=== PATIENT | female | born 1980 | race Caucasian/White ===

== ENCOUNTER 2018-09-04 23:06 | Emergency (ER) | payer OTHER, SELFPAY ==
[2018-09-04 23:06] VITALS: BP 149/88; PULSE 119; RESP 20; TEMP 36.8; O2SAT 97; BMI 41.5
[2018-09-04 23:14] VITALS: PULSE 121; RESP 16; O2SAT 97
[2018-09-04 23:32] LABS: Absolute Lymphocyte Count 2.68 X10^3/ul (0.83-4.51); Absolute Neutrophil Count 6.1 X10^3/uL (2.0-7.7); Basophil# 0.04 X10^3/uL; Basophil% 0.4 % (0-1); Eosinophil# 0.09 X10^3/uL; Eosinophils% 0.9 % (0-5); Hemoglobin 12.4 g/dl (12.0-15.0); Lymphocyte # 2.68 X10^3/ul (4.0); Lymphocyte % 28.1 % (19-41); Mean Corp Hgb Conc 32.6 g/gl (32-36); Mean Corpuscular Hgb 30.8 pg (27.0-32.0); Mean Corpuscular Volume 94.5 fL (81-99); Mean Platelet Vol. 9.4 fl (6.2-12.0); Monocyte# 0.57 X10^3/uL; Neutrophil # 6.05 X10^3/uL (2.7-7.7); Neutrophil % 63.4 % (47-70); Platelet Count 493 K/mm3 (150-450); RBC Distribution Width CV 12.2 % (11.6-14.6); RBC Distribution Width SD 41.4 fl (35.1-43.9); Red Blood Count 4.02 M/mm3 (4.2-5.4); White Blood Count 9.5 K/mm3 (4.4-11.0)
[2018-09-04 23:34] LABS: POSITIVE COUNT NO; POSITIVE DIFFERENTIAL NO; POSITIVE MORPHOLOGY NO
[2018-09-04] MEDS: Ondansetron 4 MG/2 ML Vial IV (23:34)
[2018-09-04] MEDS: Morphine 4 MG/ML Syringe IV (23:34)
[2018-09-04] MEDS: 0.9% Normal Saline 1,000 ML 1000 ML IV (23:35)
[2018-09-04 23:54] LABS: ALB/GLOB Ratio 0.9 RATIO (0.9-2.4); AST(SGOT) 44 U/L (15-37); Alanine Aminotransfer ALT/SGPT 46 U/L (13-56); Albumin, Serum 3.7 g/dL (3.2-5.0); Alkaline Phosphatase 51 U/L (45-117); Anion Gap 10 (5-15); BUN 13 mg/dL (7-18); BUN/Creat Ratio 20.9 RATIO (10-20); Calcium,Total 9.1 mg/dL (8.5-10.1); Chloride 101 mmol/L (98-107); Creatinine, Serum 0.62 mg/dL (0.55-1.02); EST Glomerular Filtration Rate 116 mL/min (>60); Est Glom Filt Rate - Afr Amer 140 mL/min (>60); Estimated Creatinine Clearance 90.97 ml/min; Globulin 4.3 g/dL (2.2-4.2); Glucose 173 mg/dL (74-106); Lipase 234 U/L (73-393); Potassium 4.4 mmol/L (3.5-5.1); Sodium Level 137 mmol/L (136-145)
[2018-09-05 00:26] LABS: Mucous, Urine 0 SEEN /hpf (<or=2+); Red Blood Cells-Urine 0 SEEN /hpf (0-5); White Blood Cells 0 SEEN /hpf (0-5)
[2018-09-05 00:33] LABS: Color, Urine Straw (Yellow); Glucose, Dipstick Normal (Normal); Internal QC Validated? YES +Cl - CLEAR BKGD; Ketone-Dipstick Negative (Negative); Leukocyte Esterase-Dipstick Negative /ul (Negative); Nitrite-Dipstick Negative (Negative); Occult Blood-Urine Negative /ul (Negative); Pregnancy, Urine Negative Negative; Protein-Dipstick 30 mg/dl (Negative); Urine Bilirubin Dipstick Negative (Negative); Urine Clarity Clear (Clear); Urine Urobilinogen Normal (Normal)
[2018-09-05 00:35] LABS: Bacteria RARE /hpf (None Seen); Squamous Epithelial Cells - UA 0-5 SEEN /hpf (5-10)
--- NOTE | 2018-09-05 01:03 | ED.RN ---
with dr. mayer permission, pt took her home seizure medication.
[2018-09-05 01:11] VITALS: BP 141/105; PULSE 118; RESP 17; O2SAT 95
[2018-09-05] MEDS: Morphine 4 MG/ML Syringe IV (01:14)
--- NOTE | 2018-09-05 02:12 | ED.VISSUMM ---
- ER Visit Summary Date of Service: 09/05/18 Chief Complaint: Abdominal pain History of Present Illness: The patient is a 37 F who presents with abdominal pain. She initially developed pain 2 to 3 days ago. She complains of pain in her left lower back radiating into her left flank and left upper and lower quadrants. She describes as aching. It waxes and wanes. She currently rates it as an 8 out of 10. She also reports nausea without vomiting. She is also had diarrhea for the past 2 to 3 days. She has not checked her temperature but does report subjective fever and sweats. She is scheduled to see her primary care physician for the symptoms in 2 days but it worsened tonight so she presented here for evaluation. Her last menstrual period was 6 weeks ago. She does have a history of kidney stones and ovarian cysts. Physical Examination: Heart rate 119 vitals otherwise unremarkable Patient appears uncomfortable Moist mucous membranes Heart regular tachycardia Lungs are clear Abdomen soft nondistended she is tender in the left upper and lower quadrants she also has some CVA tenderness on the left No guarding no rebound abdomen is nondistended Alert Test Results: Labs notable for platelets 493, glucose 173, AST 44. Lipase normal. Urinalysis shows protein otherwise normal. CT of the abdomen and pelvis shows bilateral renal calculi no ureteral calculi or obstructive uropathy. The bladder was over distended. Emergency Department Course and Treatment: Work-up as above shows no clear explanation for the patient's symptoms. However she does not appear to have ureterolithiasis, clear infectious process, obstruction. She voided after CT and her postvoid residual bladder scan was 0. She does not appear to have urinary retention. She does have an appointment with her primary care physician tomorrow. She was advised to keep this appointment. She understands to return for new or worsening symptoms. She was discharged. Treatment Plan: [] Disposition: Discharge Impression: Abdominal paini This note was generated with [employer] dictation software. It may contain incorrect words, spelling, and punctuation that were not noted in review of the chart prior to signing ED Disposition - Plan for ED Patient: Referrals: Ricky Shelton MD [Primary Care Provider] -
--- NOTE | 2018-09-05 03:10 | ED.DEP ---
ED Disposition - Plan for ED Patient: Instructions: ED Flank Pain Uncertain Cause, ED Abdominal Pain Unkn Cause Referrals: Ricky Shelton MD [Primary Care Provider] -
[2018-09-05 03:20] VITALS: BP 113/71; PULSE 113; RESP 18; O2SAT 93
--- NOTE | 2018-09-05 23:24 | CT_ITS ---
HISTORY: LEFT FLANK PAIN EXAMINATION: CT Abdomen And Pelvis W/ Contrast TECHNIQUE: Helically acquired images were obtained of the abdomen and pelvis following IV contrast. A radiation dose optimization technique was used for this scan. IV Contrast dosage and agent: 100ml Isovue 300 Oral contrast: Yes COMPARISON: None FINDINGS: Large body habitus with protuberant abdomen. LOWER CHEST: Clear. No pleural effusion or pericardial effusion. Fatty liver with prominent hepatic enlargement. 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 The right hepatic lobe spans 27 cm in craniocaudal dimension. Secondary mild deformity of the right kidney. No focal hepatic lesion or biliary dilatation. Negative gallbladder. Spleen is upper normal in size. Normal pancreas. Both kidneys are normal in position. The left kidney shows an upper pole 3 mm calyceal stone and a mid pole 7 mm calyceal stone. 2 x 1 mm calyceal stone at the upper to mid pole of the right kidney. No hydronephrosis or hydroureter. Bilateral renal opacification without suspicious renal lesion or pyelonephritis. The adrenal glands are not enlarged. Normal abdominal aorta and IVC. No ascites or retroperitoneal lymph node enlargement. GI tract: No obstruction. The cecum is midline in position. The appendix is not visualized. No pericecal or pericolonic inflammatory changes. Pelvis: Anteverted uterus which is normal in size. Urinary bladder is overdistended with estimated volume of 600 cc. No bladder stones or marrow lesion. The pelvis shows no free fluid or lymph node enlargement. Bones: No acute osseous abnormality. CT/Abdomen/Pelvis WITH Contrast IMPRESSION: 1. Two left renal stones and single right renal stone. No associated hydronephrosis or obstructive uropathy. 2. Overdistention of the urinary bladder with estimated volume of 600 cc. No bladder stones. 3. Fatty liver which shows generalized prominent enlargement. Details above. 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 No ascites. Individualized dose optimization techniques were used for this CT. at 0229 Reported and signed by: Ishmael Chen MD Electronically Signed: Ishmael Chen, at 2:28 EDT Tel , Service support ,
== END 2018-09-05 03:36 | disposition home or self-care (01) ==
PROVIDERS: Emergency Provider Emergency Medicine; Family Provider Family Medicine; PCP Family Medicine
DX: R10.9 Unspecified abdominal pain (principal); M54.5 Low back pain; R11.0 Nausea; R19.7 Diarrhea, unspecified; R61 Generalized hyperhidrosis; N20.0 Calculus of kidney; J45.909 Unspecified asthma, uncomplicated; F41.9 Anxiety disorder, unspecified; G40.909 Epilepsy, unspecified, not intractable, without status epilepticus; Z87.442 Personal history of urinary calculi; Z87.42 Personal history of other diseases of the female genital tract; Z79.899 Other long term (current) drug therapy
CPT/HCPCS: 74177; 80053; 81001; 81025; 83690; 85025; 96361; 96374; 96375; 96376; 99284; J7030; Q9967; A4216; J2405

== ENCOUNTER 2019-03-20 22:32 | Emergency (ER) | payer OTHER, SELFPAY ==
[2019-03-20 22:33] VITALS: BP 132/88; PULSE 121; RESP 16; TEMP 37.2; O2SAT 97; BMI 39.2
--- NOTE | 2019-03-20 22:49 | RAD_ITS ---
HISTORY: SLIPPED ON SPILLED LIQUID EXAMINATION/TECHNIQUE: XR: Right humerus 3 views COMPARISON: None FINDINGS: No fracture, dislocation, or bony abnormality. No radiopaque foreign body. As visualized, the soft tissues are negative. RAD/Humerus min 2 Views IMPRESSION: Negative exam. No fracture or acute osseous abnormality. at 6014 Reported and signed by: Ishmael Chen MD Electronically Signed: Ishmael Chen, at 23:23 EST Tel , Service support ,
--- NOTE | 2019-03-20 22:49 | ED.DCSUM_ITS ---
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 She states her feet went out from underneath her and she landed on her right side. She did not strike her head. She has pain throughout her entire right arm. She did break her right wrist a year ago, but never required surgery. She complains of some mild pain to the right leg but is able to ambulate without difficulty. She did take Tylenol prior to arrival. She complains of some mild nausea. - Past Medical History (1) Seizures Status: Chronic Past Medical History - Allergies and Home Meds Allergies/Adverse Reactions: Allergies Penicillins Allergy (Verified 03/20/19 22:38) Hives tramadol Allergy (Verified 03/20/19 22:38) Hives Primary Care Physician: Ricky Shelton MD [Primary Care Provider] - Prior records reviewed: Yes Past Medical History: - - Reviewed Surgical History: - - Knee surgery Smoking Status: Never smoker Review of Systems General: Denies: Chills, Fever Eyes: Denies: Visual changes - bilaterally ENT: Denies: Bilateral ear pain, Sore throat Cardiovascular: Denies: Chest pain, Palpitations Respiratory: Denies: Dyspnea, Cough Gastrointestinal: Reports: Nausea, Vomiting - Vomited after taking her Keppra. Denies: Abdominal pain, Diarrhea Genitourinary: Denies: Dysuria, Hematuria Musculoskeletal: Reports: Extremity Pain. Denies: Neck pain, Swelling Skin: Denies: Rash, Abrasions Neurological: Denies: Headache, Weakness, Parasthesia Hematologic: Denies: Easy bruising, Easy bleeding Allergy: Denies: Uticaria Physical Exam Vital Signs/Narrative: Vital Signs Temp Pulse Resp BP Pulse Ox 03/20/19 22:33 99.0 F 121 H 16 132/88 H 97 Inital Vital Signs reviewed: Yes General: Well nourished, Well developed Head: Normocephalic, Atraumatic Eyes: Perrl, EOMI ENT: Moist mucous membranes Neck: Supple Cardiovascular: Regular rate, Regular rhythm Respiratory: No distress, CTA bilaterally Abdomen: Soft, Nontender Back: Nontender Extremities: - - Mild tenderness along the proximal right forearm and throughout the posterior humerus. No deformity noted. No tenderness along the clavicle. Good range of motion and strong distal pulses. Skin: Normal color Neurological: Alert, Oriented x3, Normal Strength, Normal Sensation Psychological: Normal affect Diagnostic/Tx/Re-eval Impressions Humerus X-Ray 03/20/19 22:49 IMPRESSION: Negative exam. No fracture or acute osseous abnormality. at 2324 Reported and signed by: Ishmael Chen MD Electronically Signed: Ishmael Chen, at 23:23 EST Tel , Service support , Forearm X-Ray 03/20/19 23:03 IMPRESSION: Negative exam. No fracture or acute osseous abnormality. at 2321 Reported and signed by: Ishmael Chen MD Electronically Signed: Ishmael Chen, at 23:20 EST Tel , Service support , 03/20/19 22:49 Xray Humerus [Humerus min 2 Views] [RAD] Stat 03/20/19 23:03 Forearm 2 Views [RAD] Stat - Medical Decision Making Patient was given Zofran and naproxen here for pain. Test results are discussed with her. She will be given a sling that she can wear for comfort. She will follow-up with [facility]. ED Disposition - Plan for ED Patient: Disposition: Home or Assisted Living Diagnosis: Sprain of right upper arm Instructions: FALL, Mechanical, Sprain Elbow Prescriptions: Naproxen [Naprosyn] 500 mg PO BID PRN PRN #20 tablet PRN Reason: Pain Score 1-10/10 [facility] - 3-5 Days
[2019-03-20] MEDS: Ondansetron ODT 4 MG Tablet PO (22:57)
[2019-03-20] MEDS: Naproxen 500 MG Tablet PO (22:57)
--- NOTE | 2019-03-20 23:03 | RAD_ITS ---
HISTORY: SLIPPED ON SPILLED LIQUID EXAMINATION/TECHNIQUE: XR right forearm 2 views COMPARISON: Right humerus 03/20/2019 FINDINGS: No fracture, dislocation, or bony abnormality. No radiopaque foreign body. As visualized, the soft tissues are negative. RAD/Forearm 2 Views IMPRESSION: Negative exam. No fracture or acute osseous abnormality. at 2321 Reported and signed by: Ishmael Chen MD Electronically Signed: Ishmael Chen, at 23:20 EST Tel , Service support ,
[2019-03-20 23:46] VITALS: PULSE 74; RESP 20; O2SAT 99
--- NOTE | 2019-03-20 23:47 | ED.RN ---
THIS NURSE REVIEWED D/C INSTRUCTIONS WITH PT. PT VERBALIZED UNDERSTANDING OF INSTRUCTIONS
== END 2019-03-20 23:49 | disposition home or self-care (01) ==
PROVIDERS: Emergency Provider Emergency Medicine; Family Provider Family Medicine; PCP Family Medicine
DX: S53.401A Unspecified sprain of right elbow, initial encounter (principal); R11.0 Nausea; M79.604 Pain in right leg; W19.XXXA Unspecified fall, initial encounter; Y93.9 Activity, unspecified; Y92.9 Unspecified place or not applicable; G40.909 Epilepsy, unspecified, not intractable, without status epilepticus; Z79.899 Other long term (current) drug therapy
CPT/HCPCS: 73060; 73090; 99284

== ENCOUNTER 2019-04-28 07:05 | Emergency (ER) | payer OTHER, SELFPAY ==
[2019-03-27 08:33] VITALS: BMI 39.2
[2019-04-28 07:06] VITALS: BP 117/87; PULSE 220; RESP 16; TEMP 37.2; O2SAT 97; BMI 40.6
[2019-04-28] MEDS: Adenosine 6 MG/2 ML Syringe IV (07:17)
[2019-04-28 07:18] VITALS: BP 129/85; PULSE 131; RESP 18; O2SAT 99
--- NOTE | 2019-04-28 07:23 | RAD_ITS ---
STUDY: X-RAY CHEST REASON FOR EXAM: Female, 38 years old. C/O HEART RACING AND SHORTNESS OF BREATH TECHNIQUE: 2 AP portable views COMPARISON: 2015 FINDINGS: EKG leads overlie the chest The lungs are clear and expanded. There is no demonstrated pleural abnormality. Normal size heart. Normal mediastinum and melisa. Normal visualized pulmonary arteries. Normal visualized aortic arch and descending thoracic aorta. There are diffuse degenerative changes of the visualized thoracic spine. Normal visualized ribs, clavicles, and shoulders. There is no demonstrated abnormality of the visualized soft tissue structures of the upper abdomen. RAD/Chest 1 View (Portable) IMPRESSION: No acute pulmonary process Electronically Signed: Gary Lima MD at 8:13 EST , Service support ,
--- NOTE | 2019-04-28 07:23 | EKG12_ITS ---
Test Reason : TACHY Blood Pressure : / mmHG Vent. Rate : 131 BPM Atrial Rate : 131 BPM P-R Int : 148 ms QRS Dur : 080 ms QT Int : 308 ms P-R-T Axes : 065 054 071 degrees QTc Int : 454 ms Sinus tachycardia Otherwise normal ECG Confirmed by MEEK TAVERAS, ARPIT ([id number]), acquisitions editor ARELI CASANOVA ([id number]) on 04/30/2019 8:51:58 AM Referred By: JORDY Confirmed By:ARPIT EDEN MD
[2019-04-28 07:25] VITALS: O2SAT 99
[2019-04-28] MEDS: Aspirin 81 MG TAB.CHEW 324 MG PO (07:25)
--- NOTE | 2019-04-28 07:25 | ED.VISSUMM ---
- ER Visit Summary Date of Service: 04/28/19 Chief Complaint: High heart rate, palpitations History of Present Illness: The patient is a 38 F who has a high heart rate and palpitations. It started this morning. She feels like her heart is racing. She has never had anything like this before. She denies any chest pain but she does feel short of breath. She states that she has had URI-like symptoms recently but no other illnesses. No history of any cardiac disease. She is a history of asthma but this feels different. Denies any other symptoms. Physical Examination: Vital signs reviewed. HEENT exam unremarkable. Heart is extremely tachycardic and regular without murmurs. Lungs are clear to auscultation. Abdomen is soft and nontender. Extremities reveal no edema. Peripheral pulses are equal. Skin exam normal. Neurologic exam normal. Test Results: The patient's initial EKG was in SVT with a rate of about 216. There are nonspecific changes likely due to rate. Laboratory studies show a white blood cell count of 12.9. Troponin normal. TSH, magnesium and potassium are normal. Chest x-ray normal Emergency Department Course and Treatment: The patient was given adenosine 6 mg fast IV push. This converted her to a sinus tachycardia. She states that her resting heart rate is about 100-110. Her repeat heart rate was 119 and still in sinus rhythm when I reevaluated her about 1 hour later. Her labs are all unremarkable. She feels much better and would like to go home. At this point I do not feel she needs any medications. This is her first episode of SVT. She will monitor this at home. I will give her cardiology follow-up Treatment Plan: [] Disposition: Discharge Impression: SVT Critical care time 30 minutes which included close monitoring of a potentially life-threatening illness that necessitated close monitoring and myself at the bedside and included history taken, interpretation of laboratory studies and radiologic studies. This note was generated with [employer] software. It may contain incorrect words, spelling, and punctuation that were not noted in review of the chart prior to signing ED Disposition - Plan for ED Patient: Referrals: Ricky Shelton MD [Primary Care Provider] -
--- NOTE | 2019-04-28 07:32 | EKG12_ITS ---
Test Reason : TACHY Blood Pressure : / mmHG Vent. Rate : 216 BPM Atrial Rate : 220 BPM P-R Int : 000 ms QRS Dur : 082 ms QT Int : 214 ms P-R-T Axes : 000 064 053 degrees QTc Int : 405 ms Supraventricular tachycardia Marked ST abnormality, possible inferior subendocardial injury Abnormal ECG Reconfirmed by MEEK TAVERAS, ARPIT ([id number]), online content editor SOPHIE ANTON ([id number]) on 04/30/2019 1:02:40 PM Referred By: JORDY Confirmed By:ARPIT EDEN MD
[2019-04-28 07:41] VITALS: BP 129/85; PULSE 121; RESP 15; O2SAT 98
[2019-04-28 07:46] LABS: Absolute Neutrophil Count 7.3 X10^3/uL (2.0-7.7); Basophil% 0.8 % (0-1); Eosinophil# 0.14 X10^3/uL; Eosinophils% 1.1 % (0-5); Hematocrit 41.3 % (37-47); Hemoglobin 13.1 g/dL (12.0-15.0); Lymphocyte % 34.1 % (19-41); Mean Corp Hgb Conc 31.7 g/dL (32-36); Mean Corpuscular Volume 94.7 fL (81-99); Mean Platelet Vol. 10.3 fl (6.2-12.0); Monocyte# 0.79 X10^3/uL; Monocyte% 6.1 % (0-10); NRBC Flagged by Analyzer 0 % (0-5); Neutrophil # 7.28 X10^3/uL (2.7-7.7); Neutrophil % 56.5 % (47-70); POSITIVE MORPHOLOGY YES; Platelet Count 547 K/mm3 (150-450); RBC Distribution Width CV 12.3 % (11.6-14.6); RBC Distribution Width SD 42.9 fl (35.1-43.9); Red Blood Count 4.36 M/mm3 (4.2-5.4); White Blood Count 12.9 K/mm3 (4.4-11.0)
[2019-04-28 07:49] LABS: Differential Indicated SCAN CRITERIA MET
[2019-04-28 08:02] LABS: Anion Gap 10 (5-15); BUN 8 mg/dL (7-18); BUN/Creat Ratio 10.3 RATIO (10-20); Calcium,Total 8.3 mg/dL (8.5-10.1); Chloride 107 mmol/L (98-107); Creatinine, Serum 0.77 mg/dL (0.55-1.02); EST Glomerular Filtration Rate 89 mL/min (>60); Est Glom Filt Rate - Afr Amer 108 mL/min (>60); Estimated Creatinine Clearance 76.22 ml/min; Glucose 210 mg/dL (74-106); Magnesium 1.8 mg/dL (1.6-2.6); Potassium 3.9 mmol/L (3.5-5.1); Sodium Level 138 mmol/L (136-145); Thyroid Stim Hormone (TSH) 3.59 uIU/mL (0.358-3.74)
[2019-04-28 08:14] VITALS: BP 130/87; PULSE 123; RESP 13; O2SAT 99
[2019-04-28 08:23] LABS: Platelet Estimate SLT INC (ADEQ)
--- NOTE | 2019-04-28 08:23 | ED.DEP ---
ED Disposition - Plan for ED Patient: Disposition: Home or Assisted Living Instructions: Palpitations Referrals: Ricky Shelton MD [Primary Care Provider] - Nasim Person MD [STAFF PHYSICIAN] -
[2019-04-28 08:26] VITALS: BP 130/87; PULSE 123; RESP 18; O2SAT 99
== END 2019-04-28 08:26 | disposition home or self-care (01) ==
PROVIDERS: Emergency Provider Emergency Medicine; Family Provider Family Medicine; PCP Family Medicine
DX: I47.1 Supraventricular tachycardia (principal); J45.909 Unspecified asthma, uncomplicated
CPT/HCPCS: 71045; 80048; 83735; 84443; 84484; 85025; 93005; 96374; 99285; J7030; A4216; J0153

== ENCOUNTER 2019-06-20 15:42 | Emergency (ER) | payer OTHER, SELFPAY ==
[2019-06-20 15:43] VITALS: BP 127/91; PULSE 223; RESP 18; TEMP 36.9; O2SAT 96; BMI 37.6
--- NOTE | 2019-06-20 15:52 | EKG12_ITS ---
Test Reason : SOB Blood Pressure : / mmHG Vent. Rate : 222 BPM Atrial Rate : 222 BPM P-R Int : 000 ms QRS Dur : 108 ms QT Int : 186 ms P-R-T Axes : 000 111 -03 degrees QTc Int : 357 ms Supraventricular tachycardia Right axis deviation Incomplete right bundle branch block Right ventricular hypertrophy Nonspecific ST and T wave abnormality Abnormal ECG Confirmed by VINNIE TAVERAS, ERINN ([id number]), advertising editor ARELI CASANOVA ([id number]) on 06/24/2019 8:53:16 AM Referred By: STEVEN Confirmed By:SCOUT BIRMINGHAM MD
[2019-06-20 16:06] LABS: Absolute Lymphocyte Count 3.11 X10^3/uL (0.83-4.51); Absolute Neutrophil Count 8.3 X10^3/uL (2.0-7.7); Basophil# 0.11 X10^3/uL; Basophil% 0.9 % (0-1); Eosinophil# 0.13 X10^3/uL; Hemoglobin 13.2 g/dL (12.0-15.0); Lymphocyte # 3.11 X10^3/ul (4.0); Lymphocyte % 24.8 % (19-41); Mean Corp Hgb Conc 32.2 g/dL (32-36); Mean Corpuscular Hgb 29.5 pg (27.0-32.0); Mean Corpuscular Volume 91.7 fL (81-99); Mean Platelet Vol. 10.3 fl (6.2-12.0); Monocyte# 0.72 X10^3/uL; Monocyte% 5.8 % (0-10); NRBC Flagged by Analyzer 0 % (0-5); Neutrophil # 8.28 X10^3/uL (2.7-7.7); Neutrophil % 66.1 % (47-70); Platelet Count 485 K/mm3 (150-450); RBC Distribution Width CV 13.1 % (11.6-14.6); RBC Distribution Width SD 43.5 fl (35.1-43.9); Red Blood Count 4.47 M/mm3 (4.2-5.4); White Blood Count 12.5 K/mm3 (4.4-11.0)
--- NOTE | 2019-06-20 16:08 | EKG12_ITS ---
Test Reason : REPEAT Blood Pressure : / mmHG Vent. Rate : 124 BPM Atrial Rate : 124 BPM P-R Int : 148 ms QRS Dur : 082 ms QT Int : 314 ms P-R-T Axes : 053 044 063 degrees QTc Int : 451 ms Sinus tachycardia Otherwise normal ECG Confirmed by DOLLY TAVERAS, GIOVANY ([id number]), food editor ARELI CASANOVA ([id number]) on 06/24/2019 9:49:39 AM Referred By: NATAN Confirmed By:GIOVANY ALBERTO MD
--- NOTE | 2019-06-20 16:09 | ED.DCSUM_ITS ---
History of Present Illness Chief Complaint: Palpitations Informant: Patient Onset: Hours - less than 1 Context: Sudden Onset - nonexertional; started at random Timing: Continuous Quality: racing heartbeat Location: chest Current Severity: Severe Maximum Severity: Severe Worsened by: nothing Relieved by: nothing Associated Symptoms: mildly lightheaded. no acute cp, sob, leg pain or swelling. Narrative: Patient recently had bronchitis that she went to urgent care several times, she was treated with prednisone and antibiotics, partially for her asthma exacerbation, it helped her asthma but not her cough which eventually went away. She has been better for for 5 days, but woke up this morning and overnight, coughing sputum been having more wheezing. She finished her prednisone last week. During the day today, while she was getting ready for work, she suddenly felt her heart start racing uncontrollably which has been continuous since it started less than an hour prior to arrival. She works at the [employer] here in [place] [facility]. She had this happen once before and they broke her out of it with adenosine, but she has yet to follow-up since this happened. - Past Medical History (1) Asthma Status: Chronic (2) SVT (supraventricular tachycardia) Status: Resolved (3) Seizures Status: Chronic Past Medical History - Allergies and Home Meds Allergies/Adverse Reactions: Allergies Penicillins Allergy (Verified 06/20/19 15:43) Hives tramadol Allergy (Verified 06/20/19 15:43) Hives Primary Care Physician: Ricky Shelton MD [Primary Care Provider] - Surgical History: - - Knee surgery Lives: Alone Smoking Status: Never smoker Review of Systems General: Denies: Chills, Fever, Sweats Eyes: Denies: Visual changes - bilaterally, Diplopia ENT: Denies: Rhinorrhea, Sore throat Cardiovascular: Reports: Palpitations, Heart racing. Denies: Chest pain Respiratory: Reports: Dyspnea - wheezing preexisting before palpitations started today and unchanged w/ palpitations, Cough, Sputum. Denies: Dyspnea on exertion, Orthopnea Gastrointestinal: Denies: Abdominal pain, Nausea, Vomiting, Diarrhea, Melena, Hematochezia Genitourinary: Denies: Dysuria, Hematuria, Frequency Musculoskeletal: Denies: Back pain, Swelling, Extremity Pain Skin: Denies: Rash, Wounds Neurological: Denies: Headache, Weakness, Numbness Physical Exam Vital Signs/Narrative: Vital Signs Temp Pulse Resp BP Pulse Ox 06/20/19 15:43 98.5 F 223 H 18 127/91 H 96 Inital Vital Signs reviewed: Yes General: Well nourished, Well developed, No Acute Distress - well-appearing, conversive Head: Normocephalic, Atraumatic Eyes: Perrl, EOMI ENT: Moist mucous membranes, No rhinorrhea Neck: Supple, Nontender, No JVD Cardiovascular: Regular rate, No murmurs, Tachycardia Respiratory: No distress, CTA bilaterally, Chest nontender Abdomen: Soft, Nontender, Nondistended, Normal bowel sounds Back: Nontender, Normal Inspection Extremities: Nontender, No edema. Negative for: Calf Tenderness Skin: Normal color, No rash, No Trauma Neurological: Alert, Oriented x3, Cranial nerves II-XII grossly intact, Normal Strength, Normal Sensation, Normal Gait Psychological: Normal affect, Normal Mood Diagnostic/Tx/Re-eval Impressions Chest X-Ray 06/20/19 16:25 IMPRESSION: No acute cardiopulmonary findings Electronically Signed: Gabriel Serrano, at 16:51 EST Tel , Service support , 06/20/19 16:25 Chest PA and Lateral [RAD] Stat Laboratory Results 06/20/19 06/20/19 Unknown Unknown WBC 12.5 H RBC 4.47 Hgb 13.2 Hct 41.0 MCV 91.7 MCH 29.5 MCHC 32.2 RDW Std Deviation 43.5 RDW Coeff of Yoni 13.1 Plt Count 485 H MPV 10.3 Immature Gran % (Auto) 1.400 H Neut % (Auto) 66.1 Lymph % (Auto) 24.8 Barren % (Auto) 5.8 Eos % (Auto) 1.0 Baso % (Auto) 0.9 Absolute Neuts (auto) 8.3 H Absolute Lymphs (auto) 3.11 Nucleated RBC % 0 Sodium 133 L Potassium 4.4 Chloride 102 Carbon Dioxide 20.0 L Anion Gap 11 BUN 11 Creatinine 1.00 Estim Creat Clear Calc 61.51 Est GFR (MDRD) Af Amer 81 Est GFR (MDRD) Non-Af 67 BUN/Creatinine Ratio 11.0 Glucose 403 H Calcium 9.2 Troponin I < 0.015 - Rhythm Strip Rhythm Strip: SVT Rate: 222 Ectopy: None - EKG Initial EKG Interpretation: SVT - narrow complex Follow-up EKG Interpretation: No Acute Injury Pattern, Sinus Tachycardia - Medical Decision Making Modified vagal maneuver on first attempt broke her out of her SVT. Repeat EKG shows sinus tachycardia without any acute abnormalities or interval abnormalities. 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 She had no recurrence. She felt well. She has mild wheezing, her blood sugar is 400 which is higher than she has ever been before. She states diabetes runs in her family but she has always had good fasting blood sugars. I discussed with Dr. Shelton who agrees with putting her on metformin 500 twice daily and having her follow-up in the office. Discussed with Dr. Hicks who advises given her asthma going with verapamil 120 mg daily and having her follow-up in the office patient is amenable to this. - Critical Care Time Critical care time (excluding procedures): 30-74 minutes - 35 min, Including time spent:, Discussing w/Patient &/or Family/[employer] Goods Supervisor, Discussing w/Consultants, Performing Direct Patient Care at Bedside Procedures Procedure(s): Cardioversion. Performed via modified Valsalva technique. Resulted in immediate break in SVT with conversion to sinus tachycardia and resolution of patient's symptoms. No complications. Tolerated well. ED Disposition - Plan for ED Patient: Disposition: Home or Assisted Living Diagnosis: SVT (supraventricular tachycardia), Hyperglycemia, Asthma exacerbation, URI (upper respiratory infection) Instructions: Pat (P.A.T.) Prescriptions: Metformin HCl 500 mg PO BID #60 tab Transmission Status: Pending to [facility] - [id number] Verapamil HCl [Verapamil ER] 120 mg PO DAILY #30 cap24h.pel Transmission Status: Pending to [facility] - [id number] Referrals: Ricky Shelton MD [Primary Care Provider] - 5-7 Days Boy Hicks MD [STAFF PHYSICIAN] - 1 Week (call for appt; can see any of the cardiologists)
[2019-06-20 16:20] LABS: Anion Gap 11 (5-15); BUN 11 mg/dL (7-18); Calcium,Total 9.2 mg/dL (8.5-10.1); Chloride 102 mmol/L (98-107); EST Glomerular Filtration Rate 67 mL/min (>60); Est Glom Filt Rate - Afr Amer 81 mL/min (>60); Estimated Creatinine Clearance 61.51 ml/min; Glucose 403 mg/dL (74-106); Potassium 4.4 mmol/L (3.5-5.1); Sodium Level 133 mmol/L (136-145)
--- NOTE | 2019-06-20 16:25 | RAD_ITS ---
STUDY: X-RAY CHEST REASON FOR EXAM: Female, 38 years old. Cough and shortness of breath TECHNIQUE: PA and lateral views of the chest. COMPARISON: 04/28/2019. FINDINGS: Cardiac silhouette unremarkable. Pulmonary vascularity unremarkable. Aorta unremarkable. No focal airspace opacities. No pleural effusions. Upper abdomen unremarkable. Osseous structures intact. No pneumothorax. RAD/Chest PA and Lateral IMPRESSION: No acute cardiopulmonary findings Electronically Signed: Gabriel Serrano, at 16:51 EST Tel , Service support ,
[2019-06-20 16:43] VITALS: BP 114/72; PULSE 128; RESP 18; O2SAT 97
[2019-06-20] MEDS: Insulin Lispro 100 UNIT/ML INSULN.PEN 12 UNIT SC (16:47)
[2019-06-20 17:14] VITALS: BP 131/66; PULSE 129; RESP 20; O2SAT 96
[2019-06-20 18:06] LABS: Bedside Glucose 294 mg/dL (70-110)
== END 2019-06-20 18:47 | disposition home or self-care (01) ==
PROVIDERS: Emergency Provider Emergency Medicine; PCP Family Medicine
DX: I47.1 Supraventricular tachycardia (principal); E11.65 Type 2 diabetes mellitus with hyperglycemia; J45.901 Unspecified asthma with (acute) exacerbation; J06.9 Acute upper respiratory infection, unspecified; G40.909 Epilepsy, unspecified, not intractable, without status epilepticus; Z79.84 Long term (current) use of oral hypoglycemic drugs; Z79.899 Other long term (current) drug therapy
CPT/HCPCS: 71046; 80048; 82962; 84484; 85025; 93005; 96360; 96372; 99284; J7040; A4216

== ENCOUNTER 2019-11-13 10:22 | Emergency (ER) | payer OTHER, SELFPAY ==
[2019-09-04 09:55] VITALS: BMI 37.6
[2019-11-13 10:24] VITALS: BP 130/76; PULSE 85; RESP 18; TEMP 36.6; O2SAT 96; BMI 36.8
--- NOTE | 2019-11-13 10:42 | CT_ITS ---
STUDY: CT ABDOMEN AND PELVIS WITHOUT CONTRAST REASON FOR EXAM: Female, 39 years old. LT FLANK PAIN RADIATION DOSAGE (If Supplied By Facility): CTDIvol = ( 17.58 ) mGy, DLP = ( 787.83 ) mGycm TECHNIQUE: Transaxial images were obtained from the dome of the diaphragm to the symphysis pubis without oral contrast, and without intravenous contrast. Sagittal and coronal images were reconstructed. Individualized dose optimization techniques were used for this CT. COMPARISON: 09/05/2018 FINDINGS: The visualized lung bases are unremarkable. The visualized portions of the heart are within normal limits. Stable hepatomegaly with fatty infiltration. No suspicious solid lesion identified. Focal fatty sparing along the gallbladder onofre. Normal gallbladder and extrahepatic biliary system. Normal spleen. Normal pancreas. Normal bilateral adrenal glands. Right kidney shows nonobstructing nephrolithiasis, largest stone measures 4 mm. Left kidney shows hydronephrosis and hydroureter with perinephric and periureteral inflammatory stranding. There are also nonobstructing stones noted in the left kidney, largest measures 0.7 cm. No obstructing stone, stricture or mass noted along the course of the left ureter. Findings suggest either nonradiopaque stone or recent passage of stone. Normal visualized stomach. Normal small intestine. Normal colon. There is non-visualization of the appendix. Normal abdominal aorta. Normal inferior vena cava. Normal retroperitoneum. Normal urinary bladder. Normal visualized uterus. No suspicious adnexal mass or free fluid Normal abdominal wall. Normal osseous structures. CT/Abdomen/Pelvis without Cont IMPRESSION: Left-sided hydronephrosis and hydroureter with perinephric and periureteral inflammatory stranding. However, there is no obstructing stone noted. Findings suggest either recent passage of stone or nonradiopaque calcification Bilateral nonobstructing nephrolithiasis Stable hepatomegaly with diffuse fatty infiltration of the liver, no discrete lesion Electronically Signed: Gary Lima MD at 11:43 EDT , Service support ,
--- NOTE | 2019-11-13 10:48 | ED.VISSUMM ---
- ER Visit Summary Date of Service: 11/13/19 Chief Complaint: Left flank pain History of Present Illness: The patient is a 39 F who presents with left flank pain that has been getting worse over the past 2 days. Patient states it is gradually gotten worse. Patient states is a constant aching but stabbing at times. Patient admits to some nausea and vomiting due to the pain. Patient also admits to some diarrhea. Patient admits to some dysuria urgency and frequency. Patient denies any hematuria. Patient denies any hematemesis or coffee-ground emesis. Patient denies any melena or hematochezia. Physical Examination: Vital signs are stable. Patient is afebrile. Patient is in no acute distress. Oral mucosa is pink and moist. Neck is supple. Trachea is midline. There is no JVD. Heart was regular rate and rhythm. Lungs are clear and equal bilaterally. Abdomen is soft. Bowel sounds are normal. There is some left CVA tenderness. There is no rebound or guarding noted. Cranial nerves II through XII are intact. There are no focal motor or sensory deficits noted. Extremities are intact. There is no calf tenderness or edema. Test Results: CBC was normal. Comprehensive metabolic profile showed an elevated glucose of 233 but was otherwise within normal limits. Urinalysis showed leukocyte esterase of 500 with 50-100 white blood cells and 25-50 red blood cells. There were 10-25 epithelial cells and 4+ bacteria. hCG was negative. CT scan of the abdomen and pelvis was obtained. There is left hydronephrosis and hydroureter but there is no calculus noted. This was interpreted by the radiologist and reviewed by myself. Emergency Department Course and Treatment: Patient was given IV fluids here. Patient was given morphine and Zofran initially. Urine culture was sent. Patient was given a dose of Rocephin here. Patient is able to tolerate p.o. fluids. Patient was given a prescription for Cipro. Patient was instructed to drink plenty of fluids. Patient was instructed to follow-up with her primary care physician in 5 to 7 days. Patient understood and was agreeable with the plan. All questions were answered. Disposition: Discharge home Impression: Left pyelonephritis This note was generated with [employer] dictation software. It may contain incorrect words, spelling, and punctuation that were not noted in review of the chart prior to signing ED Disposition - Plan for ED Patient: Disposition: Home or Assisted Living Diagnosis: Pyelonephritis Instructions: ED Pyelonephritis Female Adult Prescriptions: Ciprofloxacin [Cipro] 500 mg PO BID #14 tab Prescription Printed Referrals: Ricky Shelton MD [Primary Care Provider] - 5-7 Days
[2019-11-13 10:57] LABS: Absolute Lymphocyte Count 2.95 X10^3/uL (0.83-4.51); Absolute Neutrophil Count 5.4 X10^3/uL (2.0-7.7); Basophil# 0.05 X10^3/uL; Basophil% 0.5 % (0-1); Eosinophil# 0.11 X10^3/uL; Eosinophils% 1.2 % (0-5); Hematocrit 38.2 % (37-47); Hemoglobin 12.1 g/dL (12.0-15.0); Lymphocyte # 2.95 X10^3/ul (4.0); Lymphocyte % 31.7 % (19-41); Mean Corp Hgb Conc 31.7 g/dL (32-36); Mean Corpuscular Volume 94.6 fL (81-99); Mean Platelet Vol. 9.6 fl (6.2-12.0); Monocyte# 0.69 X10^3/uL; Monocyte% 7.4 % (0-10); NRBC Flagged by Analyzer 0 % (0-5); Neutrophil # 5.43 X10^3/uL (2.7-7.7); Neutrophil % 58.4 % (47-70); Platelet Count 397 K/mm3 (150-450); RBC Distribution Width CV 12.9 % (11.6-14.6); RBC Distribution Width SD 44.4 fl (35.1-43.9); Red Blood Count 4.04 M/mm3 (4.2-5.4); White Blood Count 9.3 K/mm3 (4.4-11.0)
[2019-11-13 11:08] LABS: Internal QC Validated? YES +Cl - CLEAR BKGD
[2019-11-13 11:09] LABS: Pregnancy, Serum, hCG Quali. NEGATIVE Negative
[2019-11-13 11:26] LABS: ALB/GLOB Ratio 0.9 RATIO (0.9-2.4); AST(SGOT) 27 U/L (15-37); Alanine Aminotransfer ALT/SGPT 45 U/L (13-56); Albumin, Serum 3.6 g/dL (3.2-5.0); Alkaline Phosphatase 60 U/L (45-117); Anion Gap 6 (5-15); BUN 20 mg/dL (7-18); BUN/Creat Ratio 17.7 RATIO (10-20); Calcium,Total 8.8 mg/dL (8.5-10.1); Chloride 104 mmol/L (98-107); Creatinine, Serum 1.13 mg/dL (0.55-1.02); EST Glomerular Filtration Rate 58 mL/min (>60); Est Glom Filt Rate - Afr Amer 70 mL/min (>60); Estimated Creatinine Clearance 51.44 ml/min; Globulin 4.2 g/dL (2.2-4.2); Glucose 233 mg/dL (74-106); Protein, Total 7.8 g/dL (6.4-8.2); Sodium Level 136 mmol/L (136-145)
[2019-11-13] MEDS: 0.9% Normal Saline 1,000 ML 1000 ML IV (11:29)
[2019-11-13] MEDS: Ondansetron 4 MG/2 ML Vial IV (11:29)
[2019-11-13] MEDS: Morphine 4 MG/ML Syringe IV ×2 (11:29→13:22)
[2019-11-13 11:56] LABS: Mucous, Urine 0 SEEN /hpf (<or=2+)
[2019-11-13 12:01] LABS: Color, Urine Yellow (Yellow); Glucose, Dipstick Normal (Normal); Ketone-Dipstick Negative (Negative); Leukocyte Esterase-Dipstick 500 /ul (Negative); Nitrite-Dipstick Negative (Negative); Occult Blood-Urine 250 /ul (Negative); Protein-Dipstick 100 mg/dl (Negative); Urine Bilirubin Dipstick Negative (Negative); Urine Clarity Cloudy (Clear); Urine Urobilinogen Normal (Normal)
[2019-11-13 12:06] LABS: White Blood Cells 50-100 SEEN /hpf (0-5)
[2019-11-13 12:07] LABS: Bacteria 4+ /hpf (None Seen); Red Blood Cells-Urine 25-50 SEEN /hpf (0-5); Squamous Epithelial Cells - UA 10-25 SEEN /hpf (5-10)
[2019-11-13] MEDS: Ceftriaxone 1 GM/50 ML BAG IV (13:23)
[2019-11-13 13:28] VITALS: RESP 18
[2019-11-13 14:56] VITALS: BP 104/57; PULSE 83; RESP 15; O2SAT 96
== END 2019-11-13 15:09 | disposition home or self-care (01) ==
PROVIDERS: Emergency Provider Emergency Medicine; PCP Family Medicine
DX: N12 Tubulo-interstitial nephritis, not specified as acute or chronic (principal); E66.9 Obesity, unspecified
CPT/HCPCS: 74176; 80053; 81001; 84703; 85025; 96361; 96365; 96366; 96375; 96376; 99284; J7030; J7050; A4216; J2405

== ENCOUNTER 2019-11-26 15:58 | Emergency (ER) | payer OTHER, SELFPAY ==
[2019-11-26 16:00] VITALS: BP 128/76; PULSE 89; RESP 16; TEMP 36.7; O2SAT 94; BMI 35.9
--- NOTE | 2019-11-26 16:13 | CT_ITS ---
STUDY: CT ABDOMEN AND PELVIS WITH CONTRAST REASON FOR EXAM: Female, 39 years old. Right flank pain for 2 days. Recently diagnosed with left hilar nephritis. RADIATION DOSAGE (If Supplied By Facility): CTDIvol = ( 16.87 ) mGy, DLP = ( 1151.12 ) mGycm TECHNIQUE: Transaxial images were obtained from the dome of the diaphragm to the symphysis pubis without oral contrast. IV 100mL Isovue-300 was administered. Sagittal and coronal images were reconstructed. Individualized dose optimization techniques were used for this CT. COMPARISON: CT of the abdomen and pelvis, 11/13/2019. FINDINGS: The visualized lung bases are unremarkable. The visualized portions of the heart are within normal limits. The liver is enlarged and diffusely fatty infiltrated. There is no focal mass. Normal gallbladder and extrahepatic biliary system. Normal spleen. Normal pancreas. Normal bilateral adrenal glands. The right kidney is of normal size and cortical thickness. There is normal contrast enhancement. There is a 3 mm nonobstructing calculus in the upper calyx. There is no hydronephrosis. Normal right ureter. The left kidney is of normal size and cortical thickness. There is normal contrast enhancement. There is a nonobstructing 5 mm calcification in the upper pole calyx. There is a nonobstructing 6 mm calcification in the lower pole calyx. There is no hydronephrosis. Normal left ureter. Normal visualized stomach. Normal small intestine. There is a wandering cecal lies just posterior to the umbilicus. The colon is otherwise unremarkable. There is non-visualization of the appendix. Normal abdominal aorta. Normal inferior vena cava. Normal retroperitoneum. Normal urinary bladder. Normal uterus. There is a collapsing cyst in right ovary. Normal left ovary. There is no pelvic lymphadenopathy or mass. No free air or free fluid is seen within the peritoneal cavity. Normal abdominal wall. Normal osseous structures. CT/Abdomen/Pelvis W IV Cont ONLY IMPRESSION: 1. Bilateral nonobstructing renal calculi. There is no evidence of renal, ureteral or urinary bladder abnormality. There is resolution of a left hydronephrosis and ureterectasis seen on the previous study. 2. Stable hepatomegaly with fatty infiltration. 3. Collapsing right ovarian cyst not visualized on the previous study. 4. No other major change in findings. Electronically Signed: Jose Isaac DO at 16:55 EDT Tel [phone], Service support ,
--- NOTE | 2019-11-26 16:15 | ED.DCSUM_ITS ---
History of Present Illness Chief Complaint: Flank Pain Informant: Patient Narrative: Patient is a 39-year-old female who presents to the emergency department for right-sided flank pain that has been present over the past 2 days. This has been constant. She does not know aggravating or relieving factors. She currently rates the pain as an 8 out of 10. The pain does wrap around slightly to the right side of the abdomen. She has been taking Tylenol and ibuprofen [id number] for this without much relief. She has been nauseous and had 2 episodes of vomiting today. She did have a recent diagnosis of pyelonephritis 2 weeks ago and just completed a course of ciprofloxacin. At that time she was noted to have kidney stones. She states she did pass a stone the past week. She denies any hematuria, dysuria or frequency. She denies any change in bowel habits. Previous abdominal surgery for ovarian cystectomy. She denies smoking, drinking or drug use. Past Medical History - Allergies and Home Meds Allergies/Adverse Reactions: Allergies cyclobenzaprine [From Flexeril] Allergy (Intermediate, Verified 11/13/19 10:26) Hives gabapentin Allergy (Intermediate, Verified 11/13/19 10:26) Hives meperidine [From Demerol] Allergy (Intermediate, Verified 11/13/19 10:26) passes out Penicillins Allergy (Verified 11/13/19 10:26) Hives tramadol Allergy (Verified 11/13/19 10:26) Hives Primary Care Physician: Ricky Shelton MD [Primary Care Provider] - 2 Days Surgical History: - - Knee surgery Smoking Status: Never smoker Review of Systems All systems negative except as indicated General: Reports: Sweats. Denies: Fever Eyes: Denies: Visual changes - bilaterally, Diplopia ENT: Denies: Rhinorrhea, Sore throat Cardiovascular: Denies: Chest pain, Palpitations Respiratory: Denies: Dyspnea, Cough, Dyspnea on exertion Gastrointestinal: Reports: Nausea, Vomiting. Denies: Abdominal pain, Diarrhea, Melena, Hematochezia Genitourinary: Denies: Dysuria, Hematuria, Frequency Musculoskeletal: Reports: Back pain - Right flank. Denies: Extremity Pain Skin: Denies: Rash, Wounds Neurological: Denies: Headache, Weakness, Numbness Physical Exam Vital Signs/Narrative: Vital Signs Temp Pulse Resp BP Pulse Ox 11/26/19 16:00 98.1 F 89 16 128/76 H 94 Inital Vital Signs reviewed: Yes General: Well nourished, Well developed, No Acute Distress Head: Normocephalic, Atraumatic Eyes: Perrl, EOMI ENT: Moist mucous membranes, No rhinorrhea Neck: Supple, Nontender Cardiovascular: Regular rate, Regular rhythm, No murmurs Respiratory: No distress, CTA bilaterally, Chest nontender Abdomen: Soft, Nontender, Nondistended, Normal bowel sounds Back: Nontender, Normal Inspection, CVA tenderness - Right-sided. Negative for: Spinal tenderness Extremities: Nontender, No edema Skin: Normal color, No rash Neurological: Alert, Oriented x3, Cranial nerves II-XII grossly intact, Normal Strength, Normal Sensation Psychological: Normal affect, Normal Mood Diagnostic/Tx/Re-eval - Medical Decision Making Patient presents emerge department for right-sided flank pain. She was recently treated for pyelonephritis of the left side. Upon arrival to the emerge department vital signs within normal limits. She is afebrile. We will treat her symptomatically with Toradol and Zofran. Will obtain basic lab work given the fact she could still have a pyelonephritis. Will do CT scan to evaluate for infected stone as she does have a history of kidney stones as well. CT scan showed resolution of the hydronephrosis on the left side. Right side does not show any stranding around the right kidney or obstructing stone. Urine does not show any obvious evidence of UTI but culture will be sent. Vital signs have been stable throughout ED stay. She is feeling slightly better after Toradol treatment. Lab work did not reveal any significant acute abnormality. White blood cell count within normal limits. No significant elevation of creatinine. At this time will discharge home in stable condition. Patient is requesting a work excuse and will be provided one for today. She is to follow- up with her PCP. If she develops any worsening symptoms or develops any fever/chills or inability to keep down any fluids she is to return to the emergency department. She understands and is agreeable with this plan. ED Disposition - Plan for ED Patient: Disposition: Home or Assisted Living Diagnosis: Flank pain Instructions: ED Flank Pain Uncertain Cause Referrals: Ricky Shelton MD [Primary Care Provider] - 2 Days
[2019-11-26] MEDS: Ondansetron 4 MG/2 ML Vial IV (16:24)
[2019-11-26] MEDS: Ketorolac 30 MG/ML Syringe IV (16:24)
[2019-11-26 16:32] LABS: Mucous, Urine 0 SEEN /hpf (<or=2+); Red Blood Cells-Urine 0 SEEN /hpf (0-5)
[2019-11-26 16:38] LABS: Color, Urine Yellow (Yellow); Glucose, Dipstick Normal (Normal); Ketone-Dipstick Negative (Negative); Leukocyte Esterase-Dipstick 500 /ul (Negative); Nitrite-Dipstick Negative (Negative); Occult Blood-Urine 10 /ul (Negative); Protein-Dipstick 100 mg/dl (Negative); Specific Gravity, Urine 1.015 (1.002-1.030); Urine Bilirubin Dipstick Negative (Negative); Urine Clarity Sl. Cloudy (Clear); Urine Urobilinogen Normal (Normal)
[2019-11-26 16:40] LABS: Absolute Lymphocyte Count 2.57 X10^3/uL (0.83-4.51); Absolute Neutrophil Count 6.5 X10^3/uL (2.0-7.7); Basophil# 0.06 X10^3/uL; Basophil% 0.6 % (0-1); Hematocrit 39.7 % (37-47); Lymphocyte # 2.57 X10^3/ul (4.0); Lymphocyte % 25.8 % (19-41); Mean Corp Hgb Conc 32.7 g/dL (32-36); Mean Corpuscular Hgb 30.4 pg (27.0-32.0); Mean Platelet Vol. 9.7 fl (6.2-12.0); NRBC Flagged by Analyzer 0 % (0-5); Neutrophil # 6.52 X10^3/uL (2.7-7.7); Neutrophil % 65.5 % (47-70); Platelet Count 481 K/mm3 (150-450); RBC Distribution Width SD 43.3 fl (35.1-43.9); Red Blood Count 4.27 M/mm3 (4.2-5.4)
[2019-11-26 16:48] LABS: Bacteria RARE /hpf (None Seen); Squamous Epithelial Cells - UA 10-25 SEEN /hpf (5-10); White Blood Cells 10-25 SEEN /hpf (0-5)
[2019-11-26 16:58] LABS: ALB/GLOB Ratio 0.9 RATIO (0.9-2.4); AST(SGOT) 35 U/L (15-37); Alanine Aminotransfer ALT/SGPT 42 U/L (13-56); Alkaline Phosphatase 57 U/L (45-117); Anion Gap 4 (5-15); BUN 14 mg/dL (7-18); BUN/Creat Ratio 20.3 RATIO (10-20); Calcium,Total 9.2 mg/dL (8.5-10.1); Chloride 107 mmol/L (98-107); Creatinine, Serum 0.69 mg/dL (0.55-1.02); EST Glomerular Filtration Rate 102 mL/min (>60); Est Glom Filt Rate - Afr Amer 123 mL/min (>60); Estimated Creatinine Clearance 84.24 ml/min; Globulin 4.5 g/dL (2.2-4.2); Glucose 168 mg/dL (74-106); Lipase 174 U/L (73-393); Potassium 4.2 mmol/L (3.5-5.1); Protein, Total 8.5 g/dL (6.4-8.2); Sodium Level 138 mmol/L (136-145)
== END 2019-11-26 17:17 | disposition home or self-care (01) ==
PROVIDERS: Emergency Provider Emergency Medicine; PCP Family Medicine
DX: N20.0 Calculus of kidney (principal); Z87.442 Personal history of urinary calculi
CPT/HCPCS: 74177; 80053; 81001; 83690; 85025; 87086; 87088; 96374; 96375; 99283; Q9967; A4216; J2405

== ENCOUNTER → 2020-01-07 17:01 | Outpatient (CLI) | payer OTHER, SELFPAY | PROVIDERS: PCP Family Medicine; Referring Provider Registered Nurse; Visit Provider Registered Nurse | DX: Z20.828 Contact with and (suspected) exposure to other viral communicable diseases (principal) | CPT/HCPCS: 87635; C9803; U0003 ==

== ENCOUNTER 2020-04-12 08:06 | Inpatient (IN) | payer OTHER, SELFPAY ==
[2020-04-12] VITALS (14 sets, daily range): BP systolic 107–145; BP diastolic 59–100; PULSE 74–100; RESP 18–20; TEMP 36.3–36.9; O2SAT 92–99; BMI 38.1; BMI 39.7; BMI 39.8
--- NOTE | 2020-04-12 08:20 | RAD_ITS ---
STUDY: X-RAY CHEST REASON FOR EXAM: Female, 39 years old. DYSPNEA, COUGH, EDEMA LEFT LEG TECHNIQUE: Single AP portable view of the chest. COMPARISON: June 20, 2019. FINDINGS: There is mild interstitial accentuation of the lower lungs. There is no demonstrated pleural abnormality. There is mild cardiac enlargement. Normal mediastinum and melisa. Normal visualized pulmonary arteries. Normal visualized aortic arch and descending thoracic aorta. Normal visualized thoracic spine. Normal visualized ribs, clavicles, and shoulders. There is no demonstrated abnormality of the visualized soft tissue structures of the upper abdomen. RAD/Chest 1 View (Portable) IMPRESSION: Interstitial edema or early infiltrates. Electronically Signed: Elton Lynne MD at 9:00 EST , Service support ,
--- NOTE | 2020-04-12 08:21 | ED.DCSUM_ITS ---
History of Present Illness Chief Complaint: Edema Informant: Patient Narrative: 39-year-old female presents the emergency department for leg swelling. Patient tells me that she had Covid. Post Covid with her history of asthma she has been continue to have cough and wheezing. She just finished a 5-day burst prednisone course yesterday. She states that 3 days ago she began to have swelling of her right and left leg. She notes the left is greater than the right. She notes continued shortness of breath. States it keeps her up at night. No fevers. She states she does not normally have swelling in her legs. She notes tingling of her feet/toes. - Past Medical History (1) Asthma Status: Chronic (2) SVT (supraventricular tachycardia) Status: Chronic (3) Seizures Status: Chronic Past Medical History - Allergies and Home Meds Allergies/Adverse Reactions: Allergies cyclobenzaprine [From Flexeril] Allergy (Intermediate, Verified 04/12/20 08:09) Hives gabapentin Allergy (Intermediate, Verified 04/12/20 08:09) Hives meperidine [From Demerol] Allergy (Intermediate, Verified 04/12/20 08:09) passes out Penicillins Allergy (Verified 04/12/20 08:09) Hives tramadol Allergy (Verified 04/12/20 08:09) Hives Primary Care Physician: Ricky Shelton MD [Primary Care Provider] - Prior records reviewed: Yes Surgical History: noncontributory, - - Knee surgery Smoking Status: Never smoker Drugs: None - Family History Maternal Family History: Family History (Last Reviewed 04/12/20 @ 10:[address] Mario Patel MD) Mother COPD (chronic obstructive pulmonary disease) Heart disease Father Atrial fibrillation Sister Atrial fibrillation Hypertension Heart disease Other Cancer Review of Systems General: Denies: Chills, Fever, Sweats Eyes: Denies: Visual changes - bilaterally, Diplopia ENT: Denies: Rhinorrhea, Sore throat Cardiovascular: Denies: Chest pain, Palpitations Respiratory: Reports: Dyspnea, Cough. Denies: Dyspnea on exertion Gastrointestinal: Denies: Abdominal pain, Nausea, Vomiting, Diarrhea, Melena, Hematochezia Genitourinary: Denies: Dysuria, Hematuria, Frequency Musculoskeletal: Reports: Swelling, Extremity Pain. Denies: Back pain Skin: Denies: Rash, Wounds Neurological: Reports: Parasthesia. Denies: Headache, Weakness, Numbness Physical Exam Vital Signs/Narrative: Vital Signs Temp Pulse Resp BP Pulse Ox 04/12/20 08:07 97.3 F L 86 20 H 145/100 H 94 Inital Vital Signs reviewed: Yes General: Well nourished, Well developed, Obese, No Acute Distress Head: Normocephalic, Atraumatic Eyes: Perrl, EOMI ENT: Moist mucous membranes, No rhinorrhea Neck: Supple, Nontender Cardiovascular: Regular rate, Regular rhythm, No murmurs Respiratory: No distress, Chest nontender, Rales Abdomen: Soft, Nontender, Nondistended, Normal bowel sounds Back: Nontender, Normal Inspection Extremities: - - Bilateral pitting edema (pretibial) left greater than right. Well-healed surgical scar of the anterior right knee. No swelling above the knees. Skin: Normal color, No rash Neurological: Alert, Oriented x3, Cranial nerves II-XII grossly intact, Normal Strength, Normal Sensation Psychological: Normal affect, Normal Mood Diagnostic/Tx/Re-eval Clinical Impression(s) from Imaging Studies Chest X-Ray 04/12/20 08:20 IMPRESSION: Interstitial edema or early infiltrates. Electronically Signed: Elton Lynne MD at 9:00 EST , Service support , Laboratory Last Values WBC 7.9 K/mm3 (4.4-11.0) 04/12/20 08:30 RBC 3.52 M/mm3 (4.2-5.4) L 04/12/20 08:30 Hgb 10.5 g/dL (12.0-15.0) L 04/12/20 08:30 Hct 35.2 % (37-47) L 04/12/20 08:30 MCV 100.0 fL (81-99) H 04/12/20 08:30 MCH 29.8 pg (27.0-32.0) 04/12/20 08:30 MCHC 29.8 g/dL (32-36) L 04/12/20 08:30 RDW Std Deviation 49.4 fl (35.1-43.9) H 04/12/20 08:30 RDW Coeff of Yoni 13.6 % (11.6-14.6) 04/12/20 08:30 Plt Count 371 K/mm3 (150-450) 04/12/20 08:30 MPV 9.5 fl (6.2-12.0) 04/12/20 08:30 Immature Gran % (Auto) 2.100 % (0.0-0.9) H 04/12/20 08:30 Neut % (Auto) 55.4 % (47-70) 04/12/20 08:30 Lymph % (Auto) 33.2 % (19-41) 04/12/20 08:30 [place] % (Auto) 7.4 % (0-10) 04/12/20 08:30 Eos % (Auto) 1.1 % (0-5) 04/12/20 08:30 Baso % (Auto) 0.8 % (0-1) 04/12/20 08:30 Absolute Neuts (auto) 4.4 X10^3/uL (2.0-7.7) 04/12/20 08:30 Absolute Lymphs (auto) 2.63 X10^3/uL (0.83-4.51) 04/12/20 08:30 Nucleated RBC % 0.3 % (0-5) 04/12/20 08:30 Sodium 142 mmol/L (136-145) 04/12/20 08:30 Potassium 4.0 mmol/L (3.5-5.1) 04/12/20 08:30 Chloride 107 mmol/L (98-107) 04/12/20 08:30 Carbon Dioxide 30.0 mmol/L (21.0-32.0) 04/12/20 08:30 Anion Gap 5 (5-15) 04/12/20 08:30 BUN 13 mg/dL (7-18) 04/12/20 08:30 Creatinine 0.75 mg/dL (0.55-1.02) 04/12/20 08:30 Estim Creat Clear Calc 77.50 ml/min 04/12/20 08:30 Est GFR (MDRD) Af Amer 112 mL/min (>60) 04/12/20 08:30 Est GFR (MDRD) Non-Af 92 mL/min (>60) 04/12/20 08:30 BUN/Creatinine Ratio 17.4 RATIO (10-20) 04/12/20 08:30 Glucose 146 mg/dL (74-106) H 04/12/20 08:30 Calcium 8.3 mg/dL (8.5-10.1) L 04/12/20 08:30 Total Bilirubin 0.40 mg/dL (0.20-1.00) 04/12/20 08:30 AST 42 U/L (15-37) H 04/12/20 08:30 ALT 53 U/L (13-56) 04/12/20 08:30 Alkaline Phosphatase 54 U/L (45-117) 04/12/20 08:30 Troponin I < 0.015 ng/mL (<0.045) 04/12/20 08:30 B-Natriuretic Peptide 465.1 pg/mL (0-100) H 04/12/20 08:30 Total Protein 7.1 g/dL (6.4-8.2) 04/12/20 08:30 Albumin 3.3 g/dL (3.2-5.0) 04/12/20 08:30 Globulin 3.8 g/dL (2.2-4.2) 04/12/20 08:30 Albumin/Globulin Ratio 0.9 RATIO (0.9-2.4) 04/12/20 08:30 - EKG Initial EKG Interpretation: Sinus Rhythm - EKG demonstrates a normal sinus rhythm at a rate of 79. No concerning features of ACS or ectopy. - Medical Decision Making Patient has lower extremity edema, Rales on lung auscultation, and elevated beta natruretic peptide. My interpretation of the single view portable chest x-ray is vascular congestion. Duplex ultrasound is negative for DVT. I got the patient up and ambulated her. Her heart rate goes to 160, oxygen saturation goes to the mid 80s, and she becomes dyspneic. I spoke with our on-call meter tester primary Dr. Lee. I think the patient would benefit from inpatient diuresis and echocardiogram. I will contact our hospitalist. ED Disposition - Plan for ED Patient: Disposition: Acute Care Hospital [facility] Diagnosis: CHF (congestive heart failure) Referrals: Ricky Shelton MD [Primary Care Provider] -
--- NOTE | 2020-04-12 08:21 | EKG12_ITS ---
Test Reason : EDEMA Blood Pressure : / mmHG Vent. Rate : 079 BPM Atrial Rate : 079 BPM P-R Int : 154 ms QRS Dur : 068 ms QT Int : 406 ms P-R-T Axes : 035 019 035 degrees QTc Int : 465 ms Normal sinus rhythm Normal ECG Confirmed by DOLLY TAVERAS, GIOVANY ([id number]), assistant editor ARELI CASANOVA ([id number]) on 04/15/2020 11:05:37 AM Referred By: SHEN Confirmed By:GIOVANY ALBERTO MD
--- NOTE | 2020-04-12 08:24 | VDLE_ITS ---
Reason For Study: LLE swelling Procedure LEFT This is a venous duplex using B-mode, color GSV is normal. flow and spectral Doppler. CFV is compressible, spontaneous, phasic, Exam performed portable in ED. competent, and demonstrates normal The study was technically difficult. augmentation. Due to body habitus. FV is compressible, spontaneous, phasic, A preliminary report was called and/or faxed competent and demonstrates normal to Dr. Ratliff @ 10:15 am. augmentation. POP V is compressible, spontaneous, phasic, competent and demonstrates normal augmentation. T/P Trunk is compressible. PTV is compressible. LT PerV is compressible. Interpretation Summary Deep veins of the left lower extremity are patent and compressible segmentally. There is no evidence of left lower extremity deep vein thrombosis. Valvular competence appears intact within the proximal deep venous system on the left . The left great saphenous vein appears patent and compressible segmentally. Ordering Physician: Tha Ratliff Referring Physician: Ricky Shelton Performed By: Fartun Sosa, LOBO, RVT
[2020-04-12 08:38] LABS: Absolute Lymphocyte Count 2.63 X10^3/uL (0.83-4.51); Absolute Neutrophil Count 4.4 X10^3/uL (2.0-7.7); Basophil# 0.06 X10^3/uL; Basophil% 0.8 % (0-1); Eosinophil# 0.09 X10^3/uL; Eosinophils% 1.1 % (0-5); Hematocrit 35.2 % (37-47); Hemoglobin 10.5 g/dL (12.0-15.0); Lymphocyte # 2.63 X10^3/ul (4.0); Lymphocyte % 33.2 % (19-41); Mean Corp Hgb Conc 29.8 g/dL (32-36); Mean Corpuscular Hgb 29.8 pg (27.0-32.0); Mean Platelet Vol. 9.5 fl (6.2-12.0); Monocyte# 0.59 X10^3/uL; Monocyte% 7.4 % (0-10); NRBC Flagged by Analyzer 0.3 % (0-5); Neutrophil # 4.39 X10^3/uL (2.7-7.7); Neutrophil % 55.4 % (47-70); Platelet Count 371 K/mm3 (150-450); RBC Distribution Width CV 13.6 % (11.6-14.6); RBC Distribution Width SD 49.4 fl (35.1-43.9); Red Blood Count 3.52 M/mm3 (4.2-5.4); White Blood Count 7.9 K/mm3 (4.4-11.0)
[2020-04-12] MEDS: Acetaminophen 500 MG Tablet 1000 MG PO (08:39)
[2020-04-12 08:51] LABS: BNP,B-Type NATRIURETIC PEPTIDE 465.1 pg/mL (0-100)
[2020-04-12 08:55] LABS: ALB/GLOB Ratio 0.9 RATIO (0.9-2.4); AST(SGOT) 42 U/L (15-37); Alanine Aminotransfer ALT/SGPT 53 U/L (13-56); Albumin, Serum 3.3 g/dL (3.2-5.0); Alkaline Phosphatase 54 U/L (45-117); Anion Gap 5 (5-15); BUN 13 mg/dL (7-18); BUN/Creat Ratio 17.4 RATIO (10-20); Calcium,Total 8.3 mg/dL (8.5-10.1); Chloride 107 mmol/L (98-107); Creatinine, Serum 0.75 mg/dL (0.55-1.02); EST Glomerular Filtration Rate 92 mL/min (>60); Est Glom Filt Rate - Afr Amer 112 mL/min (>60); Globulin 3.8 g/dL (2.2-4.2); Glucose 146 mg/dL (74-106); Protein, Total 7.1 g/dL (6.4-8.2); Sodium Level 142 mmol/L (136-145)
[2020-04-12] MEDS: Furosemide 100 MG/10 ML Vial 80 MG IV (09:15)
--- NOTE | 2020-04-12 10:07 | NURSING ---
DR GAGE GOTTI
--- NOTE | 2020-04-12 10:13 | CT_ITS ---
STUDY: CTA CHEST REASON FOR EXAM: Female, 39 years old. BILAT LEG SWELLING-LEFT WORSE THAN RIGHT -- +COVID 02/2020--STILL HAS COUGH,WHEEZING,SHORT OF BREATH -- FINISHED 5 DAYS OF PREDNISONE -- HX-ASTHMA RADIATION DOSAGE (If Supplied By Facility): CTDIvol = ( 12.66 ) mGy, DLP = ( 497.40 ) mGycm TECHNIQUE: The examination was performed with the intravenous administration of IV 100mL Isovue-370. Post-processing of the angiographic images was performed, with multiplanar reformation and 3D reconstruction. Individualized dose optimization techniques were used for this CT. COMPARISON: Chest x-ray April 12, 2020. Chest CT November 15, 2010 FINDINGS: Normal enhancement of the main pulmonary artery and right and left pulmonary arteries. Normal enhancement of the bilateral peripheral pulmonary arteries. There is no demonstrated pulmonary embolism. Normal thoracic aorta and visualized great vessels. There is no demonstrated aortic dissection. Normal heart and pericardium. Normal mediastinum. Normal hilar regions. Normal visualized trachea and bronchi. The lungs are well expanded. There are mildly increased diffuse interstitial septal and groundglass parenchymal markings. Normal pleura. Normal chest wall structures. Normal osseous structures. There is hepatomegaly with diffuse hepatic enlargement. CT/CTA Chest W/WO Contrast IMPRESSION: CTA chest examination, without a demonstrated pulmonary embolism or arterial dissection. Bilateral pneumonia or edema. Hepatomegaly. Electronically Signed: Elton Lynne MD at 11:18 EST , Service support ,
--- NOTE | 2020-04-12 10:27 | PCM.HP.STD ---
Problem List (1) Dyspnea Status: Acute (2) CHF (congestive heart failure) Status: Chronic (3) Chest tightness Status: Ruled-out (4) Asthma Status: Chronic Qualifiers: Asthma severity: unspecified severity Asthma persistence: unspecified Asthma complication type: unspecified Qualified Code(s): J45.909 - Unspecified asthma, uncomplicated (5) SVT (supraventricular tachycardia) Status: Chronic (6) Seizures Status: Chronic History of Present Illness Date of Admission: 04/12/20 Chief Complaint: Shortness of breath The patient is a 39 year old F with past medical history significant for recently diagnosed COVID-19 on 02/24/2020 who was managed at home presented to the emergency department with shortness of breath and persistent cough as well as swelling involving the left lower extremity. Patient reports increasing shortness of breath since her diagnosis. She had apparently attributed her symptoms to her underlying asthma. Presented to the emergency department as a result of worsening symptoms. Decision was made to admit patient for subsequent evaluation and management Past Medical History Past Medical History (Chronic Problems): Chronic Problems (Last Reviewed 04/12/20 @ 10:[address] Mario Patel MD) CHF (congestive heart failure) (Chronic) Asthma (Chronic) SVT (supraventricular tachycardia) (Chronic) Seizures (Chronic) Medical History: Medical History (Last Reviewed 04/12/20 @ 10:[address] Mario Patel MD) Asthma (Chronic) J45.909 SVT (supraventricular tachycardia) (Chronic) I47.1 Seizures (Chronic) R56.9 Asthma J45.909 Migraines G43.909 SOB (shortness of breath) R06.02 Back pain M54.9 Fatigue R53.83 Knee pain M25.569 Shoulder pain M25.519 Allergies cyclobenzaprine [From Flexeril] Allergy (Intermediate, Verified 04/12/20 08:09) Hives gabapentin Allergy (Intermediate, Verified 04/12/20 08:09) Hives meperidine [From Demerol] Allergy (Intermediate, Verified 04/12/20 08:09) passes out Penicillins Allergy (Verified 04/12/20 08:09) Hives tramadol Allergy (Verified 04/12/20 08:09) Hives Home Medications: Ambulatory Orders Medication Instructions Recorded Albuterol Inhaler [Ventolin Hfa] 2 puff INHALATION Q6H PRN PRN 06/28/13 Multivitamins,Ther W-Minerals 1 tab PO DAILY 06/28/13 [Multivitamin With Minerals (BKC)] diazepam 5 mg tablet 5 mg PO BID PRN PRN 03/27/19 Metformin HCl 500 mg PO BID #60 tab 06/20/19 albuterol sulfate 2.5 mg INHALATION Q4H PRN 06/26/19 ascorbic acid (vitamin C) 500 mg 500 mg PO DAILY 06/26/19 tablet levetiracetam 250 mg tablet 750 mg PO BID tab 06/26/19 zolpidem 10 mg tablet 10 mg PO QHS PRN 06/26/19 atorvastatin 40 mg tablet 40 mg PO QHS 07/02/19 metoprolol tartrate 100 mg tablet 150 mg PO BID #60 tab 09/04/19 verapamil 120 mg 24 hr 120 mg PO DAILY #90 cap 10/11/19 capsule,extended release Ciprofloxacin [Cipro] 500 mg PO BID #14 tab 11/13/19 Surgical History: Surgical History (Last Reviewed 04/12/20 @ 10:[address] Mario Patel MD) History of arthroscopy of left knee Onset Date: ~2002 Z98.890 History of foot surgery Onset Date: ~1992 Z98.890 right History of knee surgery Onset Date: ~2003 Z98.890 Left knee osteotomy History of ovarian cystectomy Onset Date: ~2008 Z98.890, Z87.42 Surgical History: noncontributory, - - Knee surgery Smoking Status: Never smoker Drugs: None - *Family History Maternal Family History: Family History (Last Reviewed 04/12/20 @ 10:[address] Mario Patel MD) Mother COPD (chronic obstructive pulmonary disease) Heart disease Father Atrial fibrillation Sister Atrial fibrillation Hypertension Heart disease Other Cancer Review of Systems Constitutional: Denies: Anorexia, Chills, Fever, Night Sweats, Weight Change HEENT: Denies: Head Aches, Sinus Congestion, Sinus Drainage Cardiovascular: Reports: Edema. Denies: Chest Pain, Orthopnea, Palpitations, Paroxysmal Noc. Dyspnea Respiratory: Reports: Cough, Shortness of Breath, Shortness of breath at rest, Shortness of breath upon exertion Gastrointestinal: Denies: Abdominal Pain, Hematemesis, Hematochezia, Nausea, Melena, Vomiting Genitourinary: Denies: Dysuria, Frequency, Hematuria, Urgency Musculoskeletal: Denies: Joint Pain, Joint Tenderness Skin: Denies: Rash Neurological: Denies: Focal weakness, Numbness, Tingling Psychiatric: Denies: Homicidal Ideations, Suicidal Ideations Hematologic/ Lymphatic: Denies: Easy Bruising, Easy Bleeding VTE Information - Inpt Only VTE Present on Admission: No VTE Mechan Device Prophylaxis: None VTE Pharm Prophylaxis ordered?: Yes Patient Problems: Active and Suspected Problems (Last Reviewed 04/12/20 @ 10:[address] Mario Patel MD) Dyspnea (Acute) Objective: GENERAL: cooperative HEENT: Atraumatic; EYES; Anicteric, Normal Conjunctiva NECK; supple, normal thyroid, RESPIRATORY: Diminished to auscultation CARDIOVASCULAR: Regular S1 S2, GI: soft, normoactive bowel sounds, : No Renal angle tenderness; EXTREMITIES: Swelling involving the left lower extremity, no clubbing, MUSCULOSKELETAL: no muscle waisting NEURO: Awake; no lateralizing signs. SKIN: No Rash PSYCH; Flat affect - Physical Exam Vitals/I&O's: Vital Signs Temp Pulse Resp BP Pulse Ox 97.3 F L 86 20 H 145/100 H 94 04/12/20 08:07 04/12/20 08:07 04/12/20 08:07 04/12/20 08:07 04/12/20 08:07 Oxygen Delivery Method Room Air Weight: 91.6 kg Body Mass Index (BMI) 38.1 Laboratory Results 04/12/20 08:30: WBC 7.9, RBC 3.52 L, Hgb 10.5 L, Hct 35.2 L, MCV 100.0 H, MCH 29.8, MCHC 29.8 L, RDW Std Deviation 49.4 H, RDW Coeff of Yoni 13.6, Plt Count 371, MPV 9.5, Immature Gran % (Auto) 2.100 H, Neut % (Auto) 55.4, Lymph % (Auto) 33.2, [place] % (Auto) 7.4, Eos % (Auto) 1.1, Baso % (Auto) 0.8, Absolute Neuts (auto) 4.4, Absolute Lymphs (auto) 2.63, Nucleated RBC % 0.3 04/12/20 08:30: Sodium 142, Potassium 4.0, Chloride 107, Carbon Dioxide 30.0, Anion Gap 5, BUN 13, Creatinine 0.75, Estim Creat Clear Calc 77.50, Est GFR (MDRD) Af Amer 112, Est GFR (MDRD) Non-Af 92, BUN/Creatinine Ratio 17.4, Glucose 146 H, Calcium 8.3 L, Total Bilirubin 0.40, AST 42 H, ALT 53, Alkaline Phosphatase 54, Troponin I < 0.015, Total Protein 7.1, Albumin 3.3, Globulin 3.8, Albumin/Globulin Ratio 0.9 04/12/20 08:30: B-Natriuretic Peptide 465.1 H Assessment/Plan All Active Problems (Last Reviewed 04/12/20 @ 10:[address] Mario Patel MD) Dyspnea (Acute) Chest tightness (Ruled-out) Patient is a 39-year-old lady diagnosed with COVID-19 on 03/16/2020 who sent with progressive shortness of breath as well as bilateral lower extremity swelling 1. Acute dyspnea -Patient recently diagnosed with COVID-19 on 03/15/2020 presented with progressive shortness of breath. As part of patient's management ordered D-dimer bilateral venous duplex as well as CTA to rule out VTE. Admitted to monitored bed for subsequent management did initiate aerosol treatment 2. History of congestive heart failure ?EF unknown repeat echo ordered patient presentation currently not consistent with CHF exacerbation 3. History of moderate intermittent asthma ?Admitted to monitored bed aerosol treatments as needed ordered 4. History of SVT -Patient is on beta-blockers did continue 5. Dyslipidemia -Patient is on statin therapy, continued at home dose 6. Seizure disorder ?Patient is on Keppra did continue with home dose 7. Morbid obesity - With a BMI of 38.2 patient was counseled on weight reduction 8. DVT prophylaxis -Patient placed on Lovenox 40 mg SC daily pending results of her CAT scan OBSV E&M: 20532 Initial observation care L3
[2020-04-12 10:42] LABS: D-Dimer Quantitative (DVT/PE) 0.39 FEU/ug/m (0.27-0.49)
--- NOTE | 2020-04-12 11:00 | NURSING ---
PCU CHF KITTOE
--- NOTE | 2020-04-12 12:53 | ECHOCS_ITS ---
Reason For Study: CHF Procedure This was a 2D Doppler, Color Flow transthoracic echocardiogram. Technically difficult study due to patients body habitus. Contrast injection performed. The study was technically difficult. Contrast injection was performed. Exam performed portable in patient room. Left Ventricle Normal LV size. Left ventricular systolic function is normal. The estimated ejection fraction is 65 %. No evidence for diastolic dysfunction. No regional wall motion abnormalities noted. Right Ventricle Normal RV size. Normal systolic function. Atria Normal left atrium. Normal right atrium. No doppler evidence for ASD. Mitral Valve There is no mitral annular calcification. Normal mitral valve. Trivial mitral valve insufficiency. Tricuspid Valve Normal tricuspid valve. Trivial tricuspid valve insufficiency. Unable to estimate RV systolic pressure/pulmonary artery pressure due to technically difficult study. Aortic Valve Trisinus/trileaflet aortic valve. Mild focal aortic valve thickening. Pulmonic Valve The pulmonic valve is not well visualized. Great Vessels The aortic root is not well visualized. Pericardium/Pleural No pericardial effusion. Medication Diluted definity 4ml given slow IV push to enhance endocardial definition. MMode/2D Measurements & Calculations LVIDd: 5.3 cm IVSd: 0.99 cm LA dimension: 3.9 cm LVIDs: 3.1 cm LVPWd: 0.92 cm RVDd: 3.2 cm FS: 41.6 % LAV(MOD-bp): 39.5 ml LA A4 area: 17.8 cm2 RA A4 area: 16.3 cm2 LAV(MOD-bp) Indexed: 20.5 ml/m2 LAV(MOD-sp2): 31.7 ml LAV(MOD-sp4): 49.6 ml Time Measurements MV dec time: 0.24 sec Doppler Measurements & Calculations MV E max ambrosio: 96.5 cm/sec Lat Peak E' Ambrosio: 16.7 cm/sec Med Peak E' Ambrosio: 9.3 cm/sec MV A max ambrosio: 73.0 cm/sec E/E' lat: 5.8 E/E' med: 10.4 MV E/A: 1.3 MV V2 max: 104.9 cm/sec MV P1/2t max ambrosio: 104.2 cm/sec Ao V2 max: 158.8 cm/sec MV max P.4 mmHg MV P1/2t: 55.7 msec Ao max P.1 mmHg MV V2 mean: 63.4 cm/sec MV dec slope: 547.6 cm/sec2 MV mean P.9 mmHg MV V2 VTI: 21.1 cm MVA(P1/2t): 3.9 cm2 LV V1 max: 160.0 cm/sec PA V2 max: 122.3 cm/sec LV V1 max P.2 mmHg Interpretation Summary The study was technically difficult. Contrast injection was performed. Left ventricular systolic function is normal. The estimated ejection fraction is 65 %. Trivial mitral valve insufficiency. Trivial tricuspid valve insufficiency. Mild focal aortic valve thickening. Unable to estimate RV systolic pressure/pulmonary artery pressure due to technically difficult study. No evidence for diastolic dysfunction. Ordering Physician: Mario Patel Referring Physician: MD Ricky Shelton Performed By: Jose Maria Gloria RCS
--- NOTE | 2020-04-12 13:42 | PCS.PANDOC ---
PANDEMIC DOCUMENTATION INITIATED: Date: 04/12/20 Time: 2014
[2020-04-12 13:50] LABS: Bedside Glucose 115 mg/dL (70-110)
[2020-04-12] MEDS: Albuterol 2.5 MG/3 ML VIAL.NEB. INHALATION ×3 (13:50→23:52)
[2020-04-12] MEDS: Furosemide 40 MG/4 ML Vial IV ×2 (15:06→21:07)
[2020-04-12 17:05] LABS: Bedside Glucose 138 mg/dL (70-110)
[2020-04-12] MEDS: Metoprolol Tartrate 50 MG Tablet 150 MG PO (21:07)
[2020-04-12] MEDS: levETIRAcetam 750 MG Tablet PO (21:07)
[2020-04-12] MEDS: Atorvastatin Calcium 40 MG Tablet PO (21:07)
[2020-04-12 23:15] LABS: Bedside Glucose 149 mg/dL (70-110)
[2020-04-12] MEDS: diazePAM 5 MG Tablet PO (23:17)
[2020-04-12] MEDS: Zolpidem Tartrate 5 MG Tablet 10 MG PO (23:18)
[2020-04-13] VITALS (8 sets, daily range): BP systolic 128–133; BP diastolic 69–72; PULSE 78–94; RESP 16–20; TEMP 36.8; O2SAT 86–98
[2020-04-13] MEDS: Furosemide 40 MG/4 ML Vial IV (05:24)
[2020-04-13] MEDS: Enoxaparin 40 MG/0.4 ML Syringe SC (05:24)
[2020-04-13 05:30] LABS: Absolute Lymphocyte Count 2.39 X10^3/uL (0.83-4.51); Absolute Neutrophil Count 4.5 X10^3/uL (2.0-7.7); Basophil# 0.05 X10^3/uL; Basophil% 0.7 % (0-1); Eosinophil# 0.15 X10^3/uL; Hematocrit 37.5 % (37-47); Hemoglobin 11.4 g/dL (12.0-15.0); Lymphocyte # 2.39 X10^3/ul (4.0); Lymphocyte % 31.6 % (19-41); Mean Corp Hgb Conc 30.4 g/dL (32-36); Mean Corpuscular Hgb 29.9 pg (27.0-32.0); Mean Corpuscular Volume 98.4 fL (81-99); Mean Platelet Vol. 9.9 fl (6.2-12.0); Monocyte# 0.44 X10^3/uL; Monocyte% 5.8 % (0-10); NRBC Flagged by Analyzer 0 % (0-5); Neutrophil # 4.45 X10^3/uL (2.7-7.7); Neutrophil % 58.7 % (47-70); Platelet Count 394 K/mm3 (150-450); RBC Distribution Width CV 13.7 % (11.6-14.6); RBC Distribution Width SD 48.5 fl (35.1-43.9); Red Blood Count 3.81 M/mm3 (4.2-5.4); White Blood Count 7.6 K/mm3 (4.4-11.0)
[2020-04-13 05:47] LABS: Anion Gap 8 (5-15); BUN 16 mg/dL (7-18); BUN/Creat Ratio 21.8 RATIO (10-20); Calcium,Total 8.4 mg/dL (8.5-10.1); Chloride 95 mmol/L (98-107); Creatinine, Serum 0.73 mg/dL (0.55-1.02); EST Glomerular Filtration Rate 95 mL/min (>60); Est Glom Filt Rate - Afr Amer 115 mL/min (>60); Estimated Creatinine Clearance 79.62 ml/min; Glucose 137 mg/dL (74-106); Magnesium 1.6 mg/dL (1.6-2.6); Potassium 3.1 mmol/L (3.5-5.1); Sodium Level 137 mmol/L (136-145)
[2020-04-13] MEDS: Albuterol 2.5 MG/3 ML VIAL.NEB. INHALATION ×2 (06:50→13:51)
[2020-04-13] MEDS: Insulin Lispro 100 UNIT/ML INSULN.PEN SC ×2 (07:00→11:37)
[2020-04-13 07:05] LABS: Bedside Glucose 151 mg/dL (70-110)
[2020-04-13] MEDS: Verapamil SR 240 MG Tablet 120 MG PO (09:01)
[2020-04-13] MEDS: Metoprolol Tartrate 50 MG Tablet 150 MG PO (09:01)
[2020-04-13] MEDS: levETIRAcetam 750 MG Tablet PO (09:02)
--- NOTE | 2020-04-13 09:45 | CASEMGMT ---
KEILA BELL assessment: Face to Face with patient for initial transition planning/care coordination assessment. KEILA BELL introduced self and role at [facility], pt voices understanding and consents to assessment at this time. Pt is sitting up in bed in no distress at this time. Pt is A/Ox 4 at this time and answers all questions appropriately at this time. Pt is currently on RA in no distress at this time. Care providers, pharmacy, and demographics verified at this time. Presentation: Sent by for bilat LE edema, SOB, cough. Pt was + COVID on 03/16/2020 Admitting dx: Dyspnea PCP: Nikita Specialists: Rosa cardio Preferred Pharmacy: [place] Insurance: [employer] Prescription Benefit: [employer] Living Will/HPOA: Pt states does not have LW/HPOA but would like AD info at this time. Pt provided with AD paperwork at this time. LNOK: Tamara Mason, sister Living Arrangements: Pt states lives alone in 1 story home and states no concerns at home at this time. Pt states is independent with ADL's. Transportation: Pt states drives self and states no transportation concerns at this time. DME/HHC: Pt states has a pulse ox, BP cuff, and nebulizer and states no need for any further DME at this time. Pt states she would prefer [facility] for DME company, if needed as they are preferred provider. Pt states no hx of HHC or SNF in the past. Pt states no concerns with going home at time of discharge. 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 Pt states does not smoke cigarettes or drink ETOH. Pt states no further concerns/needs at this time. CM to follow for home oxygen qualifications and any further discharge planning/needs. Advised pt to ask for CM if any further questions/concerns/needs arise, voices understanding. Pt Goal: Home Plan: Home, pending home oxygen qualification. [place] KEILA BELL
--- NOTE | 2020-04-13 10:55 | CASEMGMT ---
Pt does qualify for home oxygen 2L w/ exertion at this time. Pt is aware that [facility] is preferred provider for her [facility] at this time and is agreeable to [facility]. Referral faxed to [facility] at this time and this RN CM to place call to notify of referral. [place] RN CM
[2020-04-13 11:56] LABS: Bedside Glucose 197 mg/dL (70-110)
--- NOTE | 2020-04-13 15:51 | DCINST_ITS ---
- Discharge Diagnoses Current Active Problems: Current Active and Chronic Problems (Last Reviewed 04/12/20 @ 10:[address] Mario Patel MD) CHF (congestive heart failure) (Chronic) Dyspnea (Acute) Asthma (Chronic) SVT (supraventricular tachycardia) (Chronic) Seizures (Chronic) You will use the following diet at home:: Calorie/Carbohydrate Controlled (specify 1200, 1400, etc) - 1400, Fluid restricted (specify 2000 mls, 1500 mls) - 1500 Your food should be the consistency of: Regular Your liquids should be the consistency of: Regular/Thin Discharge Activity: Return to Normal Activity Call your doctor if you observe: Fever of 101 or Higher, Shortness of breath, Dizziness, Fainting spells, Swelling in the ankles, Chest pain, Increased palpitations (irregular heartbeat) Instructions: Heart Failure: Making Changes to Your Diet, Heart Failure: Medications to Help Your Heart, Heart Failure: Tracking Your Weight, What Is Heart Failure?, Pulmonary Hypertension Additional Instructions: Primary care doctor in 3 to 5 days to obtain a BMP to evaluate your kidney function since you are being started on Lasix which is a diuretic that can affect her kidneys. Allergies/Adverse Reactions: Allergies cyclobenzaprine [From Flexeril] Allergy (Intermediate, Verified 04/12/20 08:09) Hives gabapentin Allergy (Intermediate, Verified 04/12/20 08:09) Hives meperidine [From Demerol] Allergy (Intermediate, Verified 04/12/20 08:09) passes out Penicillins Allergy (Verified 04/12/20 08:09) Hives tramadol Allergy (Verified 04/12/20 08:09) Hives Medications to take at Discharge Albuterol Inhaler [Ventolin Hfa] 2 puff INHALATION Q6H PRN PRN 06/28/13 Multivitamins,Ther W-Minerals [Multivitamin With Minerals (BKC)] 1 tab PO DAILY 06/28/13 diazepam 5 mg tablet 5 mg PO BID PRN PRN 03/27/19 ascorbic acid (vitamin C) 500 mg tablet 500 mg PO DAILY 06/26/19 levetiracetam 250 mg tablet 750 mg PO BID tab 06/26/19 zolpidem 10 mg tablet 10 mg PO QHS PRN 06/26/19 atorvastatin 40 mg tablet 40 mg PO QHS 07/02/19 Metformin HCl 500 mg PO BID 04/12/20 Metoprolol Tartrate [Lopressor (beta clinton)] 150 mg PO BID 04/12/20 Verapamil HCl [Verapamil ER] 120 mg PO DAILY 04/12/20 Furosemide 40 mg PO DAILY #30 tab 04/13/20 The following prescriptions were given: Furosemide 40 mg PO DAILY #30 tab Transmission Status: Pending to [facility] Primary Care Physician: Ricky Shelton MD [Primary Care Provider] - Please follow up with your Primary Care Physician in: 3-5 days Test Results: Test results from this visit will be discussed in further detail at your follow- up appointment, if applicable.
--- NOTE | 2020-04-13 18:35 | DS.PCM_ITS ---
Discharge Date and Diagnosis - Problem List Patient Problems: Active and Suspected Problems (Last Reviewed 04/12/20 @ 10:[address] Mario Patel MD) Dyspnea (Acute) Date of Admission: 04/12/20 Date of Discharge: 04/13/20 - Primary Discharge Diagnosis Acute Problems: Active Problems (Last Reviewed 04/12/20 @ 10:[address] Mario Patel MD) Dyspnea (Acute) - Secondary Discharge Diagnosis Chronic Problems: Chronic Problems (Last Reviewed 04/12/20 @ 10:[address] Mario Patel MD) CHF (congestive heart failure) (Chronic) Asthma (Chronic) SVT (supraventricular tachycardia) (Chronic) Seizures (Chronic) Hospital Course and Treatment Imaging Results: Clinical Impression(s) from Imaging Studies Chest X-Ray 04/12/20 08:20 IMPRESSION: Interstitial edema or early infiltrates. Electronically Signed: Elton Lynne MD at 9:00 EST , Service support , Chest CTA 04/12/20 10:13 IMPRESSION: CTA chest examination, without a demonstrated pulmonary embolism or arterial dissection. Bilateral pneumonia or edema. Hepatomegaly. Electronically Signed: Elton Lynne MD at 11:18 EST , Service support , Venous Doppler: Interpretation Summary Deep veins of the left lower extremity are patent and compressible segmentally. There is no evidence of left lower extremity deep vein thrombosis. Valvular competence appears intact within the proximal deep venous system on the left . The left great saphenous vein appears patent and compressible segmentally. Echo: Interpretation Summary The study was technically difficult. Contrast injection was performed. Left ventricular systolic function is normal. The estimated ejection fraction is 65 %. Trivial mitral valve insufficiency. Trivial tricuspid valve insufficiency. Mild focal aortic valve thickening. Unable to estimate RV systolic pressure/pulmonary artery pressure due to technically difficult study. No evidence for diastolic dysfunction. Operations: None Procedures: 2-D Echocardiogram Summary of Care Provided: Per HPI: The patient is a 39 year old F with past medical history significant for recently diagnosed COVID-19 on 02/24/2020 who was managed at home presented to the emergency department with shortness of breath and persistent cough as well as swelling involving the left lower extremity. Patient reports increasing shortness of breath since her diagnosis. She had apparently attributed her symptoms to her underlying asthma. Presented to the emergency department as a result of worsening symptoms. Decision was made to admit patient for subsequent evaluation and management Hospital Course: 1. Acute dyspnea secondary to probable pulmonary hypertension/history of CHF unknown [id number] female who had Covid over a month ago presents back to the hospital with acute dyspnea. Initially thought to be secondary to her underlying asthma however because she recently had Covid she underwent a CTA of the chest which did not demonstrate a PE but it did show interstitial edema consistent with a heart failure pulmonary hypertension picture. She underwent an echocardiogram on the day of discharge which showed a normal EF and no diastolic dysfunction however because of how technically challenging the study was they cannot evaluate for pulmonary hypertension. She was started on 3 times daily Lasix and had excellent diuresis and symptoms completely resolved by the day of discharge with her shortness of breath. She also said that the swelling that was more significant in her left leg had almost completely resolved by the day of discharge, venous Doppler of her left lower extremity was negative for blood clot. Because of this I do feel that she likely had a component of pulmonary hypertension given her body habitus could be secondary to obstructive sleep apnea. I recommend she continue with Lasix daily and follows up with her primary care doctor in 3 to 5 days. If upon follow-up her renal function is stable and she has any more these issues while on Lasix would recommend she follow-up with cardiology. I did discuss with her the plan for discharge today and she expressed understanding of the risk and benefits and would like to go home today. Prior to discharge she did have an ambulatory pulse ox which dem onstrated a need for oxygen with ambulation. She will require 2 L nasal cannula at home. 2. Moderate intermittent asthma, SVT, hyperlipidemia, seizure disorder, morbid obesity are all chronic medical conditions which complicate her care. Her home medications were continued where appropriate Patient Problems: Active and Suspected Problems (Last Reviewed 04/12/20 @ 10:[address] Mario Patel MD) Dyspnea (Acute) - Physical Exam Vitals/I&O's: Vital Signs Temp Pulse Resp BP Pulse Ox 98.2 F 78 20 H 133/69 H 95 04/13/20 10:30 04/13/20 13:51 04/13/20 13:51 04/13/20 10:30 04/13/20 10:34 Oxygen Flow Rate (L/min) [ 2 AMBULATION with Oxygen] Oxygen Flow Rate (L/min) 3 Oxygen Delivery Method Room Air Weight: 210 lb 8.663 oz Body Mass Index (BMI) 39.7 Intake and Output for Last 24 Hours 04/11/20 04/12/20 04/13/20 23:59 23:59 23:59 Intake Total 240 / 290 510 / 510 Output Total 950 / 950 Balance -710 / -660 510 / 510 General: Alert, Oriented x3, Cooperative, No apparent distress HEENT: Atraumatic, PERRLA, EOMI, Normocephalic Oral: Moist Mucosa Neck: Supple, No JVD Lungs: Normal air movement, No rhonchi, No wheeze, No rales, Diminished Cardiovascular: Regular rate, Regular Rhythm, Normal S1, Normal S2, No murmurs Abdomen: Soft, Non Tender, Non-Distended, No Hepato-splenomegaly Extremities: No edema, Capillary Refill Less than 3 Seconds Skin: No rashes, No breakdown Neurological: Neuro grossly intact, Sensory exam intact to light touch and pain Psych/Mental Status: Normal Affect, Appropriate Laboratory Results 04/12/20 18:38: Troponin I < 0.015 04/12/20 21:05: POC Glucose 149 H 04/13/20 04:44: Sodium 137, Potassium 3.1 L, Chloride 95 L, Carbon Dioxide 34.0 H, Anion Gap 8, BUN 16, Creatinine 0.73, Estim Creat Clear Calc 79.62, Est GFR (MDRD) Af Amer 115, Est GFR (MDRD) Non-Af 95, BUN/Creatinine Ratio 21.8 H, Glucose 137 H, Calcium 8.4 L, Magnesium 1.6 04/13/20 04:44: WBC 7.6, RBC 3.81 L, Hgb 11.4 L, Hct 37.5, MCV 98.4, MCH 29.9, MCHC 30.4 L, RDW Std Deviation 48.5 H, RDW Coeff of Yoni 13.7, Plt Count 394, MPV 9.9, Immature Gran % (Auto) 1.200 H, Neut % (Auto) 58.7, Lymph % (Auto) 31.6, [place] % (Auto) 5.8, Eos % (Auto) 2.0, Baso % (Auto) 0.7, Absolute Neuts (auto) 4.5, Absolute Lymphs (auto) 2.39, Nucleated RBC % 0 04/13/20 06:57: POC Glucose 151 H 04/13/20 11:36: POC Glucose 197 H Discharge Activity: Return to Normal Activity Call your doctor if you observe: Fever of 101 or Higher, Shortness of breath, Dizziness, Fainting spells, Swelling in the ankles, Chest pain, Increased palpitations (irregular heartbeat) Home Medications: Medications to take at Discharge Albuterol Inhaler [Ventolin Hfa] 2 puff INHALATION Q6H PRN PRN 06/28/13 Multivitamins,Ther W-Minerals [Multivitamin With Minerals (BKC)] 1 tab PO DAILY 06/28/13 diazepam 5 mg tablet 5 mg PO BID PRN PRN 03/27/19 ascorbic acid (vitamin C) 500 mg tablet 500 mg PO DAILY 06/26/19 levetiracetam 250 mg tablet 750 mg PO BID tab 06/26/19 zolpidem 10 mg tablet 10 mg PO QHS PRN 06/26/19 atorvastatin 40 mg tablet 40 mg PO QHS 07/02/19 Metformin HCl 500 mg PO BID 04/12/20 Metoprolol Tartrate [Lopressor (beta clinton)] 150 mg PO BID 04/12/20 Verapamil HCl [Verapamil ER] 120 mg PO DAILY 04/12/20 Furosemide 40 mg PO DAILY #30 tab 04/13/20 Following Prescriptions Were Given to Patient: Furosemide 40 mg PO DAILY #30 tab Transmission Status: Received by [facility] Primary Care Physician: Ricky Shelton MD [Primary Care Provider] - Please follow up with your Primary Care Physician in: 3-5 days Please Follow Up With: Ricky Shelton MD Patient Instructions: What Is Heart Failure?, Heart Failure: Tracking Your Weight, Heart Failure: Making Changes to Your Diet, Heart Failure: Medications to Help Your Heart, Pulmonary Hypertension Disposition: Home Minutes spent on discharge:: 35 Patient Condition:: Stable Medical Necessity - Tobacco Use Smoking Status: Never smoker Meaningful Use Info Meaningful Use Diagnoses (Choose all that apply): None applicable Inpatient E&M: 02174 Disch Hosp
--- NOTE | 2020-04-14 15:18 | CASEMGMT ---
RN CM Discharge F/U Phone Call LACE: 11 Strata: 3 Discharge date: 04/13/2020 Call date: 04/14/2020 Call time: [phone] Attempted to reach pt without success at this time, message left for pt to call this RN CM if/when able. S[place]en RN CM Admission dx: Dyspnea
== END 2020-04-13 17:13 | disposition home or self-care (01) | DRG 315 ==
LOC: ED 09:54 → PCU 04-13 07:37
PROVIDERS: Admitting Provider Internal Medicine; Emergency Provider Emergency Medicine; PCP Family Medicine; Visit Provider Family Medicine
DX: I27.20 Pulmonary hypertension, unspecified (principal); I47.1 Supraventricular tachycardia; I50.9 Heart failure, unspecified; J45.20 Mild intermittent asthma, uncomplicated; G40.909 Epilepsy, unspecified, not intractable, without status epilepticus; E66.01 Morbid (severe) obesity due to excess calories; Z68.38 Body mass index [BMI] 38.0-38.9, adult; E78.5 Hyperlipidemia, unspecified; Z86.19 Personal history of other infectious and parasitic diseases; Z79.899 Other long term (current) drug therapy; Z23 Encounter for immunization
CPT/HCPCS: 36415; 71045; 71275; 80048; 80053; 82962; 83735; 83880; 84484; 85025; 85379; 93005; 93306; 93971; 94640; 99251; 99284; J7030; Q9957; Q9967; 90686; A4216; C8929; G0463; J1940

== ENCOUNTER 2020-08-05 11:48 | Emergency (ER) | payer OTHER, SELFPAY ==
[2020-04-12 13:05] VITALS: BMI 39.7
[2020-08-05 11:51] VITALS: BP 125/71; PULSE 80; RESP 16; TEMP 35.7; O2SAT 97; BMI 37.0
--- NOTE | 2020-08-05 12:19 | ED.VISSUMM ---
- ER Visit Summary Date of Service: 08/05/20 Chief Complaint: [Left knee pain] History of Present Illness: The patient is a 39 F [presents to the emergency department with pain in her left knee that started yesterday. Patient states that she try to get out of her recliner and felt like her knee twisted and had a sudden onset of pain in it. Patient initially was able to bear some weight but was able to go to work. Patient states that she progressively had more more discomfort made it difficult walk. Patient had a hard time walking to the bathroom last night. Patient states that she had surgery on her left knee 17 years ago. Patient denies any fever or recent illness. She tells me she had COVID-19 in February and has since been vaccinated.] Physical Examination: [HEENT-PERRLA, EOMI. Cranial nerves II through XII grossly intact. TMs clear. Mucous membranes moist. No adenopathy. Cardiovascular-regular rate and rhythm without murmur or ectopy Lungs-clear to auscultation, chest wall stable without crepitus or subcu emphysema Abdomen-normoactive bowel sounds, soft, nontender, no rebound or rigidity, no peritoneal signs. Extremities-intact ?4, normal range of motion, normal pulses. Left knee-patient has an obvious effusion noted. No erythema or warmth noted. Patient has limited range of motion flexion extension secondary to pain. She does not tolerate ligamentous exam. Neurovascularly intact distally.] Test Results: [4 view x-rays of the left knee obtained. Interpreted by myself as degenerative changes with prior fixation of the tibia with screws. Radiology in agreement with interpretation. There were no obvious fractures.] Emergency Department Course and Treatment: [Patient was given knee immobilizer and crutches.] Treatment Plan: [Patient will be given referral to orthopedics for follow-up and a prescription for few [place] for pain.] Patient understands she may require further imaging to evaluate for ligamentous injury. Disposition: [Discharged home in stable condition] Impression: [Left knee sprain-possible internal derangement] This note was generated with [employer] software. It may contain incorrect words, spelling, and punctuation that were not noted in review of the chart prior to signing ED Disposition - Plan for ED Patient: Referrals: Ricky Shelton MD [Primary Care Provider] -
--- NOTE | 2020-08-05 12:25 | RAD_ITS ---
STUDY: X-RAY - LEFT KNEE REASON FOR EXAM: Female, 39 years old. Injury TECHNIQUE: 4 view(s) of the knee. COMPARISON: Comparison is made with prior examination dated 03/18/2012. FINDINGS: Is evidence of a degenerative spur formation along the lateral femoral condyle. Status post screw fixation of the proximal tibia. Normal proximal tibiofibular articulation. Normal medial femorotibial compartment. Normal lateral femorotibial compartment. 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 The soft tissue structures are unremarkable. RAD/Knee 4 or More Views IMPRESSION: Degenerative arthrosis. Status post screw fixation of the proximal tibia. Electronically Signed: Jose Miguel Bone MD at 12:40 EDT , Service support ,
--- NOTE | 2020-08-05 12:57 | DCINST.ED_ITS ---
ED Disposition - Plan for ED Patient: Instructions: ED Meniscal Injury Knee Poss Prescriptions: Hydrocodone Bitart/Apap 5-325 [[place] 5MG-325MG] 1 tablet PO Q4H PRN PRN 2 Days #10 tablet PRN Reason: Pain Transmission Status: Sent to [facility] Referrals: Ricky Shelton MD [Primary Care Provider] - Camden Grewal MD [STAFF PHYSICIAN] - 3-5 Days
== END 2020-08-05 13:50 | disposition home or self-care (01) ==
LOC: ED 12:23
PROVIDERS: Emergency Provider Emergency Medicine; PCP Family Medicine
DX: S83.92XA Sprain of unspecified site of left knee, initial encounter (principal); X50.1XXA Overexertion from prolonged static or awkward postures, initial encounter; Y93.9 Activity, unspecified; Y92.9 Unspecified place or not applicable; I50.9 Heart failure, unspecified; J45.909 Unspecified asthma, uncomplicated; G40.909 Epilepsy, unspecified, not intractable, without status epilepticus; Z86.16 Personal history of COVID-19; Z79.899 Other long term (current) drug therapy
CPT/HCPCS: 73564; 99284

== ENCOUNTER 2020-11-26 08:18 | Emergency (ER) | payer OTHER, SELFPAY ==
[2020-11-26 08:19] VITALS: BP 143/96; PULSE 99; RESP 16; TEMP 36.2; O2SAT 95; BMI 38.3
--- NOTE | 2020-11-26 08:37 | US_ITS ---
EXAM DESCRIPTION: Limited abdomen ultrasound CLINICAL HISTORY: 40 years Female, PAIN COMPARISON: Previous CT scan of the abdomen and pelvis obtained on 11/26/2019 TECHNIQUE: Serial longitudinal and transverse scans of the right upper quadrant were obtained utilizing a real-time sector scanner. FINDINGS: The gallbladder is normal in size and shape. No echogenic structures are noted within the gallbladder which are casting acoustic shadows. The common bile duct measures 3.2 mm., which is normal. The liver is normal. The hepatic veins are patent and hepatopetal flow is noted in the main portal vein. The head, and body of the pancreas were examined and appear to be normal. The tail the pancreas is not seen. The right kidney is normal and measures 12.6 cm. x 4.6 cm. x 3.4 cm. in size with a cortex measuring 1.0 cm in thickness. The right renal parenchyma has a normal echogenic relationship to the adjacent liver. No fluid is noted in Coon''s pouch. US/Gallbladder IMPRESSION: Normal gallbladder ultrasound Electronically Signed: Salomón Huizar DO at 10:11 EDT Tel , Service support ,
--- NOTE | 2020-11-26 08:38 | ED.VIS.GI ---
HPI HPI - GI History of Present Illness Chief Complaint: Abd Pain Informant: patient Narrative Narrative: Patient presents with complaint of right upper quadrant abdominal pain. This started first about a week or week and a half ago after eating a white pizza. She had right upper quadrant abdominal pain that radiated to her posterior right shoulder and around to her right flank. It was associated with nausea and vomiting. The symptoms got better. She has had periods during the week where she does not have pain. However, anytime she eats things other than Jell-O she seems to get the recurrence of pain and will oftentimes get vomiting. She has no chest pain or trouble breathing. No pelvic pain. No urinary symptoms. She has had ovarian cyst but this feels nothing like it. She does have a strong family history of gallbladder disease and her mother and sisters have had gallbladder out at about her age. She denies fevers or chills. Not eating makes this better and eating almost anything makes it worse. [facility] Medical History (Updated 11/26/20 @ 12:[address] Wang Owen MD) Asthma Asthma Back pain Fatigue Knee pain Migraines Seizures Shoulder pain SOB (shortness of breath) SVT (supraventricular tachycardia) Home Medications albuterol sulfate 2 puff INHALATION Q6H PRN PRN 06/28/13 [History Last Taken 09/04/18] multivitamin,ap-[id number]-[id number] 1 tab PO DAILY 06/28/13 [History Last Taken 09/04/18] diazepam 5 mg tablet 5 mg PO BID PRN PRN 03/27/19 [History Last Taken Unknown] ascorbic acid (vitamin C) 500 mg tablet 500 mg PO DAILY 06/26/19 [History Last Taken Unknown] levetiracetam 250 mg tablet 750 mg PO BID tab 06/26/19 [History Last Taken Unknown] zolpidem 10 mg tablet 10 mg PO QHS PRN 06/26/19 [History Last Taken Unknown] atorvastatin 40 mg tablet 40 mg PO QHS 07/02/19 [History Last Taken Unknown] metformin 1,000 mg PO BID 04/12/20 [History Last Taken Unknown] furosemide 40 mg PO DAILY #30 tab 04/13/20 [Rx Last Taken Unknown] metoprolol tartrate 100 mg tablet 150 mg PO BID #90 tab 04/15/20 [Rx Last Taken Unknown] verapamil 120 mg 24 hr capsule,extended release 120 mg PO DAILY #90 capsule 09/25/20 [Rx Last Taken Unknown] ondansetron HCl [Zofran] 4 mg PO Q8H PRN #10 tab 11/26/20 [Rx Last Taken Unknown] oxycodone-acetaminophen [Percocet] 1 tab PO Q6H PRN 3 Days #10 tab 11/26/20 [Rx Last Taken Unknown] Allergy/AdvReac Type Severity Reaction Status Date / Time cyclobenzaprine Allergy Intermediate Hives Verified 11/26/20 08:18 [From Flexeril] gabapentin Allergy Intermediate Hives Verified 11/26/20 08:18 meperidine [From Demerol] Allergy Intermediate passes out Verified 11/26/20 08:18 Penicillins Allergy Hives Verified 11/26/20 08:18 tramadol Allergy Hives Verified 11/26/20 08:33 Family History Mother COPD (chronic obstructive pulmonary disease) Heart disease Father , Age 69 Atrial fibrillation Sister , 36 years Atrial fibrillation Hypertension Heart disease Other Cancer Surgical History History of arthroscopy of left knee (~2002) History of foot surgery (~1992) History of knee surgery (~2003) History of ovarian cystectomy (~2008) Social History Smoking Status: Never smoker alcohol intake: current alcohol intake frequency: holidays/special occasions only Alcohol type: wine substance use type: does not use caffeine: No ROS ROS ED Constitutional Constitutional ED: Denies chills or fever(s) ENT ENT ED: Denies sore throat Cardiovascular Cardiovascular: Denies chest pain or palpitations Respiratory/Chest Respiratory/Chest: Denies cough or dyspnea Gastrointestinal Gastrointestinal: Reports abdominal pain, nausea and vomiting Genitourinary Genitourinary ED: Denies dysuria or hematuria Musculoskeletal Musculoskeletal: Denies arthralgias or myalgias Integumentary Denies rash Neurologic Neurologic: Denies headache(s) Endocrine Endocrinology: Denies polydipsia or polyuria Hematologic/Lymphatic Hematologic/Lymphatic: Denies easy bleeding or easy bruising EXAM Physical Exam Const Vital Signs: 11/26/20 08:19 Temperature 97.1 F L Temperature Source Temporal Pulse Rate 99 Respiratory Rate 16 Blood Pressure 143/96 H Blood Pressure Mean 111 Pulse Ox 95 Oxygen Delivery Method Room Air Positive well nourished, well developed and obese General Appearance ED: well developed and NAD Nutritional Appearance: obese HEENT Reports dry mucous membranes Mouth ED: Yes dry mucous membranes Mouth: dry mucous membranes Resp normal respiratory effort and clear to auscultation bilaterally Cardio regular rate and regular rhythm GI non-distended GI Narrative: Patient does have tenderness toward the right upper quadrant. No guarding. Mildly positive Abreu sign clinically. Obesity does limit exam somewhat. Auscultation: normoactive bowel sounds Palpation: soft and tender Back/Spine no CVA tenderness Neuro Sensorium / Orientation: alert and oriented to person Psych mental status grossly normal Skin Lesions: no lesions Rashes: no rashes MDM MDM MDM Narrative Medical decision making narrative: Patient's blood work showed normal white count hemoglobin. Electrolytes showed no marked abnormalities. She had mild elevation of glucose. Minimal elevations of AST and ALT. Alk phos was normal. Lipase was normal. is negative. Urinalysis was not a clean-catch which shows no acute process. Ultrasound did not show definitive indication of biliary disease. Her symptoms do match this. We did do a CAT scan to make sure there was not a secondary cause. This also did not give a clear indication of problem. Patient is feeling better. Clinically and by her exam and history I believe this is likely biliary colic. She may need an outpatient HIDA scan. We will refer her to surgery. We discussed reasons to return. I did do online prescribing report check. I will write for a few Percocet and Zofran for nausea. Lab Data Attestation: I reviewed the patient's lab results. Labs: Laboratory Results - last 24 hr 11/26/20 11/26/20 11/26/20 08:34 08:34 08:34 WBC 10.6 RBC 4.22 Hgb 12.8 Hct 40.0 MCV 94.8 MCH 30.3 MCHC 32.0 RDW Std Deviation 43.7 RDW Coeff of Yoni 12.6 Plt Count 482 H MPV 9.8 Immature Gran % (Auto) 2.100 H Neut % (Auto) 60.9 Lymph % (Auto) 29.7 [place] % (Auto) 5.4 Eos % (Auto) 1.1 Baso % (Auto) 0.8 Absolute Neuts (auto) 6.5 Absolute Lymphs (auto) 3.16 Nucleated RBC % 0 Sodium 136 Potassium 3.9 Chloride 97 L Carbon Dioxide 28.0 Anion Gap 11 BUN 20 H Creatinine 0.94 Estim Creat Clear Calc 61.23 Est GFR (MDRD) Af Amer 86 Est GFR (MDRD) Non-Af 71 BUN/Creatinine Ratio 21.3 H Glucose 184 H Calcium 9.9 Total Bilirubin 0.20 AST 49 H ALT 62 H Alkaline Phosphatase 65 Total Protein 8.8 H Albumin 3.9 Globulin 4.9 H Albumin/Globulin Ratio 0.8 L Lipase 175 Serum , Qual NEGATIVE Urine Color Urine Clarity Urine pH Ur Specific [place] Urine Protein Urine Glucose (UA) Urine Ketones Urine Occult Blood Urine Nitrite Urine Bilirubin Urine Urobilinogen Ur Leukocyte Esterase Urine RBC Urine WBC Ur Squamous Epith Cells Urine Bacteria Urine Mucus 11/26/20 09:10 WBC RBC Hgb Hct MCV MCH MCHC RDW Std Deviation RDW Coeff of Yoni Plt Count MPV Immature Gran % (Auto) Neut % (Auto) Lymph % (Auto) [place] % (Auto) Eos % (Auto) Baso % (Auto) Absolute Neuts (auto) Absolute Lymphs (auto) Nucleated RBC % Sodium Potassium Chloride Carbon Dioxide Anion Gap BUN Creatinine Estim Creat Clear Calc Est GFR (MDRD) Af Amer Est GFR (MDRD) Non-Af BUN/Creatinine Ratio Glucose Calcium Total Bilirubin AST ALT Alkaline Phosphatase Total Protein Albumin Globulin Albumin/Globulin Ratio Lipase Serum , Qual Urine Color Yellow Urine Clarity Sl. Cloudy Urine pH 6.0 Ur Specific [place] 1.020 Urine Protein 500 H Urine Glucose (UA) Normal Urine Ketones Negative Urine Occult Blood 10 H Urine Nitrite Negative Urine Bilirubin Negative Urine Urobilinogen Normal Ur Leukocyte Esterase 500 H Urine RBC 0 SEEN Urine WBC 5-10 SEEN Ur Squamous Epith Cells 10-25 SEEN Urine Bacteria 1+ Urine Mucus 0 SEEN Radiography Diagnostic Testing: Radiology Impression Gallbladder Ultrasound 11/26/20 08:37 IMPRESSION: Normal gallbladder ultrasound Electronically Signed: Salomón Huizar DO at 10:11 EDT Tel , Service support , ADDENDUM: 11/26/20 1129 Abdomen/Pelvis CT 08/05/21 10:46 IMPRESSION: 1. Bilateral nonobstructive nephrocalcinosis is identified. 2. Hepatomegaly is again identified, and is unchanged. Electronically Signed: Salomón Huizar DO at 12:04 EDT Tel , Service support , Discharge Plan Triage Chief Complaint: Abd Pain ED Provider: Wang Owen Dx/Rx/DC Orders Clinical Impression: Biliary colic Instructions: Abdominal Pain Prescriptions: New ondansetron HCl [Zofran] 4 mg tablet 4 mg PO Q8H PRN (Reason: nausea and vomiting) Qty: 10 RF: 0 oxycodone-acetaminophen [Percocet] 5-325 mg tablet 1 tab PO Q6H PRN (Reason: pain) 3 Days Qty: 10 RF: 0 No Action atorvastatin 40 mg tablet 40 mg PO QHS RF: 0 levetiracetam 250 mg tablet 750 mg PO BID RF: 0 ascorbic acid (vitamin C) 500 mg tablet 500 mg PO DAILY RF: 0 albuterol sulfate 1 INHALER inhaler 2 puff inhalation Q6H PRN PRN (Reason: Shortness Of Breath) RF: 0 multivitamin,yn-omzd-rlgcmbts 1 TABLET tablet 1 tab PO DAILY RF: 0 diazepam 5 mg tablet 5 mg PO BID PRN PRN (Reason: seizure activity) RF: 0 zolpidem 10 mg tablet 10 mg PO QHS PRN (Reason: insomnia) RF: 0 metformin 500 MG tablet 1,000 mg PO BID RF: 0 furosemide 40 MG tablet 40 mg PO DAILY Qty: 30 RF: 0 metoprolol tartrate 100 mg tablet 150 mg PO BID Qty: 90 RF: 11 verapamil 120 mg capsule,ext rel. pellets 24 hr 120 mg PO DAILY Qty: 90 RF: 3 Primary Care Provider: Ricky Shelton Referrals: Ricky Shelton MD [Primary Care Provider] - Disposition Disposition: Home, Self Care
[2020-11-26] MEDS: Ondansetron 4 MG/2 ML Vial IV (08:43)
[2020-11-26] MEDS: Ketorolac 15 MG/ML Vial IV (08:43)
[2020-11-26 08:47] LABS: Absolute Lymphocyte Count 3.16 X10^3/uL (0.83-4.51); Absolute Neutrophil Count 6.5 X10^3/uL (2.0-7.7); Basophil# 0.09 X10^3/uL; Basophil% 0.8 % (0-1); Eosinophil# 0.12 X10^3/uL; Eosinophils% 1.1 % (0-5); Hemoglobin 12.8 g/dL (12.0-15.0); Lymphocyte # 3.16 X10^3/ul (0.83-4.51); Lymphocyte % 29.7 % (19-41); Mean Corpuscular Hgb 30.3 pg (27.0-32.0); Mean Corpuscular Volume 94.8 fL (81-99); Mean Platelet Vol. 9.8 fl (6.2-12.0); Monocyte# 0.57 X10^3/uL; Monocyte% 5.4 % (0-10); NRBC Flagged by Analyzer 0 % (0-5); Neutrophil # 6.47 X10^3/uL (2.7-7.7); Neutrophil % 60.9 % (47-70); Platelet Count 482 K/mm3 (150-450); RBC Distribution Width CV 12.6 % (11.6-14.6); RBC Distribution Width SD 43.7 fl (35.1-43.9); Red Blood Count 4.22 M/mm3 (4.2-5.4); White Blood Count 10.6 K/mm3 (4.4-11.0)
[2020-11-26 09:01] LABS: Internal QC Validated? YES +Cl - CLEAR BKGD; Pregnancy, Serum, hCG Quali. NEGATIVE Negative
[2020-11-26 09:02] LABS: ALB/GLOB Ratio 0.8 RATIO (0.9-2.4); AST(SGOT) 49 U/L (15-37); Alanine Aminotransfer ALT/SGPT 62 U/L (13-56); Albumin, Serum 3.9 g/dL (3.2-5.0); Alkaline Phosphatase 65 U/L (45-117); Anion Gap 11 (5-15); BUN 20 mg/dL (7-18); BUN/Creat Ratio 21.3 RATIO (10-20); Calcium,Total 9.9 mg/dL (8.5-10.1); Chloride 97 mmol/L (98-107); Creatinine, Serum 0.94 mg/dL (0.55-1.02); EST Glomerular Filtration Rate 71 mL/min (>60); Est Glom Filt Rate - Afr Amer 86 mL/min (>60); Estimated Creatinine Clearance 61.23 ml/min; Globulin 4.9 g/dL (2.2-4.2); Glucose 184 mg/dL (74-106); Lipase 175 U/L (73-393); Potassium 3.9 mmol/L (3.5-5.1); Protein, Total 8.8 g/dL (6.4-8.2); Sodium Level 136 mmol/L (136-145)
[2020-11-26 09:14] LABS: Mucous, Urine 0 SEEN /hpf (<or=2+); Red Blood Cells-Urine 0 SEEN /hpf (0-5)
[2020-11-26 09:17] LABS: Color, Urine Yellow (Yellow); Glucose, Dipstick Normal (Normal); Ketone-Dipstick Negative (Negative); Leukocyte Esterase-Dipstick 500 /ul (Negative); Nitrite-Dipstick Negative (Negative); Occult Blood-Urine 10 /ul (Negative); Protein-Dipstick 500 mg/dl (Negative); Urine Bilirubin Dipstick Negative (Negative); Urine Clarity Sl. Cloudy (Clear); Urine Urobilinogen Normal (Normal)
[2020-11-26 09:25] LABS: Bacteria 1+ /hpf (None Seen); Squamous Epithelial Cells - UA 10-25 SEEN /hpf (5-10); White Blood Cells 5-10 SEEN /hpf (0-5)
[2020-11-26] MEDS: Morphine 4 MG/ML Syringe IV (10:14)
--- NOTE | 2020-11-26 10:46 | CT_ITS ---
EXAM DESCRIPTION: CT scan of the abdomen and pelvis CLINICAL HISTORY: 40 years Female, abd pain COMPARISON: Previous CT scan of the abdomen pelvis obtained on 11/26/2019 TECHNIQUE: A CT scan of the abdomen and pelvis was performed with IV contrast contrast administration. Oral contrast was not administered. Coronal and sagittal reconstruction images were reviewed. This exam was performed according to our departmental dose-optimization program, which includes automated exposure control, adjustment of the mA and/or kV according to patient size and/or use of iterative reconstruction technique. FINDINGS: The lung bases and the base of the heart are normal. Hepatomegaly is identified which was previously noted and is unchanged..The spleen is normal.The adrenal glands are normal.The head, body, and tail of the pancreas are normal. 2 tiny nonobstructing calyceal calculi measuring 3 mm in size are seen in the right kidney with a larger 8 mm nonobstructing calculus seen in the mid pole calyces of the left kidney. The abdominal aortal is normal along its course and distribution. No paraortic lymphadenopathy is seen. No abdominal masses or lesions are seen. The CT scan of the pelvis was then reviewed. The common iliac vessels, external iliac vessels, and common femoral vessels are normal along their course and distribution No pelvis masses or lesions are seen. The appendix is not seen but no pericecal inflammatory reaction is identified. Bone scanning windows of the lumbar spine and pelvis were reviewed in the coronal and sagittal planes and appear to be normal. CT/Abdomen/Pelvis W IV Cont ONLY IMPRESSION: 1. Bilateral nonobstructive nephrocalcinosis is identified. 2. Hepatomegaly is again identified, and is unchanged. Electronically Signed: Salomón Huizar DO at 12:04 EDT Tel , Service support ,
[2020-11-26 12:39] VITALS: BP 118/78; PULSE 104; RESP 16; O2SAT 95
== END 2020-11-26 12:58 | disposition home or self-care (01) ==
PROVIDERS: Emergency Provider Emergency Medicine; PCP Family Medicine
DX: K80.50 Calculus of bile duct without cholangitis or cholecystitis without obstruction (principal); E66.9 Obesity, unspecified; Z68.38 Body mass index [BMI] 38.0-38.9, adult; I47.1 Supraventricular tachycardia; J45.909 Unspecified asthma, uncomplicated; G40.909 Epilepsy, unspecified, not intractable, without status epilepticus; G43.909 Migraine, unspecified, not intractable, without status migrainosus; Z79.899 Other long term (current) drug therapy
CPT/HCPCS: 74177; 76705; 80053; 81001; 83690; 84703; 85025; 96374; 96375; 99284; Q9967; A4216; J2405

== ENCOUNTER 2022-06-29 06:59 | Emergency (ER) | payer OTHER, SELFPAY ==
[2022-06-29 06:59] VITALS: BP 109/76; PULSE 66; RESP 16; TEMP 35.7; O2SAT 96; O2SAT 99; BMI 35.8
--- NOTE | 2022-06-29 07:26 | CT_ITS ---
INDICATION: Pain EXAMINATION: CT ABDOMEN AND PELVIS WITHOUT CONTRAST - CT Abdomen And Pelvis W/O Contrast Injection TECHNIQUE: Helically acquired images were obtained of the abdomen and pelvis without oral or IV contrast. A radiation dose optimization technique was used for this scan. IV Contrast dosage and agent: None. Oral contrast: None. COMPARISON: July 27, 2020 FINDINGS: LOWER CHEST: Lung bases are clear. No cardiomegaly or pericardial effusion. The lack of intravenous contrast limits evaluation of solid visceral organs. LIVER: The liver is diffusely low in attenuation. There is hepatomegaly. GALLBLADDER AND BILIARY TREE: No calcified gallstones. No gallbladder distension or wall edema. No intra- or extrahepatic biliary ductal dilation. PANCREAS: No focal cystic or solid mass. SPLEEN: There is stable borderline splenomegaly. ADRENAL GLANDS: No nodules. KIDNEYS AND URETERS: Normal renal size and position. There are bilateral nonobstructing renal calculi measuring 3.9 mm on the right and 11 mm on the left. No hydronephrosis. PERITONEUM: No ascites or free air. No other fluid collection. BOWEL: No stomach or bowel distension. No focal inflammatory change. LYMPH NODES: No enlarged mesenteric or retroperitoneal lymph nodes. VESSELS: Aorta is non-dilated. URINARY BLADDER: Unremarkable. REPRODUCTIVE ORGANS: No pelvic masses. The right adnexa is stable. The left adnexa slightly less pronounced the prior examination. ABDOMINAL WALL: No discrete abdominal or pelvic wall hernia. BONES: No lytic or blastic abnormality. CT/Abdomen/Pelvis without Cont IMPRESSION: Fatty infiltration of the liver associated with hepatomegaly. Stable borderline splenomegaly. Bilateral nonobstructing renal calculi measuring up to 11 mm on the left. Electronically Signed: Traic Ferreira MD at 8:34 EST ,
--- NOTE | 2022-06-29 07:27 | ED.VIS.GI ---
HPI HPI - GI History of Present Illness Chief Complaint: Flank Pain Detail of Chief Complaint: Flank pain. Informant: patient Abdominal Pain/Flank Pain Onset: Days Context: Gradual Onset Timing: Intermittent Quality: Aching Location: Left Flank Current Severity: Mild Maximum Severity: Mild Worsened by: Nothing Relieved by: Nothing Nausea/Vomiting/Emesis GI Symptom: Positive for Nausea and Vomiting Onset: Days Severity: Mild Diarrhea/Melena/Hematochezia GI Symptom: Negative for Diarrhea, Melena or Hematochezia Associated Symptoms Associated Symptoms: Positive for Hematuria; Negative for Dysuria or Frequency Narrative Narrative: 41-year-old female history of asthma, diabetes and epilepsy. States she had ultrasound of her kidneys done at the [facility] here in [facility] and was told she had a left kidney stone. She believes it is in her kidney. She saw a physician assistants for the urologist. They are setting up for urology referral in [place]. States she has had some intermittent nausea and vomiting. Left flank pain. Today she noticed some blood in her urine. Denies any dysuria. No fever. Prior similar symptoms: No Recent Illness/Hospitalization: No PFSH PFS Medical History (Updated 06/29/22 @ 09:[address] Aniket Lambert MD) Asthma Asthma Back pain Fatigue Knee pain Migraines Seizures Shoulder pain SOB (shortness of breath) SVT (supraventricular tachycardia) Home Medications albuterol sulfate 90 mcg/actuation aerosol inhaler 2 puff inhalation Q6H PRN PRN Shortness Of Breath 06/28/13 [History Last Taken 09/04/18] multivitamin,sb-uaqa-pblfqkle 27 mg-0.4 mg tablet 1 tab PO DAILY health maintenance 06/28/13 [History Last Taken 09/04/18] diazepam 5 mg tablet 5 mg PO BID PRN PRN seizure activity 03/27/19 [History Last Taken Unknown] ascorbic acid (vitamin C) 500 mg tablet 500 mg PO DAILY Check with primary doctor 06/26/19 [History Last Taken Unknown] levetiracetam 250 mg tablet 750 mg PO BID Check with primary doctor 06/26/19 [History Last Taken Unknown] zolpidem 10 mg tablet 10 mg PO QHS PRN insomnia 06/26/19 [History Last Taken Unknown] atorvastatin 40 mg tablet 40 mg PO QHS Check with primary doctor 07/02/19 [History Last Taken Unknown] metformin 500 mg tablet 1,000 mg PO BID Check with primary doctor 04/12/20 [History Last Taken Unknown] furosemide 40 mg tablet 40 mg PO DAILY #30 tabs 04/13/20 [Rx Last Taken Unknown] ondansetron HCl 4 mg tablet (Zofran) 4 mg PO Q8H PRN nausea and vomiting #10 tabs 11/26/20 [Rx Last Taken Unknown] oxycodone-acetaminophen 5 mg-325 mg tablet (Percocet) 1 tab PO Q6H PRN pain 3 days #10 tabs 11/26/20 [Rx Last Taken Unknown] metoprolol tartrate 100 mg tablet 150 mg PO BID SVT #90 tabs 04/22/21 [Rx Last Taken Unknown] verapamil 120 mg 24 hr capsule,extended release 120 mg PO DAILY #90 CAPSULES 01/14/22 [Rx Last Taken Unknown] Allergy/AdvReac Type Severity Reaction Status Date / Time cyclobenzaprine Allergy Intermediate Hives Verified 06/29/22 07:03 [From Flexeril] gabapentin Allergy Intermediate Hives Verified 06/29/22 07:03 meperidine [From Demerol] Allergy Intermediate passes out Verified 06/29/22 07:03 Penicillins Allergy Hives Verified 06/29/22 07:03 tramadol Allergy Hives Verified 06/29/22 07:03 Family History Mother COPD (chronic obstructive pulmonary disease) Heart disease Father , Age 69 Atrial fibrillation Sister , 36 years Atrial fibrillation Hypertension Heart disease Other Cancer Surgical History History of arthroscopy of left knee (~2002) History of foot surgery (~1992) History of knee surgery (~2003) History of ovarian cystectomy (~2008) Social History Smoking Status: Never smoker alcohol intake: current alcohol intake frequency: holidays/special occasions only Alcohol type: wine substance use type: does not use caffeine: No ROS ROS ED ROS Narrative Left flank pain. Nausea and vomiting. Hematuria. Review of Systems ROS Unobtainable: Denies due to encephalopathy Constitutional Constitutional ED: Denies chills or fever(s) ENT ENT ED: Denies ear pain Cardiovascular Cardiovascular: Denies chest pain Respiratory/Chest Respiratory/Chest: Denies cough or dyspnea Gastrointestinal Gastrointestinal: Reports abdominal pain, nausea and vomiting; Denies constipation, diarrhea or melena Genitourinary Genitourinary ED: Reports hematuria; Denies dysuria Musculoskeletal Musculoskeletal: Denies arthralgias Integumentary Denies abscess Neurologic Neurologic: Denies headache(s) Psychiatric Psychiatric: Denies anxiety Endocrine Endocrinology: Denies polydipsia Hematologic/Lymphatic Hematologic/Lymphatic: Denies easy bleeding Allergic/Immunologic Allergic/Immunologic ED: Denies mouth swelling or tongue swelling EXAM Physical Exam Narrative Exam Narrative: 41-year-old female no acute distress. Vital signs stable afebrile. H EENT exam mildly dry mucous membranes. Otherwise unremarkable. Lungs clear. Heart regular rhythm rate about 65 no murmur. Chest wall nontender. Abdomen soft nondistended normal bowel sounds no peritoneal signs. Mild left side tenderness and left CVA tenderness. Otherwise back unremarkable. Abdomen no peritoneal signs. Moving all 4 extremities. Nontender no edema. Neurologically awake and alert. Const Vital Signs: 06/29/22 06:59 06/29/22 06:59 06/29/22 07:39 Temperature 96.3 F L Temperature Source Temporal Pulse Rate 66 Respiratory Rate 16 Respiratory Effort Normal Non-Labored Respiratory Pattern Normal Blood Pressure 109/76 Blood Pressure Mean 87 Pulse Ox 96 99 Oxygen Delivery Method Room Air Room Air Positive well nourished, well developed and obese; Negative for cachectic, contractures or unkempt General Appearance ED: well developed and NAD; Negative for unkempt, cachectic, contractures or pallor Nutritional Appearance: obese; Negative for cachectic HEENT Reports dry mucous membranes normocephalic and atraumatic; Negative for trauma or tenderness Mouth ED: Yes dry mucous membranes Mouth: dry mucous membranes Eyes PERRL and EOMs intact bilaterally General Eye ED: Negative for pale conjunctiva or scleral icterus Neck no lymphadenopathy, supple and no JVD General: Negative for tenderness Carotids: Negative for other Lymph Lymphatic: Negative for other Resp normal respiratory effort and clear to auscultation bilaterally Effort and Inspection: Negative for respiratory distress Auscultation: Negative for rales, rhonchi or wheezes Cardio regular rate, regular rhythm, S1 normal heart sound, S2 normal heart sound and no murmurs Rate: Negative for bradycardia or tachycardic GI non-distended and no masses; Negative for non-tender GI Narrative: Mild tenderness left side of her abdomen. Inspection: Negative for abdominal distention Auscultation: normoactive bowel sounds Palpation: soft and tender; Negative for guarding or rigid Back/Spine Negative for no CVA tenderness Back/Spine Narrative: Mild left CVA tenderness. General Back: CVA tenderness Cervical Spine: Negative for cervical spine tenderness Thoracic Spine / Upper Back: Negative for thoracic spinal tenderness Lumbar Spine / Lower Back: Negative for lumbar spinal tenderness Extremity full ROM General Extremety ED: Negative for edema or tenderness General Extremity: Negative for edema Neuro CN's II-XII intact bilaterally and moves all extremities Sensorium / Orientation: alert, oriented to person, oriented to place and oriented to time; Negative for orientation impaired, confused, lethargic or stuporous Motor Exam: strength 5/5 throughout Psych mental status grossly normal and thought process normal Appearance: Negative for unkempt Attitude: No agitated Mood & Affect: Negative for depressed, anxious or tearful Skin no wounds General Skin Exam: Negative for jaundice or pallor Lesions: no lesions Rashes: no rashes Trauma: Negative for abrasion Nails: Negative for discolored MDM MDM MDM Narrative Medical decision making narrative: 41-year-old with left flank pain. CAT scan to be obtained to evaluate for kidney stone. Treated with IV morphine and Toradol for pain. Zofran for nausea. IV fluids for nausea and vomiting and dehydration. Labs and urinalysis. Patient just finished a prescription of the antibiotic Macrobid. Labs unremarkable normal CBC. Chemistries unremarkable BUN slightly elevated 28. Urine was contaminated. She just finished an antibiotic. I do not think she needs any more antibiotic. I explained the patient and her CAT scan shows 11 mm left renal stone but that may not be the cause of her pain. Clinically she is doing well at this time. Abdomen benign. I explained to her we would use Tylenol and Motrin for this pain not a narcotic. She will be discharged home to follow-up with urology. Lab Data Attestation: I reviewed the patient's lab results. Lab results narrative: CBC shows a white count 6.7. H&H of 12 and 36. Electrolytes show sodium 132 a gap of 8. BUN 28 creatinine of 1. Glucose 416. Urinalysis shows 25-50 whites 5-10 Destiny's also with contaminated 2+ bacteria and no nitrites. Labs: Laboratory Results - last 24 hr 06/29/22 06/29/22 06/29/22 07:37 07:37 08:36 WBC 6.7 RBC 4.06 L Hgb 12.0 Hct 36.7 L MCV 90.4 MCH 29.6 MCHC 32.7 RDW Std Deviation 41.7 RDW Coeff of Yoni 12.5 Plt Count 362 MPV 10.2 Immature Gran % (Auto) 0.900 Neut % (Auto) 48.9 Lymph % (Auto) 42.1 H Mer[place] % (Auto) 5.8 Eos % (Auto) 1.3 Baso % (Auto) 1.0 Absolute Neuts (auto) 3.3 Absolute Lymphs (auto) 2.84 Nucleated RBC % 0 Sodium 132 L Potassium 3.9 Chloride 97 L Carbon Dioxide 27.0 Anion Gap 8 BUN 28 H Creatinine 1.02 Estim Creat Clear Calc 55.88 Est GFR (MDRD) Af Amer 77 Est GFR (MDRD) Non-Af 64 BUN/Creatinine Ratio 27.5 H Glucose 416 H Calcium 9.0 Urine Color Yellow Urine Clarity Sl. Cloudy Urine pH 5.0 Ur Specific [place] 1.020 Urine Protein 500 H Urine Glucose (UA) 250 H Urine Ketones Negative Urine Occult Blood 25 H Urine Nitrite Negative Urine Bilirubin Negative Urine Urobilinogen Normal Ur Leukocyte Esterase 500 H Urine RBC 0-5 SEEN Urine WBC 25-50 SEEN Ur Squamous Epith Cells 5-10 SEEN Urine Bacteria 2+ Urine Mucus 0 SEEN Radiography Diagnostic Testing: Clinical Impression(s) from Imaging Studies Abdomen/Pelvis CT 06/29/22 07:26 IMPRESSION: Fatty infiltration of the liver associated with hepatomegaly. Stable borderline splenomegaly. Bilateral nonobstructing renal calculi measuring up to 11 mm on the left. Electronically Signed: Traci Ferreira MD at 8:34 EST , Discharge Plan Triage Chief Complaint: Flank Pain ED Provider: Aniket Lambert Dx/Rx/DC Orders Clinical Impression: Acute abdominal pain in left flank, Left renal stone, History of diabetes mellitus Instructions: ED Abdominal Pain Unkn Cause Fem Prescriptions: No Action atorvastatin 40 mg tablet 40 mg PO QHS levetiracetam 250 mg tablet 750 mg PO BID ascorbic acid (vitamin C) 500 mg tablet 500 mg PO DAILY albuterol sulfate 1 INHALER inhaler 2 puff inhalation Q6H PRN PRN (Reason: Shortness Of Breath) multivitamin,[id number]-pgscywiw 1 TABLET tablet 1 tab PO DAILY diazepam 5 mg tablet 5 mg PO BID PRN PRN (Reason: seizure activity) zolpidem 10 mg tablet 10 mg PO QHS PRN (Reason: insomnia) Label Comments: TAKE 1 TABLET AT BEDTIME NEEDED FOR INSOMNIA metformin 500 MG tablet 1,000 mg PO BID furosemide 40 MG tablet 40 mg PO DAILY Qty: 30 0RF ondansetron HCl [Zofran] 4 mg tablet 4 mg PO Q8H PRN (Reason: nausea and vomiting) Qty: 10 0RF oxycodone-acetaminophen [Percocet] 5-325 mg tablet 1 tab PO Q6H PRN (Reason: pain) 3 Days Qty: 10 0RF metoprolol tartrate 100 mg tablet 150 mg PO BID Qty: 90 11RF verapamil 120 mg capsule,ext rel. pellets 24 hr 120 mg PO DAILY Qty: 90 3RF Primary Care Provider: Ricky Shelton Referrals: Salvatore Gallo MD [Med Staff - Active Staff] - As soon as possible Ricky Shelton MD [Primary Care Provider] - Activity Restrictions/Additional Instructions: Motrin and Tylenol for pain. Your CAT scan showed a stone in your left kidney it is around 11 mm. However that may not be causing you any pain. Follow-up with a urologist to discuss this. Disposition Disposition: Home, Self Care
[2022-06-29] MEDS: 0.9% Normal Saline 1,000 ML 1000 ML IV (07:42)
[2022-06-29] MEDS: Ondansetron 4 MG/2 ML Vial IV (07:43)
[2022-06-29] MEDS: Ketorolac 30 MG/ML Syringe IV (07:43)
[2022-06-29] MEDS: morphine 8 MG/ML Syringe IV (07:43)
[2022-06-29 07:45] LABS: Absolute Lymphocyte Count 2.84 X10^3/uL (0.83-4.51); Absolute Neutrophil Count 3.3 X10^3/uL (2.0-7.7); Basophil# 0.07 X10^3/uL; Eosinophil# 0.09 X10^3/uL; Eosinophils% 1.3 % (0-5); Hematocrit 36.7 % (37-47); Lymphocyte # 2.84 X10^3/ul (0.83-4.51); Lymphocyte % 42.1 % (19-41); Mean Corp Hgb Conc 32.7 g/dL (32-36); Mean Corpuscular Hgb 29.6 pg (27.0-32.0); Mean Corpuscular Volume 90.4 fL (81-99); Mean Platelet Vol. 10.2 fl (6.2-12.0); Monocyte# 0.39 X10^3/uL; Monocyte% 5.8 % (0-10); NRBC Flagged by Analyzer 0 % (0-5); Neutrophil # 3.29 X10^3/uL (2.7-7.7); Neutrophil % 48.9 % (47-70); Platelet Count 362 K/mm3 (150-450); RBC Distribution Width CV 12.5 % (11.6-14.6); RBC Distribution Width SD 41.7 fl (35.1-43.9); Red Blood Count 4.06 M/mm3 (4.2-5.4); White Blood Count 6.7 K/mm3 (4.4-11.0)
[2022-06-29 07:57] LABS: Anion Gap 8 (5-15); BUN 28 mg/dL (7-18); BUN/Creat Ratio 27.5 RATIO (10-20); Chloride 97 mmol/L (98-107); Creatinine, Serum 1.02 mg/dL (0.55-1.02); EST Glomerular Filtration Rate 64 mL/min (>60); Est Glom Filt Rate - Afr Amer 77 mL/min (>60); Estimated Creatinine Clearance 55.88 ml/min; Glucose 416 mg/dL (74-106); Potassium 3.9 mmol/L (3.5-5.1); Sodium Level 132 mmol/L (136-145)
[2022-06-29 08:40] LABS: Mucous, Urine 0 SEEN /hpf (<or=2+)
[2022-06-29 08:42] LABS: Color, Urine Yellow (Yellow); Glucose, Dipstick 250 mg/dl (Normal); Ketone-Dipstick Negative (Negative); Leukocyte Esterase-Dipstick 500 /ul (Negative); Nitrite-Dipstick Negative (Negative); Occult Blood-Urine 25 /ul (Negative); Protein-Dipstick 500 mg/dl (Negative); Urine Bilirubin Dipstick Negative (Negative); Urine Clarity Sl. Cloudy (Clear); Urine Urobilinogen Normal (Normal)
[2022-06-29 08:48] LABS: Bacteria 2+ /hpf (None Seen); Red Blood Cells-Urine 0-5 SEEN /hpf (0-5); Squamous Epithelial Cells - UA 5-10 SEEN /hpf (5-10); White Blood Cells 25-50 SEEN /hpf (0-5)
[2022-06-29 10:05] VITALS: BP 124/77; PULSE 82; RESP 16; O2SAT 97
== END 2022-06-29 10:07 | disposition home or self-care (01) ==
PROVIDERS: Emergency Provider Emergency Medicine; PCP Family Medicine; Visit Provider Emergency Medicine
DX: N20.0 Calculus of kidney (principal); R10.9 Unspecified abdominal pain; E11.9 Type 2 diabetes mellitus without complications; J45.909 Unspecified asthma, uncomplicated; Z79.899 Other long term (current) drug therapy; G40.909 Epilepsy, unspecified, not intractable, without status epilepticus
CPT/HCPCS: 74176; 80048; 81001; 85025; 96361; 96374; 96375; 99283; J7030; J2405

== ENCOUNTER → 2022-10-18 | Outpatient (CLI) | payer OTHER, SELFPAY ==
--- NOTE | 2022-10-18 09:02 | RAD_ITS ---
INDICATION: KUB- STONES EXAMINATION/TECHNIQUE: X-RAY - XR Abdomen 1 View COMPARISON: FINDINGS: BOWEL GAS PATTERN: There is mild prominence of some gas-filled central loops of bowel with otherwise a nonobstructive bowel gas pattern in distal bowel gas visualized. FREE AIR: Not assessed on a single supine view. ORGANOMEGALY: Not seen. CALCIFICATIONS: No abnormal calcifications observed. LOWER CHEST: No acute pathology. BONES AND SOFT TISSUES: No acute pathology. RAD/Abdomen Single View IMPRESSION: Mild prominent gas-filled central loops of bowel may be related to fecal retention. Distal bowel gas visualized. Electronically Signed: Tha Ortiz, at 14:43 EDT ,
== END | disposition home or self-care (01) ==
LOC: MTRAD 08:59
PROVIDERS: PCP Family Medicine; Referring Provider Urology; Visit Provider Urology
DX: N20.0 Calculus of kidney (principal)
CPT/HCPCS: 74018

== ENCOUNTER → 2022-10-28 | Outpatient (CLI) | payer OTHER, SELFPAY ==
--- NOTE | 2022-10-28 16:31 | CT_ITS ---
STUDY: CT Abdomen And Pelvis W/O Contrast Injection 10/29/2022 7:08 PM REASON FOR EXAM: Female, 42 years old. ABDOMINAL PAIN Calculus of kidney, Unspecified abdominal pain TECHNIQUE: Transaxial images were obtained without oral contrast, and without intravenous contrast. Individualized dose optimization techniques were used for this CT. COMPARISON: 11.29.22. FINDINGS: The visualized lung bases are unremarkable. The visualized portions of the heart are within normal limits. There is decreased attenuation of the liver consistent with steatosis. Unremarkable gallbladder and extrahepatic biliary system. Unremarkable spleen. Unremarkable pancreas.There is hepatomegaly with diffuse hepatic enlargement. Unremarkable bilateral adrenal glands. Non obstructive 3mm right renal parenchymal stones. No acute findings of the left kidney. Unremarkable visualized stomach. Unremarkable small intestine. Unremarkable colon. There is non-visualization of the appendix. There are no acute findings of the abdominal aorta. Unremarkable inferior vena cava. Subcentimeter mesenteric lymph nodes. Unremarkable urinary bladder. Normal visualized uterus. There is an umbilical hernia containing fat. Unremarkable osseous structures. CT/Abdomen/Pelvis without Cont IMPRESSION: (NOT LISTED IN ORDER OF SIGNIFICANCE) Fatty liver. Enlarged liver. Non obstructive 3mm right renal parenchymal stones. Left renal stone is no longer identified. Other findings as above. Electronically Signed: Jose Dennison MD at 19:11 EDT ,
== END | disposition home or self-care (01) ==
PROVIDERS: PCP Family Medicine; Referring Provider Urology; Visit Provider Urology
DX: N20.0 Calculus of kidney (principal); R10.9 Unspecified abdominal pain
CPT/HCPCS: 74176

== ENCOUNTER 2022-11-17 06:15 | Day surgery (SDC) | payer OTHER, SELFPAY ==
[2022-11-17] VITALS (7 sets, daily range): BP systolic 101–134; BP diastolic 61–90; PULSE 79–85; RESP 16–18; TEMP 36.6–37.3; O2SAT 94–99; BMI 33.3
[2022-11-17 06:37] LABS: Internal QC Validated? YES +Cl - CLEAR BKGD; Pregnancy, Urine Negative Negative
[2022-11-17 07:02] LABS: Bedside Glucose 273 mg/dL (74-106)
[2022-11-17] MEDS: Lactated Ringers 1,000 ML 15 ML IV ×2 (07:20→09:00)
[2022-11-17] MEDS: Cefazolin 2 GM in 0.9% Normal Saline 100 ML IV (08:24)
--- NOTE | 2022-11-17 09:26 | DCINST_ITS ---
Discharge Instructions Diet Discharge Diet: No restrictions Activity Discharge Activity: Return to Normal Activity Dressing / Incision Call your doctor if you observe: Fever of 101 or Higher, Inability to urinate and Inability to have a bowel movement Follow Up Care Please Follow Up With: Roma Harris MD Test Results: Test results from this visit will be discussed in further detail at your follow- up appointment, if applicable. Pending Tests Upon Discharge: The office will call the patient to set up an appointment for stent removal next week Discharge Plan Admission Attending Provider: Roma Harris Primary Care Provider: Ricyk Shelton Discharge Orders/Prescriptions Prescriptions: New oxycodone-acetaminophen [Percocet] 5-325 mg tablet 1 tab PO Q8H PRN (Reason: pain) 3 Days Qty: 10 0RF phenazopyridine [Pyridium] 200 mg tablet 200 mg PO TID PRN PRN (Reason: Bladder Spasms) 7 Days Qty: 30 0RF Continued atorvastatin 40 mg tablet 40 mg PO QHS levetiracetam 250 mg tablet 750 mg PO BID ascorbic acid (vitamin C) 500 mg tablet 500 mg PO DAILY albuterol sulfate 1 INHALER inhaler 2 puff inhalation Q6H PRN PRN (Reason: Shortness Of Breath) multivitamin,ao-ttpt-nocltsus 1 TABLET tablet 1 tab PO DAILY diazepam 5 mg tablet 5 mg PO BID PRN PRN (Reason: seizure activity) zolpidem 10 mg tablet 10 mg PO QHS PRN (Reason: insomnia) Patient Comments: TAKE 1 TABLET AT BEDTIME NEEDED FOR INSOMNIA metformin 500 MG tablet 1,000 mg PO BID furosemide 40 MG tablet 40 mg PO DAILY Qty: 30 0RF metoprolol tartrate 100 mg tablet 150 mg PO BID Qty: 90 11RF verapamil 120 mg capsule,ext rel. pellets 24 hr 120 mg PO DAILY Qty: 90 3RF Referrals / Follow Up: Ricky Shelton MD [Primary Care Provider] - Disposition Disposition (needs filled in before D/C Order can be placed): Home, Self Care
--- NOTE | 2022-11-17 09:29 | PCM.OPRPT ---
Report of Operation Date of Procedure: 11/17/22 Pre-Operative Diagnosis: right renal stones Post-Operative Diagnosis: Same Surgery/Procedure Performed:: Cystoscopy, right ureteroscopy, stone basket extraction, right ureteral stent insertion Surgeon: Roma Harris Type of Anesthesia: General Specimen's removed: Renal calculi Description of Procedure: The patient is a 42-year-old female who has developed right-sided flank discomfort. On evaluation with CT scan she was diagnosed with nonobstructing right renal stones approximately 3 mm in size each. The patient desired to proceed with surgical intervention secondary to continued discomfort. Informed consent was obtained. The patient was taken to the operating room and placed on the operating room table. Anesthesia monitored the head, neck, airway, IV access and vital signs throughout the case. Once anesthesia was appropriately administered, she was placed into dorsolithotomy position was prepped and draped in usual sterile fashion. The cystoscope was inserted through the urethra under direct visualization into the urinary bladder. The bladder mucosa was visualized in its entirety revealing normal anatomy and normal bladder mucosa with no evidence of erythema, ulceration or mass. The right ureteral orifice was intubated with 2 separate 0.035 glide wires which easily advanced into the renal pelvis as seen on fluoroscopy. Using 1 of these wires, the flexible ureteroscope was inserted into the ureter and advanced into the renal pelvis without difficulty. On evaluation with the ureteroscope, the 3 stones were identified and were retrieved using a stone basket and sent for analysis. Following stone retrieval, the ureteroscope was used to directly visualize the ureter on the way out revealing no evidence of injury. The remaining safety wire was then utilized along with the cystoscope for placement of a 4.5 x 22 cm JJ stent which was positioned in the renal pelvis with good curling in the urinary bladder. Her bladder was then emptied and the cystoscope was removed. She was awakened and taken to the recovery room in good condition. There were no complications during this procedure. Grafts/Implants Used: 4.5 x 22 cm JJ stent Complications None Admit VTE Documentation VTE Present on Admission: Yes VTE Mechan Device Prophylaxis: SCD's VTE Pharm Prophylaxis ordered?: No Reason prophylaxis not ordered:: Treatment Not Indicated
[2022-11-17 10:01] LABS: Bedside Glucose 243 mg/dL (74-106)
[2022-11-17] MEDS: Oxycodone/Apap 5/325 Tablet PO (10:45)
== END 2022-11-17 11:48 | disposition home or self-care (01) ==
LOC: SDC 06:18 → AC 06:19
PROVIDERS: Anesthesiology; PCP Family Medicine; Referring Provider Urology; Visit Provider Urology
PROC: 0TJ98ZZ Inspection of Ureter, Via Natural or Artificial Opening Endoscopic (ICD-10-PCS; CPT 52352; principal; 2022-11-17 08:10)
DX: N20.0 Calculus of kidney (principal); I47.1 Supraventricular tachycardia; G40.909 Epilepsy, unspecified, not intractable, without status epilepticus; E11.9 Type 2 diabetes mellitus without complications; J45.909 Unspecified asthma, uncomplicated; I10 Essential (primary) hypertension
CPT/HCPCS: 52352; 52332; 00918; 76000; 81025; 82360; 82962; J7120; J2405

== ENCOUNTER 2023-08-11 06:38 | Emergency (ER) | payer BC, SELFPAY ==
[2023-08-11] VITALS (7 sets, daily range): BP systolic 92–133; BP diastolic 66–82; PULSE 86–102; RESP 16–18; TEMP 36.2–36.9; O2SAT 96–99; BMI 33.8
--- NOTE | 2023-08-11 06:55 | CT_ITS ---
STUDY: CT ABDOMEN AND PELVIS WITH CONTRAST REASON FOR EXAM: Female, 42 years old. Abd pain RADIATION DOSAGE (If Supplied By Facility): CTDIvol = ( 14.31 ) mGy, DLP = ( 1079.49 ) mGycm TECHNIQUE: Transaxial images were obtained from the dome of the diaphragm to the symphysis pubis without oral contrast. IV 100mL [id number]-[id number] was administered. Sagittal and coronal images were reconstructed. Individualized dose optimization techniques were used for this CT. COMPARISON: Comparison is made with prior study dated October 28, 2022. FINDINGS: The visualized lung bases are unremarkable. The visualized portions of the heart are within normal limits. There is decreased attenuation of the liver consistent with steatosis. Hepatomegaly. Normal gallbladder and extrahepatic biliary system. Normal spleen. Normal pancreas. Normal bilateral adrenal glands. Stable 3 mm nonobstructive calculus in the mid pole calyx of the right kidney. Normal left kidney. Normal visualized stomach. Normal small intestine. Normal colon. The appendix is visualized and appears normal. Normal abdominal aorta. Normal inferior vena cava. Normal retroperitoneum. There is a distended urinary bladder. Small benign-appearing bilateral inguinal lymph nodes. Normal osseous structures. CT/Abdomen/Pelvis W IV Cont ONLY IMPRESSION: Hepatomegaly and fatty infiltration of the liver. Stable nonobstructive 3 mm right intrarenal calculus. Distended urinary bladder. Electronically Signed: Jose Miguel Bone MD at 8:50 EDT ,
--- NOTE | 2023-08-11 06:57 | EX.ED.DYSGE1 ---
HPI History of Present Illness Chief Complaint: Flank Pain Informant: patient and family Narrative Narrative: Patient is a 42-year-old female with past medical history of asthma and previous kidney stones as well as diabetes and hyperlipidemia. Patient states that roughly 2 days ago she had a fever of 102/103 with mild congestion and cough. She states she had sore throat for 1 day as well but this is since resolved. She states the fever seems to have broken but she is now notices pain in the right upper abdomen and right back and has concern for repeat kidney stone as she had to have stent placement roughly 1 year ago. She denies any dysuria or hematuria but does admit to diarrhea and nausea associated with the symptoms. Secondary to this concern she presents for evaluation [facility] Medical History Asthma Asthma Back pain Cardiology follow-up encounter Diabetes Fatigue Heartburn History of echocardiogram Kidney stones Leg cramps Non-smoker Seizures SVT (supraventricular tachycardia) Wears glasses Home Medications albuterol sulfate 90 mcg/actuation aerosol inhaler 2 puff inhalation Q6H PRN PRN Shortness Of Breath 06/28/13 [History Last Taken 09/04/18] multivitamin,[id number] 27 mg-0.4 mg tablet 1 tab PO DAILY health maintenance 06/28/13 [History Last Taken 09/04/18] diazepam 5 mg tablet 5 mg PO BID PRN PRN seizure activity 03/27/19 [History Last Taken Unknown] ascorbic acid (vitamin C) 500 mg tablet 500 mg PO DAILY Check with primary doctor 06/26/19 [History Last Taken Unknown] levetiracetam 250 mg tablet 750 mg PO BID Check with primary doctor 06/26/19 [History Last Taken Unknown] zolpidem 10 mg tablet 10 mg PO QHS PRN insomnia 06/26/19 [History Last Taken Unknown] atorvastatin 40 mg tablet 40 mg PO QHS Check with primary doctor 07/02/19 [History Last Taken Unknown] metformin 500 mg tablet 1,000 mg PO BID Check with primary doctor 04/12/20 [History Last Taken Unknown] furosemide 40 mg tablet 40 mg PO DAILY #30 tabs 04/13/20 [Rx Last Taken Unknown] metoprolol tartrate 100 mg tablet 150 mg (1.5 x 100 mg) PO BID SVT #90 tabs 04/22/21 [Rx Last Taken Unknown] verapamil 120 mg 24 hr capsule,extended release 120 mg PO DAILY #90 CAPSULES 01/14/22 [Rx Last Taken Unknown] phenazopyridine 200 mg tablet (Pyridium) 200 mg PO TID PRN PRN Bladder Spasms 7 days #30 tabs 11/17/22 [Rx Last Taken Unknown] atorvastatin 80 mg tablet 80 mg PO DAILY 08/11/23 [History Last Taken Unknown] benzonatate 100 mg capsule 100 mg PO TID PRN PRN cough 08/11/23 [History Last Taken Unknown] hydrochlorothiazide 12.5 mg capsule 12.5 mg PO DAILY 08/11/23 [History Last Taken Unknown] Allergy/AdvReac Type Severity Reaction Status Date / Time cyclobenzaprine Allergy Intermediate Hives Verified 11/17/22 07:03 [From Flexeril] gabapentin Allergy Intermediate Hives Verified 11/17/22 07:03 meperidine [From Demerol] Allergy Intermediate passes out Verified 11/17/22 07:03 Penicillins Allergy Hives Verified 11/17/22 07:03 tramadol Allergy Hives Verified 11/17/22 07:03 Family History Mother COPD (chronic obstructive pulmonary disease) Heart disease Father , Age 69 Atrial fibrillation Sister , 36 years Atrial fibrillation Hypertension Heart disease Other Cancer Surgical History History of arthroscopy of left knee (~2002) History of foot surgery (~1992) History of knee surgery (~2003) History of ovarian cystectomy (~2008) Hx of wisdom tooth extraction Social History Smoking Status: Never smoker alcohol intake: current alcohol intake frequency: holidays/special occasions only Alcohol type: wine substance use type: does not use caffeine: No ROS ROS ED Constitutional Constitutional ED: Reports chills and fever(s) ENT ENT ED: Reports rhinorrhea and sore throat Cardiovascular Cardiovascular: Denies chest pain Respiratory/Chest Respiratory/Chest: Reports cough; Denies dyspnea Gastrointestinal Gastrointestinal: Reports abdominal pain, diarrhea and nausea; Denies vomiting Genitourinary Genitourinary ED: Denies dysuria, hematuria or urinary frequency Musculoskeletal Musculoskeletal: Reports back pain Integumentary Denies rash Neurologic Neurologic: Denies headache(s) Hematologic/Lymphatic Hematologic/Lymphatic: Denies easy bleeding or easy bruising EXAM Physical Exam Const Vital Signs: 08/11/23 06:39 Temperature 97.1 F L Temperature Source Temporal Pulse Rate 102 H Respiratory Rate 16 Blood Pressure 133/79 H Blood Pressure Mean 97 Pulse Ox 96 Oxygen Delivery Method Room Air Positive well nourished, well developed and obese General Appearance ED: well developed; Negative for pallor Nutritional Appearance: obese HEENT HEENT Narrative: Cobblestoning is noted in the posterior pharynx consistent with sinus drainage but no airway edema or compromise No trismus or change in voice or difficulty with secretions. No erythema or exudates. No obvious abscess formation Eyes PERRL and EOMs intact bilaterally General Eye ED: Negative for scleral icterus Neck supple Neck Narrative: No nuchal rigidity or meningeal signs Resp normal respiratory effort and clear to auscultation bilaterally Resp Narrative: Breath sounds are slight diminished throughout but overall clear to auscultation without nasal flaring retractions tachypnea or accessory muscle use Cardio regular rate and regular rhythm Rate: other Other Details: Heart is regular rate and rhythm without murmurs rubs or gallops Radial and carotid pulses are equal and symmetric GI non-distended and no masses GI Narrative: Abdomen is soft and nondistended with normal active bowel sounds. Patient has pain on palpation in the midepigastric and right upper quadrant region greater in the right upper quadrant region with negative Abreu sign as well as no voluntary guarding or rigidity No pulsatile mass or fluid wave Auscultation: normoactive bowel sounds Palpation: soft Back/Spine Back/Spine Narrative: Mild right CVA pain noted Extremity normal to inspection Neuro oriented x3, CN's II-XII intact bilaterally and no sensory deficits noted Sensorium / Orientation: alert Motor Exam: strength 5/5 throughout Psych mental status grossly normal Skin no rashes or lesions noted and no wounds General Skin Exam: Negative for jaundice or pallor MDM MDM MDM Narrative Medical decision making narrative: Patient presented to the ER with stable vitals and reported symptoms that are more consistent with viral syndrome as she had a fever of 102 with congestion sore throat and loose stool/diarrhea. On exam she has more pain in the right upper quadrant with negative Abreu sign and I do feel this is potentially more biliary colic or acute cholecystitis versus pancreatitis than a potential kidney stone. However as patient has concern for this basic blood work will be obtained to assess liver enzymes and lipase as well as urine sample for infection or blood. I will start with a CT scan of the abdomen pelvis as this will show both kidney as well as gallbladder and intestine and patient be hydrated and medicated. The patient's results are still pending and therefore she will be signed out to the day physician Dr. Lambert for continued evaluation. History & Record Review Discussion w/independent historian: Patient and Family Discharge Plan Triage Chief Complaint: Flank Pain ED Provider: Hank Bryant Dx/Rx/DC Orders Prescriptions: No Action atorvastatin 40 mg tablet 40 mg PO QHS levetiracetam 250 mg tablet 750 mg PO BID ascorbic acid (vitamin C) 500 mg tablet 500 mg PO DAILY albuterol sulfate 1 INHALER inhaler 2 puff inhalation Q6H PRN PRN (Reason: Shortness Of Breath) multivitamin,[id number] 1 TABLET tablet 1 tab PO DAILY diazepam 5 mg tablet 5 mg PO BID PRN PRN (Reason: seizure activity) zolpidem 10 mg tablet 10 mg PO QHS PRN (Reason: insomnia) Patient Comments: TAKE 1 TABLET AT BEDTIME NEEDED FOR INSOMNIA metformin 500 MG tablet 1,000 mg PO BID furosemide 40 MG tablet 40 mg PO DAILY Qty: 30 0RF phenazopyridine [Pyridium] 200 mg tablet 200 mg PO TID PRN PRN (Reason: Bladder Spasms) 7 Days Qty: 30 0RF atorvastatin 80 mg tablet 80 mg PO DAILY benzonatate 100 mg capsule 100 mg PO TID PRN PRN (Reason: cough) hydrochlorothiazide 12.5 mg capsule 12.5 mg PO DAILY metoprolol tartrate 100 mg tablet 150 mg PO BID Qty: 90 11RF verapamil 120 mg capsule,ext rel. pellets 24 hr 120 mg PO DAILY Qty: 90 3RF Primary Care Provider: Ricky Shelton Referrals: Ricky Shelton MD [Primary Care Provider] -
[2023-08-11] MEDS: 0.9% Normal Saline (1000mL) 1,000 ML 999 ML IV (07:03)
[2023-08-11] MEDS: Ondansetron 4 MG/2 ML Vial IV (07:03)
[2023-08-11] MEDS: Morphine 4 MG/ML Syringe IV (07:03)
[2023-08-11 07:18] LABS: Absolute Lymphocyte Count 3.84 X10^3/uL (0.83-4.51); Absolute Neutrophil Count 3.4 X10^3/uL (2.0-7.7); Basophil# 0.07 X10^3/uL; Basophil% 0.9 % (0-1); Eosinophil# 0.13 X10^3/uL; Eosinophils% 1.6 % (0-5); Hemoglobin 11.6 g/dL (12.0-15.0); Lymphocyte # 3.84 X10^3/ul (0.83-4.51); Lymphocyte % 47.8 % (19-41); Mean Corp Hgb Conc 35.2 g/dL (32-36); Mean Corpuscular Hgb 32.7 pg (27.0-32.0); Mean Platelet Vol. 9.7 fl (6.2-12.0); Monocyte# 0.36 X10^3/uL; Monocyte% 4.5 % (0-10); NRBC Flagged by Analyzer 0 % (0-5); Neutrophil # 3.42 X10^3/uL (2.7-7.7); Neutrophil % 42.5 % (47-70); Platelet Count 406 K/mm3 (150-450); RBC Distribution Width CV 13.1 % (11.6-14.6); RBC Distribution Width SD 44.9 fl (35.1-43.9); Red Blood Count 3.55 M/mm3 (4.2-5.4)
[2023-08-11 07:58] LABS: Bacteria 0 SEEN /hpf (None Seen); Mucous, Urine 0 SEEN /hpf (<or=2+); Red Blood Cells-Urine 0 SEEN /hpf (0-5)
[2023-08-11 08:04] LABS: Color, Urine Yellow (Yellow); Glucose, Dipstick 100 mg/dl (Normal); Ketone-Dipstick Negative (Negative); Leukocyte Esterase-Dipstick 500 /ul (Negative); Nitrite-Dipstick Negative (Negative); Occult Blood-Urine 10 /ul (Negative); Protein-Dipstick 100 mg/dl (Negative); Urine Bilirubin Dipstick Negative (Negative); Urine Clarity Sl. Cloudy (Clear); Urine Urobilinogen Normal (Normal)
[2023-08-11 08:13] LABS: Squamous Epithelial Cells - UA 10-25 SEEN /hpf (5-10)
[2023-08-11 08:13] LABS: AST(SGOT) 46 U/L (15-37); Alanine Aminotransfer ALT/SGPT 56 U/L (13-56); Alkaline Phosphatase 85 U/L (45-117); Anion Gap 12 (5-15); BUN 13 mg/dL (7-18); BUN/Creat Ratio 17.7 RATIO (10-20); Bilirubin, Direct < 0.05 mg/dL (0.00-0.30); Calcium,Total 8.4 mg/dL (8.5-10.1); Chloride 101 mmol/L (98-107); Creatinine, Serum 0.74 mg/dL (0.55-1.02); EST Glomerular Filtration Rate 93 mL/min (>60); Est Glom Filt Rate - Afr Amer 112 mL/min (>60); Estimated Creatinine Clearance 97.64 ml/min; Globulin 4.4 g/dL (2.2-4.2); Glucose 265 mg/dL (74-106); Lipase 53 U/L (13-75); Potassium 4.2 mmol/L (3.5-5.1); Protein, Total 7.4 g/dL (6.4-8.2); Sodium Level 135 mmol/L (136-145)
[2023-08-11 08:14] LABS: Internal QC Validated? YES +Cl - CLEAR BKGD; Pregnancy, Urine Negative Negative; White Blood Cells 5-10 SEEN /hpf (0-5)
--- NOTE | 2023-08-11 08:20 | RAD_ITS ---
STUDY: X-RAY CHEST REASON FOR EXAM: Female, 42 years old. Cough TECHNIQUE: PA and lateral views of the chest. COMPARISON: Comparison is made with prior study April 12, 2020. FINDINGS: The lungs are clear and expanded. There is no demonstrated pleural abnormality. Normal size heart. Normal mediastinum and melisa. Normal visualized pulmonary arteries. Normal visualized aortic arch and descending thoracic aorta. Normal visualized thoracic spine. Normal visualized ribs, clavicles, and shoulders. There is no demonstrated abnormality of the visualized soft tissue structures of the upper abdomen. RAD/Chest PA and Lateral IMPRESSION: Normal x-ray examination of the chest. Electronically Signed: Jose Miguel Bone MD at 8:35 EDT ,
[2023-08-11] MEDS: Ketorolac 30 MG/ML Syringe IV (10:59)
== END 2023-08-11 11:20 | disposition home or self-care (01) ==
PROVIDERS: Emergency Provider Emergency Medicine; PCP Family Medicine; Visit Provider Emergency Medicine
DX: R10.11 Right upper quadrant pain (principal); R56.9 Unspecified convulsions; E11.9 Type 2 diabetes mellitus without complications; B34.9 Viral infection, unspecified; E78.5 Hyperlipidemia, unspecified; Z79.899 Other long term (current) drug therapy; Z79.84 Long term (current) use of oral hypoglycemic drugs; I47.10 Supraventricular tachycardia, unspecified; Z90.6 Acquired absence of other parts of urinary tract; R51.9 Headache, unspecified; R50.9 Fever, unspecified
CPT/HCPCS: 71046; 74177; 80048; 80076; 81001; 81025; 83690; 85025; 87631; 96361; 96374; 96375; 99282; J7030; Q9967; A4216; J2405

== ENCOUNTER 2024-02-12 09:17 | Inpatient (IN) | payer BC, SELFPAY ==
[2024-02-12] VITALS (14 sets, daily range): BP systolic 93–137; BP diastolic 57–91; PULSE 107–156; RESP 15–22; TEMP 36.9–39.7; O2SAT 95–100; BMI 31.5; BMI 33.6
--- NOTE | 2024-02-12 10:40 | EX.ED.DYSGE1 ---
HPI History of Present Illness Chief Complaint: Flank Pain Informant: patient Narrative Narrative: 43-year-old female presenting to the emergency room with right flank pain. Patient notes some associated nausea vomiting chills and subjective fever. Patient notes that she does not feel like she is emptying her bladder. She states that whenever she moves or takes a deep breath she has pain from the left flank up into her right shoulder. She has had 2 prior kidney stone surgeries in the past. She went to see primary care today who advised her to come to emergency. She is not on any anticoagulants. She has not had anything at this morning to mask a fever. She denies diarrhea. She notes chronic cough and no change in that [facility] Medical History Kidney stones Wears glasses Diabetes Heartburn Non-smoker Leg cramps History of echocardiogram Cardiology follow-up encounter SVT (supraventricular tachycardia) Asthma Back pain Asthma Fatigue Seizures Home Medications ?Medication ?Instructions ?Recorded ?Last Taken ?Type albuterol sulfate 90 mcg/actuation 2 puff inhalation Q6H PRN PRN 06/28/13 09/04/18 History aerosol inhaler Shortness Of Breath multivitamin,[id number] 27 1 tab PO DAILY health maintenance 06/28/13 09/04/18 History mg-0.4 mg tablet diazepam 5 mg tablet 5 mg PO BID PRN PRN seizure 03/27/19 Unknown History activity ascorbic acid (vitamin C) 500 mg 500 mg PO DAILY Check with primary 06/26/19 Unknown History tablet doctor levetiracetam 250 mg tablet 750 mg PO BID Check with primary 06/26/19 Unknown History doctor zolpidem 10 mg tablet 10 mg PO QHS PRN insomnia 06/26/19 Unknown History atorvastatin 40 mg tablet 40 mg PO QHS Check with primary 07/02/19 Unknown History doctor metformin 500 mg tablet 1,000 mg PO BID Check with primary 04/12/20 Unknown History doctor furosemide 40 mg tablet 40 mg PO DAILY #30 tabs 04/13/20 Unknown Rx metoprolol tartrate 100 mg tablet 150 mg (1.5 x 100 mg) PO BID SVT 04/22/21 Unknown Rx #90 tabs verapamil 120 mg 24 hr 120 mg PO DAILY #90 CAPSULES 01/14/22 Unknown Rx capsule,extended release phenazopyridine 200 mg tablet 200 mg PO TID PRN PRN Bladder 11/17/22 Unknown Rx (Pyridium) Spasms 7 days #30 tabs atorvastatin 80 mg tablet 80 mg PO QHS 08/11/23 Unknown History hydrochlorothiazide 12.5 mg capsule 12.5 mg PO DAILY 08/11/23 Unknown History Allergy/AdvReac Type Severity Reaction Status Date / Time cyclobenzaprine (From Allergy Intermediate Hives Verified 11/17/22 07:03 Flexeril) gabapentin Allergy Intermediate Hives Verified 11/17/22 07:03 meperidine (From Demerol) Allergy Intermediate passes out Verified 11/17/22 07:03 Penicillins Allergy Hives Verified 11/17/22 07:03 tramadol Allergy Hives Verified 11/17/22 07:03 Family History Mother COPD (chronic obstructive pulmonary disease) Heart disease Father , Age 69 Atrial fibrillation Sister , 36 years Atrial fibrillation Hypertension Heart disease Other Cancer Surgical History Hx of wisdom tooth extraction History of foot surgery (~1992) History of arthroscopy of left knee (~2002) History of ovarian cystectomy (~2008) History of knee surgery (~2003) Social History Smoking Status: Never smoker alcohol intake: current alcohol intake frequency: holidays/special occasions only Alcohol type: wine substance use type: does not use caffeine: No ROS ROS ED Constitutional Constitutional ED: Reports chills and fever(s); Denies weight loss Eyes Eyes: Denies change in vision or diplopia ENT ENT ED: Denies ear pain, rhinorrhea or sore throat Cardiovascular Cardiovascular: Denies chest pain, orthopnea, palpitations or racing heartbeat Respiratory/Chest Respiratory/Chest: Reports cough; Denies dyspnea or orthopnea Gastrointestinal Gastrointestinal: Reports nausea and vomiting; Denies abdominal pain or diarrhea Genitourinary Genitourinary ED: Denies dysuria, hematuria or urinary frequency Musculoskeletal Musculoskeletal: Reports other Details: Right flank pain ; Denies arthralgias or myalgias Integumentary Denies abscess or rash Neurologic Neurologic: Denies headache(s) or weakness Psychiatric Psychiatric: Denies anxiety, depression, suicidal ideation or suicidal thoughts Endocrine Endocrinology: Denies polydipsia, polyphagia or polyuria Allergic/Immunologic Allergic/Immunologic ED: Denies mouth swelling, tongue swelling or urticaria EXAM Physical Exam Const Vital Signs: 02/12/24 09:17 02/12/24 09:29 02/12/24 11:00 Temperature 99.4 F H 99.4 F H 98.4 F Temperature Source Oral Temporal Oral Pulse Rate 131 H 131 H 122 H Respiratory Rate 18 18 18 Blood Pressure 137/91 H 137/91 H 118/69 Blood Pressure Mean 106 106 85 Pulse Ox 97 97 95 Oxygen Delivery Method Room Air Room Air Room Air 02/12/24 12:20 02/12/24 13:00 02/12/24 14:00 Temperature 98.9 F 98.7 F 99.9 F H Temperature Source Temporal Oral Oral Pulse Rate 119 H 118 H 123 H Respiratory Rate 22 H 18 18 Blood Pressure 98/64 96/57 L 109/76 Blood Pressure Mean 75 70 87 Pulse Ox 100 96 98 Oxygen Delivery Method Room Air Room Air 02/12/24 14:24 02/12/24 15:00 Temperature 100.5 F H 100.5 F H Temperature Source Oral Oral Pulse Rate 143 H Respiratory Rate 16 Blood Pressure 127/81 H Blood Pressure Mean 96 Pulse Ox 96 Oxygen Delivery Method Room Air Positive well nourished, well developed and obese General Appearance ED: well developed and NAD Nutritional Appearance: obese HEENT Reports normocephalic, head/scalp atraumatic and moist mucous membranes Eyes PERRL and EOMs intact bilaterally Neck no lymphadenopathy, supple and no JVD Resp normal respiratory effort and clear to auscultation bilaterally Cardio regular rate, regular rhythm and no murmurs Rate: tachycardic GI normal to inspection, nondistended, normoactive bowel sounds and non-tender Palpation: soft Back/Spine normal ROM General Back: CVA tenderness right Extremity normal to inspection General Extremety ED: Negative for edema General Extremity: Negative for edema Neuro oriented x3 and CN's II-XII intact bilaterally Sensorium / Orientation: alert Motor Exam: strength 5/5 throughout Psych mental status grossly normal Mood & Affect: Negative for depressed or tearful Skin no rashes or lesions noted and no wounds Sepsis Attestation Sepsis Alert: Yes Sepsis Attestation: Sepsis Ruled Out Date exam was performed: 02/12/24 Time exam was performed: 14:00 Possible Source of Sepsis: Genitourinary MDM MDM MDM Narrative Medical decision making narrative: Differential diagnosis includes kidney stone acute kidney injury pyelonephritis UTI cholecystitis colitis sepsis Patient's oral temperature was 102.9 on my examination. Patient began receiving IV fluids Tylenol Toradol morphine and Zofran. White count elevated 14.9 hemoglobin 12.5 platelet count of 419 lactic acid normal at 1.8 glucose 399 creatinine 1.08 with a BUN of 20 sodium low at 122 urinalysis 10-25 white cells 3+ bacteria positive nitrates blood and urine culture sent patient received a dose of Rocephin. The hospital currently does not have urine or blood test and therefore a quantitative hCG had to be performed which was negative. With this being negative a CT of the abdomen pelvis was obtained. This was read by radiology reviewed by myself. This demonstrates area of concern for pyelonephritis on the right kidney. No evidence of ureterolithiasis at this time. Patient's temperature returned and she again received Tylenol. Also gave her her morning dose of Keppra. Plan will be admission into hospital History & Record Review Discussion w/independent historian: Patient Lab Data Attestation: I reviewed the patient's lab results. Labs: Laboratory Results - last 24 hr 02/12/24 02/12/24 02/12/24 10:55 11:16 15:16 WBC 14.9 H RBC 4.02 L Hgb 12.5 Hct 36.7 L MCV 91.3 MCH 31.1 MCHC 34.1 RDW Std Deviation 42.2 RDW Coeff of Yoni 12.8 Plt Count 419 MPV 10.7 Immature Gran % (Auto) 1.800 H Neut % (Auto) 85.4 H Lymph % (Auto) 7.2 L [place] % (Auto) 4.9 Eos % (Auto) 0.1 Baso % (Auto) 0.6 Absolute Neuts (auto) 12.7 H Absolute Lymphs (auto) 1.08 Nucleated RBC % 0 PT 14.7 INR 1.1 APTT 29.7 Sodium 122 L Potassium 4.7 Chloride 90 L Carbon Dioxide 20.0 L Anion Gap 13 BUN 20 H Creatinine 1.08 H Estim Creat Clear Calc 63.83 Est GFR (MDRD) Af Amer 72 Est GFR (MDRD) Non-Af 59 L BUN/Creatinine Ratio 18.5 Glucose 399 H Lactic Acid 1.8 Calcium 10.0 Total Bilirubin 0.80 Direct Bilirubin 0.07 AST 26 ALT 62 H Alkaline Phosphatase 68 Total Protein 8.2 Albumin 3.3 Globulin 4.9 H HCG, Quant < 1 Serum , Qual Cancelled Urine Color Yellow Urine Clarity Clear Urine pH 5.0 Ur Specific [place] 1.015 Urine Protein 500 H Urine Glucose (UA) 1000 H Urine Ketones 5 H Urine Occult Blood 10 H Urine Nitrite Positive H Urine Bilirubin Negative Urine Urobilinogen Normal Ur Leukocyte Esterase 25 H Urine RBC 0 SEEN Urine WBC 10-25 SEEN Ur Squamous Epith Cells 0 SEEN Urine Bacteria 3+ Urine Mucus 0 SEEN Radiography Diagnostic Testing: Clinical Impression(s) from Imaging Studies Abdomen/Pelvis CT 02/12/24 14:00 IMPRESSION: A pattern megaly. Diffuse fatty infiltration of the liver. 3.1 cm x 2.1 cm round hypodensity in the upper mid lateral portion of the right kidney as described. Correlation with ultrasound is recommended to rule out possible localized pyelonephritis. Stable 3 mm nonobstructive calculus in the upper midportion of the right kidney. 2.6 m cyst in the right ovary. Electronically Signed: Jose Miguel Bone MD at 14:44 EDT , Management Discussion w/another healthcare provider: Hospitalist (Dr. Shah) Discharge Plan Dx/Rx/DC Orders Clinical Impression: Pyelonephritis, Right flank pain, Hyponatremia Disposition Disposition: Acute Care Hospital [facility]
[2024-02-12] MEDS: Ketorolac 30 MG/ML Syringe IV (10:46)
[2024-02-12] MEDS: Acetaminophen 500 MG Tablet 1000 MG PO ×2 (10:46→14:54)
[2024-02-12] MEDS: Ondansetron 4 MG/2 ML Vial IV (10:46)
[2024-02-12] MEDS: Morphine 4 MG/ML Syringe IV ×3 (10:46→16:08)
[2024-02-12] MEDS: 0.9% Normal Saline (1000mL) 1,000 ML 1000 ML IV (10:47)
[2024-02-12 11:00] LABS: Mucous, Urine 0 SEEN /hpf (<or=2+); Red Blood Cells-Urine 0 SEEN /hpf (0-5); Squamous Epithelial Cells - UA 0 SEEN /hpf (5-10)
[2024-02-12 11:03] LABS: Color, Urine Yellow (Yellow); Glucose, Dipstick 1000 mg/dl (Normal); Ketone-Dipstick 5 mg/dl (Negative); Leukocyte Esterase-Dipstick 25 /ul (Negative); Nitrite-Dipstick Positive (Negative); Occult Blood-Urine 10 /ul (Negative); Protein-Dipstick 500 mg/dl (Negative); Specific Gravity, Urine 1.015 (1.002-1.030); Urine Bilirubin Dipstick Negative (Negative); Urine Clarity Clear (Clear); Urine Urobilinogen Normal (Normal)
[2024-02-12 11:04] LABS: Absolute Lymphocyte Count 1.08 X10^3/uL (0.83-4.51); Absolute Neutrophil Count 12.7 X10^3/uL (2.0-7.7); Basophil# 0.09 X10^3/uL; Basophil% 0.6 % (0-1); Eosinophil# 0.02 X10^3/uL; Eosinophils% 0.1 % (0-5); Hematocrit 36.7 % (37-47); Hemoglobin 12.5 g/dL (12.0-15.0); Lymphocyte # 1.08 X10^3/ul (0.83-4.51); Lymphocyte % 7.2 % (19-41); Mean Corp Hgb Conc 34.1 g/dL (32-36); Mean Corpuscular Hgb 31.1 pg (27.0-32.0); Mean Corpuscular Volume 91.3 fL (81-99); Mean Platelet Vol. 10.7 fl (6.2-12.0); Monocyte# 0.73 X10^3/uL; Monocyte% 4.9 % (0-10); NRBC Flagged by Analyzer 0 % (0-5); Neutrophil # 12.74 X10^3/uL (2.7-7.7); Neutrophil % 85.4 % (47-70); Platelet Count 419 K/mm3 (150-450); RBC Distribution Width CV 12.8 % (11.6-14.6); RBC Distribution Width SD 42.2 fl (35.1-43.9); Red Blood Count 4.02 M/mm3 (4.2-5.4); White Blood Count 14.9 K/mm3 (4.4-11.0)
[2024-02-12 11:09] LABS: Bacteria 3+ /hpf (None Seen); White Blood Cells 10-25 SEEN /hpf (0-5)
[2024-02-12] MEDS: Ceftriaxone 1 GM/50 ML BAG IV (11:41)
[2024-02-12 11:43] LABS: Albumin, Serum 3.3 g/dL (3.2-5.0); Alkaline Phosphatase 68 U/L (45-117); Anion Gap 13 (5-15); BUN 20 mg/dL (7-18); BUN/Creat Ratio 18.5 RATIO (10-20); Bilirubin, Direct 0.07 mg/dL (0.00-0.30); Chloride 90 mmol/L (98-107); Creatinine, Serum 1.08 mg/dL (0.55-1.02); EST Glomerular Filtration Rate 59 mL/min (>60); Est Glom Filt Rate - Afr Amer 72 mL/min (>60); Estimated Creatinine Clearance 63.83 ml/min; Globulin 4.9 g/dL (2.2-4.2); Glucose 399 mg/dL (74-106); Potassium 4.7 mmol/L (3.5-5.1); Protein, Total 8.2 g/dL (6.4-8.2); Sodium Level 122 mmol/L (136-145)
[2024-02-12 12:40] LABS: Lactic Acid 1.8 mmol/L (0.4-1.9)
[2024-02-12 13:33] LABS: AST(SGOT) 26 U/L (15-37); Alanine Aminotransfer ALT/SGPT 62 U/L (13-56)
[2024-02-12 13:44] LABS: hCG Titer Quant., Serum < 1 mIU/mL (1-3)
[2024-02-12] MEDS: 0.9% Normal Saline (1000mL) 1,000 ML 999 ML IV (13:56)
--- NOTE | 2024-02-12 14:00 | CT_ITS ---
STUDY: CT ABDOMEN AND PELVIS WITH CONTRAST REASON FOR EXAM: Female, 43 years old. Right flank pain renal abscesss RADIATION DOSAGE (If Supplied By Facility): CTDIvol = ( 15.41 ) mGy, DLP = ( 1103.87 ) mGycm TECHNIQUE: Transaxial images were obtained from the dome of the diaphragm to the symphysis pubis without oral contrast. IV 100mL Isovue-300 was administered. Sagittal and coronal images were reconstructed. Individualized dose optimization techniques were used for this CT. COMPARISON: Comparison is made with prior study dated August 11, 2023. FINDINGS: The visualized lung bases are unremarkable. The visualized portions of the heart are within normal limits. There is decreased attenuation of the liver consistent with steatosis. Hepatomegaly. Normal gallbladder and extrahepatic biliary system. Normal spleen. Normal pancreas. Normal bilateral adrenal glands. Stable 3 mm nonobstructive calculus in the midpole calyx of the right kidney. There is a 3.1 cm x 2.1 cm rounded hypodensity in the upper mid lateral portion of the right kidney. With the patient''s history of possible renal abscess, this may represent a focal area of pyelonephritis. Correlation with ultrasound recommended for further evaluation. Normal left kidney. Normal visualized stomach. Normal small intestine. Normal colon. The appendix is visualized and appears normal. Normal abdominal aorta. Normal inferior vena cava. Normal retroperitoneum. Normal urinary bladder. There is a 2.6 cm cyst in the right ovary. Stable small bilateral benign-appearing inguinal lymph nodes. Normal osseous structures. CT/Abdomen/Pelvis W IV Cont ONLY IMPRESSION: A pattern megaly. Diffuse fatty infiltration of the liver. 3.1 cm x 2.1 cm round hypodensity in the upper mid lateral portion of the right kidney as described. Correlation with ultrasound is recommended to rule out possible localized pyelonephritis. Stable 3 mm nonobstructive calculus in the upper midportion of the right kidney. 2.6 m cyst in the right ovary. Electronically Signed: Jose Miguel Bone MD at 14:44 EDT ,
--- NOTE | 2024-02-12 14:46 | ED.RN ---
PT FEVER WAXING AND WANING, HAS CHILLS/ SHIVERING. PT CONCERNED ABOUT NOT HAVING SEIZURE MEDS TODAY. DR GOTTI, VERBAL ORDER FOR ROBB
[2024-02-12] MEDS: levETIRAcetam 750 MG Tablet PO ×2 (15:20→21:59)
--- NOTE | 2024-02-12 15:31 | PCM.HP.STD ---
HPI - General General Date of Service: 02/12/24 Chief Complaint: R flank pain, chills HPI Narrative BÁRBARA NO, is a 43 F with a history of seizure disorder, diabetes, kidney stones, SVT who presented [facility] ED 02/12/2024 from her PCPs office for right flank pain and fever/chills. In the ED patient febrile with temperature of 102.9, tachycardic, UA suggestive of UTI, CT abdomen suggestive of right-sided pyelonephrosis, patient noted to have a white blood cell count of 14.9. She was given IV fluids, pain control, IV Rocephin hospitalist contacted for admission. Patient evaluated at bedside and she reports she started feeling unwell Monday night and since yesterday she has had some nausea and vomiting with right sided flank pain and what sounds to be some urinary hesitancy. Has had some headache due to then nausea and vomiting and chronically has cough, stuffy nose, sore throat. Has had some increased shortness of breath with all of this and has been using her albuterol inhaler, used twice and this did seem to help. Patient presently having rigors and chills and reports that initially improved with Tylenol but has begun to worsen again. No chest pain, right flank pain but no other abdominal pain, no diarrhea. [facility] Medical History Kidney stones Wears glasses Diabetes Heartburn Non-smoker Leg cramps History of echocardiogram Cardiology follow-up encounter SVT (supraventricular tachycardia) Asthma Back pain Asthma Fatigue Seizures Home Medications ?Medication ?Instructions ?Recorded ?Last Taken ?Type albuterol sulfate 90 mcg/actuation 2 puff inhalation Q6H PRN PRN 06/28/13 09/04/18 History aerosol inhaler Shortness Of Breath multivitamin,ov-ordu-zawwbioi 27 1 tab PO DAILY health maintenance 06/28/13 09/04/18 History mg-0.4 mg tablet diazepam 5 mg tablet 5 mg PO BID PRN PRN seizure 03/27/19 Unknown History activity ascorbic acid (vitamin C) 500 mg 500 mg PO DAILY Check with primary 06/26/19 Unknown History tablet doctor levetiracetam 250 mg tablet 750 mg PO BID Check with primary 06/26/19 Unknown History doctor zolpidem 10 mg tablet 10 mg PO QHS PRN insomnia 06/26/19 Unknown History atorvastatin 40 mg tablet 40 mg PO QHS Check with primary 07/02/19 Unknown History doctor metformin 500 mg tablet 1,000 mg PO BID Check with primary 04/12/20 Unknown History doctor furosemide 40 mg tablet 40 mg PO DAILY #30 tabs 04/13/20 Unknown Rx metoprolol tartrate 100 mg tablet 150 mg (1.5 x 100 mg) PO BID SVT 04/22/21 Unknown Rx #90 tabs verapamil 120 mg 24 hr 120 mg PO DAILY #90 CAPSULES 01/14/22 Unknown Rx capsule,extended release phenazopyridine 200 mg tablet 200 mg PO TID PRN PRN Bladder 11/17/22 Unknown Rx (Pyridium) Spasms 7 days #30 tabs atorvastatin 80 mg tablet 80 mg PO QHS 08/11/23 Unknown History hydrochlorothiazide 12.5 mg capsule 12.5 mg PO DAILY 08/11/23 Unknown History Allergy/AdvReac Type Severity Reaction Status Date / Time cyclobenzaprine (From Allergy Intermediate Hives Verified 11/17/22 07:03 Flexeril) gabapentin Allergy Intermediate Hives Verified 11/17/22 07:03 meperidine (From Demerol) Allergy Intermediate passes out Verified 11/17/22 07:03 Penicillins Allergy Hives Verified 11/17/22 07:03 tramadol Allergy Hives Verified 11/17/22 07:03 Family History Mother COPD (chronic obstructive pulmonary disease) Heart disease Father , Age 69 Atrial fibrillation Sister , 36 years Atrial fibrillation Hypertension Heart disease Other Cancer Surgical History Hx of wisdom tooth extraction History of foot surgery (~1992) History of arthroscopy of left knee (~2002) History of ovarian cystectomy (~2008) History of knee surgery (~2003) Social History Smoking Status: Never smoker alcohol intake: current alcohol intake frequency: holidays/special occasions only Alcohol type: wine substance use type: does not use caffeine: No ROS ROS Narrative General: Fevers and chills HENT: Dull headache, chronic stuffy nose, chronic sore throat EYES: Denies changes in vision Resp: Has had a little bit of shortness of breath with her asthma during this event, chronic cough Cardiac: Denies chest pain GI: Denies abdominal pain, denies changes in bowel, has been having nausea and vomiting : Right-sided flank pain, some urinary hesitancy Extremity: Denies swelling MSK: Denies weakness Neuro: Denies any numbness/tingling Heme: Denies any bleeding or bruising Skin: Denies rashes Psychiatric: No complaints voiced Vital Signs Vital Signs Vital Signs: 02/12/24 09:17 02/12/24 09:29 02/12/24 11:00 Temperature 99.4 F H 99.4 F H 98.4 F Temperature Source Oral Temporal Oral Pulse Rate 131 H 131 H 122 H Respiratory Rate 18 18 18 Blood Pressure 137/91 H 137/91 H 118/69 Blood Pressure Mean 106 106 85 Pulse Ox 97 97 95 Oxygen Delivery Method Room Air Room Air Room Air 02/12/24 12:20 02/12/24 13:00 02/12/24 14:00 Temperature 98.9 F 98.7 F 99.9 F H Temperature Source Temporal Oral Oral Pulse Rate 119 H 118 H 123 H Respiratory Rate 22 H 18 18 Blood Pressure 98/64 96/57 L 109/76 Blood Pressure Mean 75 70 87 Pulse Ox 100 96 98 Oxygen Delivery Method Room Air Room Air 02/12/24 14:24 02/12/24 15:00 Temperature 100.5 F H 100.5 F H Temperature Source Oral Oral Pulse Rate 143 H Respiratory Rate 16 Blood Pressure 127/81 H Blood Pressure Mean 96 Pulse Ox 96 Oxygen Delivery Method Room Air Weight Weight: 75.75 kg Body Mass Index (BMI) 31.5 Physical Exam Narrative General: Alert, oriented, obvious full body rigors HEENT: Atraumatic, normocephalic Eyes: Anicteric, normal conjunctiva, extraocular movements grossly intact Neck: Supple Respiratory: A couple scattered wheezes but normal respiratory effort Cardiovascular: Tachycardic but regular rate GI: Soft, nontender, nondistended, does have some right-sided flank pain Extremities: No edema Musculoskeletal: Moving all extremities Neuro: No overt focal neurological deficits Skin: No rashes appreciated Psych: Cooperative Results Lab / Micro Data 02/12/24 10:55 02/12/24 10:55 Labs: Laboratory Results - last 24 hr 02/12/24 10:55: WBC 14.9 H, RBC 4.02 L, Hgb 12.5, Hct 36.7 L, MCV 91.3, MCH 31.1, MCHC 34.1, RDW Std Deviation 42.2, RDW Coeff of Yoni 12.8, Plt Count 419, MPV 10.7, Immature Gran % (Auto) 1.800 H, Neut % (Auto) 85.4 H, Lymph % (Auto) 7.2 L, [place] % (Auto) 4.9, Eos % (Auto) 0.1, Baso % (Auto) 0.6, Absolute Neuts (auto) 12.7 H, Absolute Lymphs (auto) 1.08, Nucleated RBC % 0, Sodium 122 L, Potassium 4.7, Chloride 90 L, Carbon Dioxide 20.0 L, Anion Gap 13, BUN 20 H, Creatinine 1.08 H, Estim Creat Clear Calc 63.83, Est GFR (MDRD) Af Amer 72, Est GFR (MDRD) Non-Af 59 L, BUN/Creatinine Ratio 18.5, Glucose 399 H, Calcium 10.0, Total Bilirubin 0.80, Direct Bilirubin 0.07, AST 26, ALT 62 H, Alkaline Phosphatase 68, Total Protein 8.2, Albumin 3.3, Globulin 4.9 H, HCG, Quant < 1, Serum , Qual Cancelled, Urine Color Yellow, Urine Clarity Clear, Urine pH 5.0, Ur Specific [place] 1.015, Urine Protein 500 H, Urine Glucose (UA) 1000 H, Urine Ketones 5 H, Urine Occult Blood 10 H, Urine Nitrite Positive H, Urine Bilirubin Negative, Urine Urobilinogen Normal, Ur Leukocyte Esterase 25 H, Urine RBC 0 SEEN, Urine WBC 10-25 SEEN, Ur Squamous Epith Cells 0 SEEN, Urine Bacteria 3+, Urine Mucus 0 SEEN 02/12/24 11:16: Lactic Acid 1.8 Imaging Radiology Impression Abdomen/Pelvis CT 02/12/24 14:00 IMPRESSION: A pattern megaly. Diffuse fatty infiltration of the liver. 3.1 cm x 2.1 cm round hypodensity in the upper mid lateral portion of the right kidney as described. Correlation with ultrasound is recommended to rule out possible localized pyelonephritis. Stable 3 mm nonobstructive calculus in the upper midportion of the right kidney. 2.6 m cyst in the right ovary. Electronically Signed: Jose Miguel Bone MD at 14:44 EDT , Assessment & Plan Assessment/Plan (1) Pyelonephritis: PLAN: Plan # Suspected right-sided pyelonephrosis -CT scan with 3.1 cm x 2.1 cm round hypodensity in upper mid lateral portion of right kidney and was recommended to correlate ultrasound to rule out possible localized pyelonephritis -Will obtain kidney ultrasound -UA suggestive of infection -Patient tachycardic and febrile in ED, per checkout patient had a temperature of 102.9 at 1 point but it does not appear that this reading was recorded in EMR, patient also with an elevated white blood cell count of 14 with left shift -Urine and blood cultures pending -Received 2 L in the ED, will continue gentle IV fluids at this time -Patient started on Rocephin, will continue at this time -No definitive abscess- Pending renal ultrasound and clinical progression may need to consider drainage if discrete abscess present and patient not improving -Patient does have history of kidney stones, has nonobstructive stone on CT and follows outpatient with Dr. Harris, treat underlying infection and will ultimately benefit from following up with her urologist -Does have bump in creatinine and BUN however no values for the past 6 months so unclear if true KHADIJAH, patient being hydrated, repeat in the a.m. and hold patient's Lasix and HCTZ # Tachycardia/history of SVT -Suspect tachycardia largely due to patient's underlying infection and elevated temperature in combination with slight volume depletion and she has not been able to take her medicines since yesterday (takes verapamil and metoprolol) -Does not presently seem to be SVT -Will admit to telemetry -Heart rate 130s to 150s and is regular -Patient did have BP that dipped earlier in the ED after fever initially broke, will give patient slightly lower dose of home metoprolol and can always escalate dosing but will watch blood pressure and heart rate before increasing dose further or resuming verapamil -Check TSH # Hyponatremia -Corrected sodium for glucose is 129 -Patient received IV fluids -Will hold home Lasix and home hydrochlorothiazide -Repeat in a.m., if not improving with present measures will obtain further workup #Type 2 diabetes mellitus -Glucose 399 in the ED, patient reports she checks her glucose at home and it has been closer to 100 recently, suspect this secondary to infection -Glucose checks and sliding scale insulin -Holding home metformin -Check a.m. A1c as this may affect decision moving forward about additional diabetes medications at home #R sided ovarian cyst -Found incidentally on CT, noted to be measured at 2.6 -No acute management necessary at this time -hCG negative # History of seizure disorder -Continue Keppra #DVT ppx: Lovenox subcu Ankita Shah MD Time spent in the patient's overall evaluation,decision-making process, review of diagnostic data, adjustment of management, discussion with other providers, nursing nursing and ancillary staff involved in patient's care documentation, 76 Minutes Charges/Coding Visit Charges Inpatient E&M: 10577 Init Hosp L3
[2024-02-12 15:38] LABS: International Normalized Ratio 1.1; Prothrombin Time (Protime)PT. 14.7 SECONDS (11.7-14.9)
[2024-02-12 15:39] LABS: Partial Thromboplast Time 29.7 Seconds (24.1-36.2)
--- NOTE | 2024-02-12 15:45 | US_ITS ---
INDICATION: Concern for R sided pyelonephritis EXAMINATION: Ultrasound US Kidney(s) complete (eg, kidneys and bladder) TECHNIQUE: Rodriguez scale and color doppler images were obtained of the kidneys. COMPARISON: FINDINGS: RIGHT KIDNEY: 12.8 x 5.0 x 6.0 cm. The cortex is 16mm. There is no hydronephrosis. No shadowing calculus, focal lesion or perinephric collection is demonstrated. LEFT KIDNEY: 11.8 x 4.8 x 5.4 cm. The cortex is 13 mm. There is no hydronephrosis. No shadowing calculus, focal lesion or perinephric collection is demonstrated. URINARY BLADDER: Partially distended with a volume of 74 cc. Mild wall thickening measuring 4 mm. Nonvisualization of the ureteral jets. US/Kidney and Bladder IMPRESSION: No acute pathology is noted. Electronically Signed: Tadeo Miner DO at 16:36 EDT ,
[2024-02-12] MEDS: Ketorolac 30 MG/ML Syringe IM (16:08)
[2024-02-12] MEDS: Metoprolol Tartrate 100 MG Tablet PO (16:49)
[2024-02-12] MEDS: Insulin Lispro 100 UNIT/ML INSULN.PEN SC ×2 (16:50→21:57)
[2024-02-12] MEDS: 0.9% Normal Saline (1000mL) 1,000 ML 50 ML IV (17:16)
[2024-02-12 17:34] LABS: Bedside Glucose 305 mg/dL (74-106)
[2024-02-12] MEDS: Morphine 2 MG/ML Syringe IV ×2 (19:03→22:08)
[2024-02-12] MEDS: Atorvastatin Calcium 80 MG Tablet PO (21:59)
[2024-02-12] MEDS: diazePAM 5 MG Tablet PO (22:00)
[2024-02-12] MEDS: 0.9% Saline Lock 10 ML Syringe IV (22:08)
[2024-02-12 22:29] LABS: Bedside Glucose 416 mg/dL (74-106)
[2024-02-13] VITALS (14 sets, daily range): BP systolic 91–126; BP diastolic 44–81; PULSE 90–135; RESP 16–20; TEMP 37.1–39.5; O2SAT 91–98
[2024-02-13] MEDS: 0.9% Saline Lock 10 ML Syringe IV ×7 (01:27→21:25)
[2024-02-13] MEDS: Ketorolac 15 MG/ML Vial IV ×3 (01:27→17:22)
[2024-02-13] MEDS: Ondansetron 4 MG/2 ML Vial IV ×3 (01:27→21:22)
--- NOTE | 2024-02-13 03:27 | NURSING ---
This pt had an episode of fever of 103.1, tachycardiac at 140 bmp, and emesis. At 01:27 gave IV zofran and IV Toradol. After rechecking vitals at 03:10 HR still tachy at 125-128. Temp decreased to 101 with a BP of 97/44. Pt wanted somthing else for pain, but MAP was less than 65. After speaking with the MD, a 500cc bolus was ordered and 2mg of IV morphine is acceptable. Will give these and reassess the pt.
[2024-02-13] MEDS: Morphine 2 MG/ML Syringe IV ×5 (03:44→21:22)
[2024-02-13] MEDS: 0.9% Normal Saline (500mL Bag) 500 ML 999 ML IV (03:46)
[2024-02-13 05:56] LABS: Absolute Lymphocyte Count 1.28 X10^3/uL (0.83-4.51); Absolute Neutrophil Count 7.1 X10^3/uL (2.0-7.7); Basophil# 0.05 X10^3/uL; Basophil% 0.5 % (0-1); Hematocrit 28.7 % (37-47); Hemoglobin 9.8 g/dL (12.0-15.0); Lymphocyte # 1.28 X10^3/ul (0.83-4.51); Lymphocyte % 13.9 % (19-41); Mean Corp Hgb Conc 34.1 g/dL (32-36); Mean Corpuscular Hgb 32.1 pg (27.0-32.0); Mean Corpuscular Volume 94.1 fL (81-99); Mean Platelet Vol. 10.5 fl (6.2-12.0); Monocyte# 0.56 X10^3/uL; Monocyte% 6.1 % (0-10); NRBC Flagged by Analyzer 0 % (0-5); Neutrophil # 7.06 X10^3/uL (2.7-7.7); Neutrophil % 76.4 % (47-70); Platelet Count 291 K/mm3 (150-450); RBC Distribution Width CV 13.2 % (11.6-14.6); RBC Distribution Width SD 45.2 fl (35.1-43.9); Red Blood Count 3.05 M/mm3 (4.2-5.4); White Blood Count 9.2 K/mm3 (4.4-11.0)
[2024-02-13] MEDS: Insulin Lispro 100 UNIT/ML INSULN.PEN SC ×4 (06:33→21:49)
[2024-02-13] MEDS: Acetaminophen 325 MG Tablet 650 MG PO ×3 (06:33→21:23)
[2024-02-13 06:59] LABS: Bedside Glucose 270 mg/dL (74-106)
[2024-02-13 07:02] LABS: ALB/GLOB Ratio 0.6 RATIO (0.9-2.4); AST(SGOT) 23 U/L (15-37); Alanine Aminotransfer ALT/SGPT 46 U/L (13-56); Albumin, Serum 2.2 g/dL (3.2-5.0); Alkaline Phosphatase 49 U/L (45-117); Anion Gap 6 (5-15); BUN 22 mg/dL (7-18); BUN/Creat Ratio 23.6 RATIO (10-20); Calcium,Total 7.9 mg/dL (8.5-10.1); Chloride 100 mmol/L (98-107); Creatinine, Serum 0.93 mg/dL (0.55-1.02); EST Glomerular Filtration Rate 70 mL/min (>60); Est Glom Filt Rate - Afr Amer 85 mL/min (>60); Estimated Creatinine Clearance 76.66 ml/min; Globulin 3.5 g/dL (2.2-4.2); Glucose 341 mg/dL (74-106); Magnesium 1.5 mg/dL (1.6-2.6); Potassium 4.9 mmol/L (3.5-5.1); Protein, Total 5.7 g/dL (6.4-8.2); Sodium Level 131 mmol/L (136-145)
[2024-02-13 08:24] LABS: Hemoglobin A1c 8.3 % (3.8-5.6)
--- NOTE | 2024-02-13 09:08 | PN.HOSP_ITS ---
Reason for Visit Reason for Visit: Diagnoses Tubulo-interstitial nephritis, not specified as acute or chronic (02/12/24) Subjective Subjective Still with fever and diaphoresis. Still with right flank pain. Objective Data Objective Data Vital Signs: Vital Signs Temp Pulse Resp BP Pulse Ox O2 Del Method 37.2 C 116 H 18 110/81 H 96 Room Air 02/13/24 07:45 02/13/24 06:33 02/13/24 06:33 02/13/24 06:33 02/13/24 06:33 02/13/24 06:33 Oxygen Delivery Method Room Air Weight: 80.8 kg Body Mass Index (BMI) 33.6 Intake & Output: Intake and Output for Last 24 Hours 02/11/24 02/12/24 02/13/24 23:59 23:59 23:59 Intake Total 2049 1255 / 1255 Balance 2049 1255 / 1255 Lab / Micro Data 02/13/24 05:39 02/13/24 05:39 Labs: Laboratory Results - last 24 hr 02/12/24 10:55: WBC 14.9 H, RBC 4.02 L, Hgb 12.5, Hct 36.7 L, MCV 91.3, MCH 31.1, MCHC 34.1, RDW Std Deviation 42.2, RDW Coeff of Yoni 12.8, Plt Count 419, MPV 10.7, Immature Gran % (Auto) 1.800 H, Neut % (Auto) 85.4 H, Lymph % (Auto) 7.2 L, [place] % (Auto) 4.9, Eos % (Auto) 0.1, Baso % (Auto) 0.6, Absolute Neuts (auto) 12.7 H, Absolute Lymphs (auto) 1.08, Nucleated RBC % 0, Sodium 122 L, Potassium 4.7, Chloride 90 L, Carbon Dioxide 20.0 L, Anion Gap 13, BUN 20 H, C reatinine 1.08 H, Estim Creat Clear Calc 63.83, Est GFR (MDRD) Af Amer 72, Est GFR (MDRD) Non-Af 59 L, BUN/Creatinine Ratio 18.5, Glucose 399 H, Calcium 10.0, Total Bilirubin 0.80, Direct Bilirubin 0.07, AST 26, ALT 62 H, Alkaline Phosphatase 68, Total Protein 8.2, Albumin 3.3, Globulin 4.9 H, HCG, Quant < 1, Serum , Qual Cancelled, Urine Color Yellow, Urine Clarity Clear, Urine pH 5.0, Ur Specific [place] 1.015, Urine Protein 500 H, Urine Glucose (UA) 1000 H, Urine Ketones 5 H, Urine Occult Blood 10 H, Urine Nitrite Positive H, Urine Bilirubin Negative, Urine Urobilinogen Normal, Ur Leukocyte Esterase 25 H, Urine RBC 0 SEEN, Urine WBC 10-25 SEEN, Ur Squamous Epith Cells 0 SEEN, Urine Bacteria 3+, Urine Mucus 0 SEEN 02/12/24 11:16: Lactic Acid 1.8 02/12/24 15:16: PT 14.7, INR 1.1, APTT 29.7 02/12/24 16:42: POC Glucose 305 H 02/12/24 21:56: POC Glucose 416 H 02/13/24 05:39: WBC 9.2, RBC 3.05 L, Hgb 9.8 L, Hct 28.7 L, MCV 94.1, MCH 32.1 H , MCHC 34.1, RDW Std Deviation 45.2 H, RDW Coeff of Yoni 13.2, Plt Count 291, MPV 10.5, Immature Gran % (Auto) 3.100 H, Neut % (Auto) 76.4 H, Lymph % (Auto) 13.9 L, [place] % (Auto) 6.1, Eos % (Auto) 0.0, Baso % (Auto) 0.5, Absolute Neuts (auto) 7.1, Absolute Lymphs (auto) 1.28, Nucleated RBC % 0, Sodium 131 L, Potassium 4.9, Chloride 100, Carbon Dioxide 24.0, Anion Gap 6, BUN 22 H, Creatinine 0.93, Estim Creat Clear Calc 76.66, Est GFR (MDRD) Af Amer 85, Est GFR (MDRD) Non-Af 70, BUN/Creatinine Ratio 23.6 H, Glucose 341 H, Hemoglobin A1c 8.3 H, Calcium 7.9 L, Magnesium 1.5 L, Total Bilirubin 0.60, AST 23, ALT 46, Alkaline Phosphatase 49, Total Protein 5.7 L, Albumin 2.2 L, Globulin 3.5, A lbumin/Globulin Ratio 0.6 L, TSH 0.410 10/22/24 06:32: POC Glucose 270 H Micro: Microbiology 02/12/24 10:55 Blood Culture (Wb) - Anticubital Left Blood Culture - Preliminary Gram negative mandy 02/12/24 10:55 Urine, Clean Catch Urine Culture - Preliminary Presumptive E. coli Radiography Diagnostic Testing: Radiology Impression Abdomen/Pelvis CT 02/12/24 14:00 IMPRESSION: A pattern megaly. Diffuse fatty infiltration of the liver. 3.1 cm x 2.1 cm round hypodensity in the upper mid lateral portion of the right kidney as described. Correlation with ultrasound is recommended to rule out possible localized pyelonephritis. Stable 3 mm nonobstructive calculus in the upper midportion of the right kidney. 2.6 m cyst in the right ovary. Electronically Signed: Jose Miguel Bone MD at 14:44 EDT , Renal Ultrasound 02/12/24 15:45 IMPRESSION: No acute pathology is noted. Electronically Signed: Tadeo Miner DO at 16:36 EDT , Physical Exam Const alert and no apparent distress Constitutional Narrative: diaphoretic. HEENT head/scalp atraumatic and moist oral mucous membranes Resp normal respiratory effort, no retractions, no use of accessory muscles and clear to auscultation bilaterally Resp Narrative: right CVA tenderness. Cardio regular rate, regular rhythm, S1 normal heart sound and S2 normal heart sound GI normal to inspection, nondistended, normoactive bowel sounds, soft to palpation, non-tender and non-distended Extremity normal to inspection and full ROM Neuro Sensorium / Orientation: awake and alert Assessment & Plan Assessment/Plan (1) Pyelonephritis: PLAN: Plan Acute right pyelonephrosis * CT scan with 3.1 cm x 2.1 cm round hypodensity in upper mid lateral portion of right kidney and was recommended to correlate ultrasound to rule out possible localized pyelonephritis. US negative. * Abx with CTX * Follow up cultures Tachycardia * due to underlying infection. qSOFA 1, so not septic based on SEP-3 criteria. * h/o SVT and takes metoprolol tartrate 100 BID. hyponatremia * slightly improved. monitor. DM2: * uncontrolled. exacerbated by underlying illness. * a1c 8.3 * metformin held give IV contrast * on SSI. Seizure d/o * continue levetiracetam VTE prophylaxis: LMWH Charges/Coding Visit Charges Inpatient E&M: 32254 Subs Hosp L2
[2024-02-13] MEDS: Metoprolol Tartrate 100 MG Tablet PO ×2 (09:46→21:50)
[2024-02-13] MEDS: Enoxaparin 40 MG/0.4 ML Syringe SC (09:47)
[2024-02-13] MEDS: levETIRAcetam 750 MG Tablet PO ×2 (09:47→21:50)
[2024-02-13] MEDS: Ceftriaxone 1 GM/50 ML BAG IV (11:38)
[2024-02-13 11:58] LABS: Bedside Glucose 325 mg/dL (74-106)
--- NOTE | 2024-02-13 14:17 | CHAPLAIN ---
Type of Pastoral Visit _x__ Initial Visit ___ Follow-up Visit ___ On-call Visit ___ General Patient Visit ___ Spiritual Assessment ___ Family Conference ___ Bereavement ___ Rapid Response ___ Code Blue ___ Other (describe below) Pastoral Care Referral From _x__ Patient ___ Family ___ Nurse ___ Physician ___ Small Products Assembler ___ Pomology Teacher ___ Other (describe below) Sacrament/Intervention _x__ Active listening ___ Anointing ___ Roman Catholic ___ Bereavement ___ Communion _x__ Taryn exploration ___ _x__ Life review _x__ Prayer ___ Reconciliation ___ Sacrament of Sick ___ Supportive presence ___ Wedding ___ Other (describe below) Pastoral Comments patient is welcoming although indicates that she is handling the situation pretty well; pt admits that she would rather be elsewhere and that she is doing the best she can; pt gives some related information about hospitals and that her father and twin sister have here in recent years; 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
[2024-02-13 17:20] LABS: Bedside Glucose 330 mg/dL (74-106)
[2024-02-13] MEDS: Ipratropium 0.5 MG/2.5 ML SOLUTION INHALATION (17:43)
[2024-02-13] MEDS: Insulin Glargine-YFGN 100 UNIT/ML Pen 10 UNIT SC (21:49)
[2024-02-13] MEDS: Atorvastatin Calcium 80 MG Tablet PO (21:56)
[2024-02-13 23:52] LABS: Bedside Glucose 323 mg/dL (74-106)
[2024-02-14] VITALS (12 sets, daily range): BP systolic 91–116; BP diastolic 46–77; PULSE 77–107; RESP 16–18; TEMP -12.1–37.7; O2SAT 91–98
[2024-02-14] MEDS: Morphine 2 MG/ML Syringe IV ×3 (00:47→10:12)
[2024-02-14] MEDS: Ipratropium 0.5 MG/2.5 ML SOLUTION INHALATION (02:56)
[2024-02-14] MEDS: 0.9% Saline Lock 10 ML Syringe IV ×4 (03:58→14:55)
[2024-02-14] MEDS: Acetaminophen 325 MG Tablet 650 MG PO ×2 (03:58→10:11)
[2024-02-14] MEDS: Insulin Lispro 100 UNIT/ML INSULN.PEN SC ×4 (06:11→21:38)
[2024-02-14 06:28] LABS: Absolute Lymphocyte Count 1.29 X10^3/uL (0.83-4.51); Absolute Neutrophil Count 6.3 X10^3/uL (2.0-7.7); Basophil# 0.05 X10^3/uL; Basophil% 0.6 % (0-1); Eosinophil# 0.03 X10^3/uL; Eosinophils% 0.4 % (0-5); Hematocrit 26.8 % (37-47); Hemoglobin 8.7 g/dL (12.0-15.0); Lymphocyte # 1.29 X10^3/ul (0.83-4.51); Lymphocyte % 15.5 % (19-41); Mean Corp Hgb Conc 32.5 g/dL (32-36); Mean Corpuscular Hgb 30.6 pg (27.0-32.0); Mean Corpuscular Volume 94.4 fL (81-99); Mean Platelet Vol. 10.7 fl (6.2-12.0); Monocyte# 0.47 X10^3/uL; Monocyte% 5.6 % (0-10); NRBC Flagged by Analyzer 0 % (0-5); Neutrophil # 6.33 X10^3/uL (2.7-7.7); Neutrophil % 76.1 % (47-70); Platelet Count 275 K/mm3 (150-450); RBC Distribution Width CV 13.1 % (11.6-14.6); RBC Distribution Width SD 45.5 fl (35.1-43.9); Red Blood Count 2.84 M/mm3 (4.2-5.4); White Blood Count 8.3 K/mm3 (4.4-11.0)
[2024-02-14 06:34] LABS: Bedside Glucose 321 mg/dL (74-106)
[2024-02-14 06:57] LABS: Anion Gap 6 (5-15); BUN 18 mg/dL (7-18); Calcium,Total 8.4 mg/dL (8.5-10.1); Chloride 102 mmol/L (98-107); EST Glomerular Filtration Rate 73 mL/min (>60); Est Glom Filt Rate - Afr Amer 89 mL/min (>60); Estimated Creatinine Clearance 79.22 ml/min; Glucose 357 mg/dL (74-106); Potassium 4.9 mmol/L (3.5-5.1); Sodium Level 130 mmol/L (136-145)
[2024-02-14] MEDS: Ketorolac 15 MG/ML Vial IV ×2 (08:15→14:54)
[2024-02-14] MEDS: Ondansetron 4 MG/2 ML Vial IV ×2 (08:16→21:20)
--- NOTE | 2024-02-14 09:15 | CASEMGMT ---
KEILA BELL Assessment: Face to Face with pt for initial transition planning/care coordination assessment. RN ARABELLA introduced self and role at [facility], pt voices understanding and consents to assessment. Pt is A&O x4 and answers all questions appropriately at this time. Pt lying in bed in no distress. Care providers, pharmacy, and demographics verified/updated. Strata: 2 Admitting Dx: R sided Pyelonephritis PCP: Nikita Specialists: Steven Urologist. [facility] Insurance: [employer] Prescription Benefit: yes LNOK: Sister, Tamara. Living Arrangements: Pt lives with nephew in a duplex with 2 steps to enter. ADLs: Pt states I at baseline. Transportation: Pt drives self and denies concerns with transportation. DME: [employer], oxygen concentrator at home but does not remember where she got it. Uses it as needed. HHC/SNF: Denies Hx of. Pt states no concerns with going home at time of dc. Pt states no further concerns/needs. CM to follow. Advised pt to ask CM if any further question/concerns/needs arise, voices understanding. Pt Goal: Home Plan: Home, follow plan of care. Roxanne PEDRAZA CM
[2024-02-14] MEDS: Metoprolol Tartrate 100 MG Tablet PO ×2 (09:48→21:42)
[2024-02-14] MEDS: Enoxaparin 40 MG/0.4 ML Syringe SC (09:48)
[2024-02-14] MEDS: levETIRAcetam 750 MG Tablet PO ×2 (09:48→21:41)
[2024-02-14] MEDS: Ceftriaxone 1 GM/50 ML BAG IV (09:49)
[2024-02-14 11:50] LABS: Bedside Glucose 313 mg/dL (74-106)
--- NOTE | 2024-02-14 13:59 | PN.HOSP_ITS ---
Reason for Visit Reason for Visit: Diagnoses Tubulo-interstitial nephritis, not specified as acute or chronic (02/12/24) Subjective Subjective Still with fever and chills. Still with flank pain. Objective Data Objective Data Vital Signs: Vital Signs Temp Pulse Resp BP Pulse Ox O2 Del Method 36.6 C 77 16 106/75 96 Room Air 02/14/24 13:15 02/14/24 13:15 02/14/24 13:15 02/14/24 13:15 02/14/24 13:15 02/14/24 13:15 Oxygen Delivery Method Room Air Weight: 80.8 kg Body Mass Index (BMI) 33.6 Intake & Output: Intake and Output for Last 24 Hours 02/12/24 02/13/24 02/14/24 23:59 23:59 23:59 Intake Total 2049 1550 / 1650 350 / 350 Output Total 400 / 400 Balance 2049 1550 / 1250 -50 / -50 Lab / Micro Data 02/14/24 05:48 02/14/24 05:48 Labs: Laboratory Results - last 24 hr 02/13/24 16:25: POC Glucose 330 H 02/13/24 21:39: POC Glucose 323 H 02/14/24 05:48: WBC 8.3, RBC 2.84 L, Hgb 8.7 L, Hct 26.8 L, MCV 94.4, MCH 30.6, MCHC 32.5, RDW Std Deviation 45.5 H, RDW Coeff of Yoni 13.1, Plt Count 275, MPV 10.7, Immature Gran % (Auto) 1.800 H, Neut % (Auto) 76.1 H, Lymph % (Auto) 15.5 L, [place] % (Auto) 5.6, Eos % (Auto) 0.4, Baso % (Auto) 0.6, Absolute Neuts (auto) 6.3, Absolute Lymphs (auto) 1.29, Nucleated RBC % 0, Sodium 130 L, Potassium 4.9, Chloride 102, Carbon Dioxide 22.0, Anion Gap 6, BUN 18, Creatinine 0.90, Estim Creat Clear Calc 79.22, Est GFR (MDRD) Af Amer 89, Est GFR (MDRD) Non-Af 73, BUN/Creatinine Ratio 20.0, Glucose 357 H, Calcium 8.4 L 02/14/24 06:09: POC Glucose 321 H 02/14/24 11:13: POC Glucose 313 H Micro: Microbiology 02/12/24 10:55 Blood Culture (Wb) - Anticubital Left Blood Culture - Final Escherichia coli 02/12/24 10:55 Urine, Clean Catch Urine Culture - Final Presumptive E. coli Physical Exam Const alert and no apparent distress HEENT head/scalp atraumatic and moist oral mucous membranes Resp normal respiratory effort, no retractions, no use of accessory muscles and clear to auscultation bilaterally Cardio regular rate, regular rhythm, S1 normal heart sound and S2 normal heart sound GI normal to inspection, nondistended, normoactive bowel sounds, soft to palpation, non-tender and non-distended Extremity normal to inspection and full ROM Assessment & Plan Assessment/Plan (1) Pyelonephritis: PLAN: Plan Acute right pyelonephrosis * CT scan with 3.1 cm x 2.1 cm round hypodensity in upper mid lateral portion of right kidney and was recommended to correlate ultrasound to rule out possible localized pyelonephritis. US negative. * Abx with CTX * Shukla-sensitive E. coli. Bacteremia * 2/2 pyelonephritis. Shukla sensitive E. coli. Tachycardia * due to underlying infection. qSOFA 1, so not septic based on SEP-3 criteria. * h/o SVT and takes metoprolol tartrate 100 BID. hyponatremia * slightly improved. monitor. DM2: * uncontrolled. exacerbated by underlying illness. * a1c 8.3 * metformin held give IV contrast * on SSI and glargine. Increase glargine to 20. Seizure d/o * continue levetiracetam VTE prophylaxis: LMWH Disposition: monitor at least 1 more day. Charges/Coding Visit Charges Inpatient E&M: 18559 Subs Hosp L2
[2024-02-14] MEDS: oxyCODONE 5 MG Tablet PO ×3 (15:02→23:02)
[2024-02-14 17:29] LABS: Bedside Glucose 297 mg/dL (74-106)
[2024-02-14] MEDS: Insulin Glargine-YFGN 100 UNIT/ML Pen 20 UNIT SC (21:39)
[2024-02-14] MEDS: Atorvastatin Calcium 80 MG Tablet PO (21:43)
[2024-02-14] MEDS: Acetaminophen 500 MG Tablet 1000 MG PO (21:44)
[2024-02-14 22:25] LABS: Bedside Glucose 293 mg/dL (74-106)
[2024-02-15] VITALS (8 sets, daily range): BP systolic 96–110; BP diastolic 62–77; PULSE 85–100; RESP 16–20; TEMP 36.7–37.3; O2SAT 94–96
[2024-02-15] MEDS: oxyCODONE 5 MG Tablet PO ×3 (03:07→13:53)
[2024-02-15 04:33] LABS: Absolute Lymphocyte Count 1.47 X10^3/uL (0.83-4.51); Absolute Neutrophil Count 6.4 X10^3/uL (2.0-7.7); Basophil# 0.03 X10^3/uL; Basophil% 0.3 % (0-1); Eosinophil# 0.05 X10^3/uL; Eosinophils% 0.6 % (0-5); Hematocrit 28.3 % (37-47); Hemoglobin 8.8 g/dL (12.0-15.0); Lymphocyte # 1.47 X10^3/ul (0.83-4.51); Mean Corp Hgb Conc 31.1 g/dL (32-36); Mean Corpuscular Hgb 29.4 pg (27.0-32.0); Mean Corpuscular Volume 94.6 fL (81-99); Mean Platelet Vol. 10.5 fl (6.2-12.0); Monocyte# 0.54 X10^3/uL; Monocyte% 6.3 % (0-10); NRBC Flagged by Analyzer 0 % (0-5); Neutrophil # 6.35 X10^3/uL (2.7-7.7); Neutrophil % 73.6 % (47-70); Platelet Count 291 K/mm3 (150-450); RBC Distribution Width CV 12.9 % (11.6-14.6); Red Blood Count 2.99 M/mm3 (4.2-5.4); White Blood Count 8.6 K/mm3 (4.4-11.0)
[2024-02-15 05:46] LABS: Anion Gap 6 (5-15); BUN 13 mg/dL (7-18); Calcium,Total 8.9 mg/dL (8.5-10.1); Chloride 102 mmol/L (98-107); Creatinine, Serum 0.87 mg/dL (0.55-1.02); EST Glomerular Filtration Rate 76 mL/min (>60); Est Glom Filt Rate - Afr Amer 92 mL/min (>60); Estimated Creatinine Clearance 81.95 ml/min; Glucose 277 mg/dL (74-106); Potassium 4.5 mmol/L (3.5-5.1); Sodium Level 133 mmol/L (136-145)
[2024-02-15] MEDS: Acetaminophen 500 MG Tablet 1000 MG PO ×2 (06:36→13:53)
[2024-02-15] MEDS: Insulin Lispro 100 UNIT/ML INSULN.PEN SC ×2 (06:40→11:40)
[2024-02-15 07:01] LABS: Bedside Glucose 244 mg/dL (74-106)
[2024-02-15] MEDS: Enoxaparin 40 MG/0.4 ML Syringe SC (08:06)
[2024-02-15] MEDS: Metoprolol Tartrate 100 MG Tablet PO (08:06)
[2024-02-15] MEDS: levETIRAcetam 750 MG Tablet PO (08:06)
[2024-02-15] MEDS: 0.9% Saline Lock 10 ML Syringe IV (10:24)
[2024-02-15] MEDS: Ceftriaxone 1 GM/50 ML BAG IV (10:24)
[2024-02-15 12:00] LABS: Bedside Glucose 217 mg/dL (74-106)
--- NOTE | 2024-02-15 13:41 | DS.PCM_ITS ---
Providers Date of Admission: 02/12/24 Primary Care Physician: Dr. Ricky Shelton MD Reason For Visit: RIGHT-SIDED PYELONEPHRITIS Diagnosis Discharge Diagnosis (1) Pyelonephritis: Status: Acute Code(s): N12 - Tubulo-interstitial nephritis, not specified as acute or chronic Plan Acute right pyelonephrosis * CT scan with 3.1 cm x 2.1 cm round hypodensity in upper mid lateral portion of right kidney and was recommended to correlate ultrasound to rule out possible localized pyelonephritis. US negative. * Abx with CTX * Shukla-sensitive E. coli. Discharge with 7 more days of ciprofloxacin. Bacteremia * 2/2 pyelonephritis. Shukla sensitive E. coli. Cipro Tachycardia * due to underlying infection. qSOFA 1, so not septic based on SEP-3 criteria. * h/o SVT and takes metoprolol tartrate 100 BID. hyponatremia * slightly improved. monitor. DM2: * uncontrolled. exacerbated by underlying illness. * a1c 8.3 * metformin held give IV contrast * on SSI and glargine. Increase glargine to 20. Seizure d/o * continue levetiracetam VTE prophylaxis: LMWH Disposition: monitor at least 1 more day. Medications at Discharge Home Medications albuterol sulfate 90 mcg/actuation aerosol inhaler 2 puff inhalation Q6H PRN PRN Shortness Of Breath 06/28/13 multivitamin,ih-tsiq-gavoahrg 27 mg-0.4 mg tablet 1 tab PO DAILY health maintenance 06/28/13 diazepam 5 mg tablet 5 mg PO BID PRN PRN seizure activity 03/27/19 ascorbic acid (vitamin C) 500 mg tablet 500 mg PO DAILY supplement 06/26/19 levetiracetam 250 mg tablet 750 mg PO BID Seizures 06/26/19 zolpidem 10 mg tablet 10 mg PO QHS PRN insomnia 06/26/19 furosemide 40 mg tablet 40 mg PO DAILY diuretic #30 tabs 04/13/20 phenazopyridine 200 mg tablet (Pyridium) 200 mg PO TID PRN PRN Bladder Spasms 7 days #30 tabs 11/17/22 atorvastatin 80 mg tablet 80 mg PO QHS cholesterol 08/11/23 hydrochlorothiazide 12.5 mg capsule 12.5 mg PO DAILY heart 08/11/23 acetaminophen 500 mg tablet 1,000 mg (2 x 500 mg) PO Q8 #0 tabs 02/15/24 ciprofloxacin HCl 500 mg tablet 500 mg PO BID #14 tabs 02/15/24 insulin glargine-yfgn 100 unit/mL (3 mL) subcutaneous pen 20 unit (0.2 mL) subcut QHS #15 mL 02/15/24 metoprolol tartrate 100 mg tablet 100 mg PO BID #60 tabs 02/15/24 oxycodone 5 mg tablet 5 mg PO Q4H PRN PRN Pain Score 6-10 3 days #12 tabs 02/15/24 pen needle, diabetic 29 gauge x 1/2 #100 ea 02/15/24 Hospital Course Operations None Procedures None Summary of Care Provided Minutes Spent on Discharge: 33 Hospital Course: Patient presents with acute right-sided pyelonephritis. Patient was found to have right-sided pyelonephritis. CAT scan was concerning for a mass but that was not seen on ultrasound. She is also bacteremic. Cultures grew out pansensitive E. coli. Patient will be discharged with course of ciprofloxacin for discharge. Weight / BMI Weight Weight: 80.8 kg Body Mass Index (BMI) 33.6 ABG / Lab / Microbiology Data 02/15/24 03:45 02/15/24 03:45 Laboratory: Laboratory Results - last 24 hr 02/14/24 17:03: POC Glucose 297 H 02/14/24 21:37: POC Glucose 293 H 02/15/24 03:45: WBC 8.6, RBC 2.99 L, Hgb 8.8 L, Hct 28.3 L, MCV 94.6, MCH 29.4, MCHC 31.1 L, RDW Std Deviation 45.0 H, RDW Coeff of Yoni 12.9, Plt Count 291, MPV 10.5, Immature Gran % (Auto) 2.200 H, Neut % (Auto) 73.6 H, Lymph % (Auto) 17.0 L, Teller % (Auto) 6.3, Eos % (Auto) 0.6, Baso % (Auto) 0.3, Absolute Neuts (auto) 6.4, Absolute Lymphs (auto) 1.47, Nucleated RBC % 0, Sodium 133 L, Potassium 4.5, Chloride 102, Carbon Dioxide 24.0, Anion Gap 6, BUN 13, Creatinine 0.87, Estim Creat Clear Calc 81.95, Est GFR (MDRD) Af Amer 92, Est GFR (MDRD) Non-Af 76, BUN/Creatinine Ratio 15.0, Glucose 277 H, Calcium 8.9 02/15/24 06:39: POC Glucose 244 H 02/15/24 11:39: POC Glucose 217 H Microbiology: Microbiology 02/12/24 10:55 Blood Culture (Wb) - Anticubital Left Blood Culture - Final Escherichia coli 02/12/24 10:55 Urine, Clean Catch Urine Culture - Final Presumptive E. coli D/C Instructions Discharge Diet: No restrictions Meaningful Use Info Meaningful Use Meaningful Use Diagnoses (Choose all that apply): None applicable Ischemic Stroke Statin Dosing Therapy Reference: STATIN DOSE THERAPY REFERENCE: * Patients > 75 years receive moderate or high dose statin therapy. * Patients 75 years or YOUNGER should receive HIGH intensity statin dose unless contraindicated. You will be required to document reason for non-treatment if statin daily dose does not meet guidelines. HIGH DOSE STATIN THERAPY DAILY Atorvastatin > than or = to 40 mg Rosuvastatin > than or = to 20 mg Amlodipine + Atorvastatin > than or = to 2.5/40 mg Ezetimibe + Simvastatin 10/80 mg Simvastatin 80mg Discharge Plan Admission Admit Date/Time: 02/12/24 15:34 Primary Reason for Your Visit: Pyelonephritis Attending Provider: Federico Tuttle Primary Care Provider: Ricky Shelton Consulting Providers: Ankita Shah Instructions Additional Instructions / Restrictions: He had kidney infection that leached on to your bloodstream. Your overall are doing better. Please take the antibiotics (ciprofloxacin) until its completed. Your blood sugar is also very poorly controlled. Your A1c was 8.3 despite being on metformin. I have switched over to Lantus (insulin glargine). That dose may need to be titrated upwards based on your response. Discharge Orders/Prescriptions Prescriptions: New acetaminophen 500 mg Tablet 1,000 mg PO Q8 Qty: 0 0RF insulin glargine-yfgn 100 unit/mL (3 mL) Insulin Pen 20 unit subcut QHS Qty: 15 0RF metoprolol tartrate 100 mg Tablet 100 mg PO BID Qty: 60 0RF oxycodone 5 mg Tablet 5 mg PO Q4H PRN PRN (Reason: Pain Score 6-10) 3 Days Qty: 12 0RF (DME) pen needle, diabetic 29 gauge x 1/2 needle See Rx Instructions .Route Qty: 100 0RF Rx Instructions: As directed ciprofloxacin HCl 500 mg tablet 500 mg PO BID Qty: 14 0RF Continued levetiracetam 250 mg tablet 750 mg PO BID ascorbic acid (vitamin C) 500 mg tablet 500 mg PO DAILY albuterol sulfate 1 INHALER inhaler 2 puff inhalation Q6H PRN PRN (Reason: Shortness Of Breath) multivitamin,gb-cmna-ygwbqynp 1 TABLET tablet 1 tab PO DAILY diazepam 5 mg tablet 5 mg PO BID PRN PRN (Reason: seizure activity) zolpidem 10 mg tablet 10 mg PO QHS PRN (Reason: insomnia) Patient Comments: TAKE 1 TABLET AT BEDTIME NEEDED FOR INSOMNIA furosemide 40 MG tablet 40 mg PO DAILY Qty: 30 0RF phenazopyridine [Pyridium] 200 mg tablet 200 mg PO TID PRN PRN (Reason: Bladder Spasms) 7 Days Qty: 30 0RF atorvastatin 80 mg tablet 80 mg PO QHS hydrochlorothiazide 12.5 mg capsule 12.5 mg PO DAILY Discontinued metformin 500 MG tablet 1,000 mg PO BID metoprolol tartrate 100 mg tablet 150 mg PO BID Qty: 90 11RF verapamil 120 mg capsule,ext rel. pellets 24 hr 120 mg PO DAILY Qty: 90 3RF Other Ambulatory Orders: Glucometer (Routine) Timeframe: 1 Day Location: Determined by Patient Ordered By: Dr. Federico Tuttle Referrals / Follow Up: Ricky Shelton MD [Primary Care Provider] - Within 2 Weeks Disposition Disposition (needs filled in before D/C Order can be placed): Home, Self Care Charges/Coding Visit Charges Inpatient E&M: 99000 Disch Hosp >30min
[2024-02-15] MEDS: Ipratropium 0.5 MG/2.5 ML SOLUTION INHALATION (14:03)
--- NOTE | 2024-02-15 14:16 | CASEMGMT ---
Patient has order for discharge. RN CM in to discuss needs at discharge. Patient states she has glucometer with supplies at home. Patient denies needs or help at discharge. Patient had no further questions or concerns.
== END 2024-02-15 16:34 | disposition home or self-care (01) | DRG 690 ==
LOC: ED 15:01 → PCU 15:50
PROVIDERS: Admitting Provider Internal Medicine; Emergency Provider Emergency Medicine; PCP Family Medicine
DX: N10 Acute pyelonephritis (principal); R78.81 Bacteremia; E87.1 Hypo-osmolality and hyponatremia; Z90.6 Acquired absence of other parts of urinary tract; E11.9 Type 2 diabetes mellitus without complications; B96.20 Unspecified Escherichia coli [E. coli] as the cause of diseases classified elsewhere; R56.9 Unspecified convulsions; Z79.84 Long term (current) use of oral hypoglycemic drugs; Z79.899 Other long term (current) drug therapy; R00.0 Tachycardia, unspecified
CPT/HCPCS: 36415; 74177; 76770; 80048; 80053; 80076; 81001; 82962; 83036; 83605; 83735; 84443; 84702; 85025; 85610; 85730; 87040; 87086; 87088; 87186; 94640; 97802; 99285; J7030; J7040; Q9967; A4216; J2405